=== PATIENT | male | born 1930 | race Caucasian/White ===

== ENCOUNTER 2016-06-20 12:59 | Inpatient (IN) | payer MEDICARE, OTHER ==
[2016-06-20] MEDS ORDERED: NALOXONE 0.4 MG/ML 1 ML VIAL IV PRN (15:52)
[2016-06-20] MEDS ORDERED: ACETAMINOPHEN TAB 325 MG TAB PO PRN (15:52)
[2016-06-20] MEDS ORDERED: ALPRAZolam 0.25 MG TAB PO PRN (15:54)
--- NOTE | 2016-06-20 16:26 | XR ---
EXAMINATION TYPE: XR chest 1V portable DATE OF EXAM: 06/20/2016 4:22 PM COMPARISON: NONE HISTORY: Pleural effusion TECHNIQUE: Single frontal view of the chest is obtained. FINDINGS: Abnormal increased attenuation present at the left lung base, the left hemidiaphragm is ob scured. Patient is rotated. No evident pneumothorax. Heart is obscured. IMPRESSION: Left lower lobe atelectasis versus pneumonia or underlying tumor with associated effusio n. Rotated exam. Follow-up as indicated.
[2016-06-20] MEDS: SODIUM CHLORIDE 0.9% 1,000 ML IV SCH (16:46)
[2016-06-20] MEDS ORDERED: NON-FORMULARY DRUG (Omeprazole 20 MG) PO SCH (17:00)
[2016-06-20 17:16] LABS: Anisocytosis Slight; Basophils % (A) 1 %; CHCM 32.3; Eosinophils # (A) 0.2 k/uL (0-0.7); Eosinophils % (A) 3 %; HCT 32.6 % (39.0-53.0); HDW 3.25; HGB 10.6 gm/dL (13.0-17.5); Hypochromasia Slight; Luc # (Auto) 0.23; Luc % (Auto) 4; Lymphocytes # (A) 1.1 k/uL (1.0-4.8); Lymphocytes % (A) 17 %; MCH 30.2 pg (25.0-35.0); MCHC 32.5 g/dL (31.0-37.0); MCV 93.1 fL (80.0-100.0); Mean Platelet Volume 8.7; Monocytes # (A) 0.5 k/uL (0-1.0); Monocytes % (A) 8 %; Neutrophils # (A) 4.2 k/uL (1.3-7.7); Neutrophils % (A) 67 %; RDW 16.4 % (11.5-15.5); WBC 6.2 k/uL (3.8-10.6); WBC (Perox) 6.76
[2016-06-20 17:24] LABS: ALT 70 U/L (21-72); AST 117 U/L (17-59); Alkaline Phosphatase 82 U/L (38-126); Anion Gap 11 mmol/L; Blood Urea Nitrogen 35 mg/dL (9-20); Calcium 9.7 mg/dL (8.4-10.2); Carbon Dioxide 26 mmol/L (22-30); Chloride 105 mmol/L (98-107); Glucose 109 mg/dL (74-99); Magnesium 1.9 mg/dL (1.6-2.3); Non-African American GFR(MDRD) 53 (>60 ml/min/1.73 sqM); Phosphorous 4.9 mg/dL (2.5-4.5); Potassium 4.4 mmol/L (3.5-5.1); Sodium 142 mmol/L (137-145); Total Bilirubin 0.6 mg/dL (0.2-1.3); Total Protein 6.5 g/dL (6.3-8.2)
[2016-06-20] MEDS: ATENOLOL 50 MG TAB PO SCH (17:25)
[2016-06-20] MEDS: LEVOFLOXACIN 500MG-D5W PMX 500 MG in DEXTROSE/WATER 1 100ML.BAG IVPB SCH (17:26)
[2016-06-20] MEDS: FUROSEMIDE 10 MG/ML 2 ML VIAL IV SCH (17:26)
[2016-06-20] MEDS: ISOSORBIDE MONONITRATE ER 30 MG TAB.ER.24H PO SCH (17:26)
[2016-06-20] MEDS: LISINOPRIL 20 MG TAB PO SCH (17:29)
[2016-06-20] MEDS: POTASSIUM CHLORIDE ER 20 MEQ TAB.ER PO SCH (17:30)
[2016-06-20 17:33] LABS: Manual Review Performed; Toxic Granulation Present
[2016-06-20 17:41] LABS: Creatine Kinase MB 1.6 ng/mL (0.0-2.4)
--- NOTE | 2016-06-20 18:43 | HP ---
DATE OF ADMISSION: CHIEF COMPLAINT: Shortness of breath and pleural effusion. HISTORY OF PRESENT ILLNESS: This 85-year-old gentleman with a past history of CAD, history of hypertension, hyperlipidemia, history of DJD, history of hypotension, history of colon cancer, history of appendectomy, history of tonsillectomy, adenoidectomy, being followed by Dr. Yury Talavera in the outpatient setting, presented to [facility] last week with complaints of abdominal pain and shortness of breath. Evaluation showed pleural effusion on the left side and further evaluation with CT scan also showed suspicious nodules. The patient was directly transferred to [facility] for further evaluation and treatment. The abdominal pain has improved at this time. The patient still has some shortness of breath and cough and sputum. There is no history of any fever, rigor, or chills. No history of any headache, loss of consciousness. PAST MEDICAL HISTORY: 1. History of CAD. 2. History of CAD. 3. History of hyperlipidemia. 4. History of hypertension. 5. History of DJD. 6. Adenoidectomy. 7. Appendectomy. Medications prior to admission include: 1. Prilosec 20 mg p.o. daily. 2. Methotrexate 7.5 mg q.7 days. 3. Imdur 30 mg daily. 4. Lasix 20 mg daily. 5. Folic acid 1 mg daily. 6. Klor-Con 20 mEq p.o. daily. 7. Zestril 20 mg p.o. daily. 8. Tenormin 50 mg daily. ALLERGIES: PENICILLIN and CRESTOR. FAMILY HISTORY: No history of heart disease or strokes in the family. SOCIAL HISTORY: Previous history of smoking. No current smoking or alcohol intake. REVIEW OF SYSTEMS: ENT: Diminished hearing. Diminished vision. CARDIOVASCULAR SYSTEM: As mentioned earlier. RESPIRATORY SYSTEM: As mentioned earlier. GI: As mentioned earlier. : No dysuria, retention. NERVOUS SYSTEM: No numbness or weakness. ALLERGY/IMMUNOLOGY: No asthma or hayfever. MUSCULOSKELETAL: As mentioned earlier. HEMATOLOGY/ONCOLOGY: As mentioned earlier. ENDOCRINE: No history of diabetes, hypothyroidism. CONSTITUTIONAL: As mentioned earlier. DERMATOLOGY: Negative. RHEUMATOLOGY: Negative. PSYCHIATRY: As mentioned earlier. PHYSICAL EXAMINATION: Patient alert and oriented x3. Pulse 73, blood pressure 136/63, respiration 18, temperature 97.7, pulse ox 94% on 2 L. HEENT: Conjunctivae normal. NECK: No jugular venous distention. CARDIOVASCULAR SYSTEM: S1, S2 muffled. No S3. No S4. RESPIRATORY SYSTEM: Breath sounds diminished at the bases. A few scattered rhonchi and crackles. Breath sounds are markedly diminished in the left side. ABDOMEN: Soft, nontender. No mass palpable. No hepatosplenomegaly. LEGS: No edema. No swelling. Pulses felt normally. NERVOUS SYSTEM: Higher functions as mentioned earlier. Moves all 4 limbs. No focal motor or sensory deficit. LYMPHATICS: No lymph node palpable in neck, axillae or groin. SKIN: No ulcer, rash, bleeding. Chest x-ray shows left pleural effusion. Other labs are pending at this time. ASSESSMENT: 1. Left-sided pleural effusion with possible pulmonary nodules; rule out metastatic pleural effusion. 2. History of colon cancer. 3. Possible chronic obstructive pulmonary disease. 4. Acute purulent tracheobronchitis. 5. Coronary artery disease. 6. History of hypertension. 7. Hyperlipidemia. 8. Degenerative joint disease. 9. History of anemia. 10. History of skin cancer. 11. History of appendectomy. 12. History of tonsillectomy. 13. History of cataracts. 14. Remote history of nicotine dependence. 15. FULL CODE. RECOMMENDATION: In this 85-year-old gentleman who presented with multiple complex medical issues, we will monitor the patient closely. I recommend empiric antibiotics and also pulmonary consultation for possible thoracocentesis and further evaluation. Otherwise, resume the home medications. DVT prophylaxis. Guarded prognosis. Further recommendations to follow. A copy of this dictation is being forwarded to Dr. Yury Talavera, who is the primary physician.
[2016-06-20] MEDS: LEVALBUTEROL NEB (CONC) 1.25 MG/0.5 ML AMP INHALATION SCH (19:03)
[2016-06-20] MEDS: IPRATROPIUM 0.5 MG/2.5 ML NEBU INHALATION SCH (19:03)
[2016-06-20] MEDS ORDERED: TEMAZEPAM 15 MG CAP PO PRN (21:00)
[2016-06-20] MEDS ORDERED: MELATONIN 3 MG TABLET PO PRN (21:00)
[2016-06-20 23:33] LABS: Creatine Kinase MB 1.2 ng/mL (0.0-2.4); Troponin I 0.023 ng/mL (0.000-0.034)
[2016-06-20] MEDS: HEPARIN SODIUM,PORCINE 5,000 UNIT/ML 1 ML VIAL SQ SCH (23:38)
[2016-06-21] MEDS: PANTOPRAZOLE 40 MG TABLET PO SCH (06:25)
[2016-06-21 06:59] LABS: Anisocytosis Slight; Basophils # (A) 0.1 k/uL (0-0.2); Basophils % (A) 1 %; CHCM 32.6; Eosinophils # (A) 0.2 k/uL (0-0.7); Eosinophils % (A) 3 %; HCT 32.5 % (39.0-53.0); HGB 10.5 gm/dL (13.0-17.5); Luc # (Auto) 0.21; Luc % (Auto) 3; Lymphocytes % (A) 14 %; MCHC 32.4 g/dL (31.0-37.0); MCV 92.4 fL (80.0-100.0); Monocytes # (A) 0.7 k/uL (0-1.0); Monocytes % (A) 9 %; Neutrophils % (A) 70 %; RBC 3.51 m/uL (4.30-5.90); RDW 16.3 % (11.5-15.5); WBC 7.1 k/uL (3.8-10.6); WBC (Perox) 7.43
[2016-06-21 07:09] LABS: Anion Gap 10 mmol/L; Blood Urea Nitrogen 30 mg/dL (9-20); Calcium 9.8 mg/dL (8.4-10.2); Carbon Dioxide 26 mmol/L (22-30); Chloride 107 mmol/L (98-107); Glucose 95 mg/dL (74-99); Non-African American GFR(MDRD) 58 (>60 ml/min/1.73 sqM); Potassium 4.4 mmol/L (3.5-5.1); Sodium 143 mmol/L (137-145)
[2016-06-21 07:16] LABS: Troponin I 0.024 ng/mL (0.000-0.034)
[2016-06-21 07:18] LABS: Manual Review Performed
[2016-06-21 07:20] LABS: Creatine Kinase MB 2.5 ng/mL (0.0-2.4)
[2016-06-21] MEDS: HEPARIN SODIUM,PORCINE 5,000 UNIT/ML 1 ML VIAL SQ SCH ×2 (07:46→21:06)
[2016-06-21] MEDS: FUROSEMIDE 10 MG/ML 2 ML VIAL IV SCH (07:46)
[2016-06-21] MEDS: ISOSORBIDE MONONITRATE ER 30 MG TAB.ER.24H PO SCH (07:47)
[2016-06-21] MEDS: POTASSIUM CHLORIDE ER 20 MEQ TAB.ER PO SCH (07:47)
[2016-06-21] MEDS: FOLIC ACID 1 MG TAB PO SCH (07:47)
[2016-06-21] MEDS: LISINOPRIL 20 MG TAB PO SCH (07:47)
[2016-06-21] MEDS: METHOTREXATE SODIUM 2.5 MG TAB PO SCH (07:47)
[2016-06-21] MEDS: ATENOLOL 50 MG TAB PO SCH (07:47)
[2016-06-21] MEDS: IPRATROPIUM 0.5 MG/2.5 ML NEBU INHALATION SCH ×3 (08:05→20:35)
[2016-06-21] MEDS: LEVALBUTEROL NEB (CONC) 1.25 MG/0.5 ML AMP INHALATION SCH ×3 (08:05→20:36)
[2016-06-21] MEDS ORDERED: PREGABALIN 50 MG CAP PO SCH ×2 (09:00→22:08)
[2016-06-21] MEDS ORDERED: RX INFO: IV CONTRAST WAS GIVEN 1 EACH MISC MISCELLANE PRN (10:40)
--- NOTE | 2016-06-21 10:40 | P.CONS ---
History of Present Illness - Reason for Consult Consult date: 06/21/16 - History of Present Illness The patient is an 85-year-old gentleman, with multiple medical problems. He states that he started feeling unwell about 2-3 weeks ago, with the weakness, decreased endurance, as well as shortness of breath on exertion. In addition he also complained of some left-sided lower abdominal pain. Due to progression of these symptoms represented to [facility]. He had a computed tomography scan done which showed the significant pleural effusion on the left side along with lung nodules. The patient was therefore transferred here for further workup. The patient has a history of colon cancer 2. He states that he had surgery about 5 years ago, as well as about 20 years ago. From his history it appears that these were early stage cancers as he did not require any adjuvant treatment. Review of Systems Constitutional: Reports poor appetite, Reports weakness, Reports weight loss ( 15 pounds) Eyes: denies blurred vision, denies pain Ears: bilateral: decreased hearing, deny: ear discharge, earache, tinnitus Ears, nose, mouth and throat: Denies headache, Denies sore throat Cardiovascular: Reports shortness of breath Respiratory: Reports congestion, Reports cough, Reports dyspnea Gastrointestinal: Reports abdominal pain Genitourinary: Reports incontinence, Reports urinary frequency Musculoskeletal: Reports muscle weakness Integumentary: Denies pruritus, Denies rash Neurological: Reports weakness Psychiatric: Denies anxiety, Denies depression Endocrine: Reports fatigue, Reports weight change Hematologic/Lymphatic: Reports as per HPI Past Medical History Past Medical History: Coronary Artery Disease (CAD), Cancer, Eye Disorder, Hyperlipidemia, Hypertension, Osteoarthritis (OA) Additional Past Medical History / Comment(s): hypotension, partial (bottom) dentures, anemia, colon ca, skin ca History of Any Multi-Drug Resistant Organisms: None Reported Past Surgical History: Adenoidectomy, Appendectomy, Tonsillectomy Additional Past Surgical History / Comment(s): Bilat cataract removal Past Anesthesia/Blood Transfusion Reactions: No Reported Reaction Past Psychological History: No Psychological Hx Reported Smoking Status: Former smoker Past Alcohol Use History: None Reported Past Drug Use History: None Reported - Past Family History Mother History Unknown: Yes Family Medical History: No Reported History Medications and Allergies Home Medications Medication Instructions Recorded Confirmed Type Atenolol [Tenormin] 50 mg PO DAILY 06/20/16 06/20/16 History Folic Acid 1 mg PO DAILY 06/20/16 06/20/16 History Furosemide [Lasix] 20 mg PO DAILY 06/20/16 06/20/16 History Isosorbide Mononitrate ER [Imdur] 30 mg PO DAILY 06/20/16 06/20/16 History Lisinopril [Zestril] 20 mg PO DAILY 06/20/16 06/20/16 History Methotrexate Sodium [Methotrexate] 7.5 mg PO Q7D 06/20/16 06/20/16 History Omeprazole [PriLOSEC] 20 mg PO DAILY 06/20/16 06/20/16 History Potassium Chloride [Klor-Con 20] 20 meq PO DAILY 06/20/16 06/20/16 History Pregabalin [Lyrica] 50 mg PO DAILY 06/20/16 06/20/16 History Allergies Allergy/AdvReac Type Severity Reaction Status Date / Time Penicillins Allergy Unknown Verified 06/20/16 16:07 rosuvastatin [From Crestor] Allergy Unknown Verified 06/20/16 16:07 Physical Exam Vitals: Vital Signs Temp Pulse Pulse Resp BP Pulse Ox 06/21/16 08:00 97.0 F L 73 20 162/69 94 L 06/21/16 04:00 96.5 F L 67 16 147/64 94 L 06/21/16 00:00 96.7 F L 72 17 131/60 93 L 06/20/16 20:00 96.8 F L 74 18 125/56 91 L 06/20/16 19:10 72 06/20/16 19:03 69 06/20/16 15:52 94 L 06/20/16 15:49 97.7 F 73 18 136/63 94 L Intake and Output 06/20/16 06/21/16 06/21/16 22:59 06:59 14:59 Intake Total 145 Output Total 400 Balance -255 Intake: IV 20 Sodium Chloride 0.9% 1, 20 000 ml @ 20 mls/hr IV . Q24H [facility] Rx#:[id number] Oral 125 Output: Urine 400 Other: Voiding Method Diaper Diaper Diaper # Voids 1 1 # Bowel Movements 1 Weight 61.23 kg 64.5 kg 64.5 kg Patient Weight 06/22/16 06:59 Weight 64.5 kg - Constitutional General appearance: morbidly obese - EENT Eyes: EOMI, PERRLA ENT: hard of hearing, normal oropharynx - Neck Neck: no lymphadenopathy Thyroid: bilateral: normal size - Respiratory Respiratory: left: diminished (Lower lobe), dullness (Lower lobe) - Cardiovascular Rhythm: regular Heart sounds: normal: S1, S2 - Gastrointestinal General gastrointestinal: normal bowel sounds, soft - Integumentary Integumentary: normal - Neurologic Neurologic: focal deficits (Hard of hearing) - Musculoskeletal Musculoskeletal: generalized weakness - Psychiatric Psychiatric: A&O x's 3, appropriate affect Results CBC & Chem 7: 06/21/16 05:32 06/21/16 05:32 Labs: Abnormal Lab Results - Last 24 Hours (Table) 06/20/16 06/20/16 06/21/16 Range/Units 16:46 16:46 05:32 RBC 3.50 L 3.51 L (4.30-5.90) m/uL Hgb 10.6 L 10.5 L (13.0-17.5) gm/dL Hct 32.6 L 32.5 L (39.0-53.0) % RDW 16.4 H 16.3 H (11.5-15.5) % Plt Count 100 L 86 L (150-450) k/uL BUN 35 H (9-20) mg/dL Creatinine 1.29 H (0.66-1.25) mg/dL Glucose 109 H (74-99) mg/dL Phosphorus 4.9 H (2.5-4.5) mg/dL AST 117 H (17-59) U/L Total Creatine Kinase (55-170) U/L CK-MB (CK-2) (0.0-2.4) ng/mL Albumin 3.3 L (3.5-5.0) g/dL 06/21/16 06/21/16 Range/Units 05:32 05:32 RBC (4.30-5.90) m/uL Hgb (13.0-17.5) gm/dL Hct (39.0-53.0) % RDW (11.5-15.5) % Plt Count (150-450) k/uL BUN 30 H (9-20) mg/dL Creatinine (0.66-1.25) mg/dL Glucose (74-99) mg/dL Phosphorus (2.5-4.5) mg/dL AST (17-59) U/L Total Creatine Kinase 254 H (55-170) U/L CK-MB (CK-2) 2.5 H* (0.0-2.4) ng/mL Albumin (3.5-5.0) g/dL Microbiology - Last 24 Hours (Table) 06/20/16 17:56 Urine Culture - Preliminary Urine,Voided Chest x-ray: report reviewed CT scan - chest: report reviewed Assessment and Plan (1) Pleural effusion Narrative/Plan: The patient is presenting with a unilateral pleural effusion, that is symptomatic. It is also associated with systemic symptoms such as weakness, loss of appetite and weight. The clinical picture is suspicious for malignancy , though other drug is are not ruled out at this time. He will need a tissue diagnosis, with the thoracentesis being the most suitable procedure, both from the therapeutic and diagnostic standpoint. Pulmonary medicine has been consulted. Since malignancy is concerned, I will also order computed tomography scan of the abdomen and pelvis. The patient was having abdominal pain previously, though this symptom appears to have subsided. Status: Acute (2) History of colon cancer Narrative/Plan: Per the patient, he actually has a history of 2 colon cancers, both treated with surgery. These appear to have been early stage with no adjuvant therapy needed, per the patient. Since recurrence with early-stage colon cancer after surgery is quite rare, and even more so after 5 years, and this time it is unlikely that this history is associated with his current presentation Status: Acute (3) Bicytopenia Narrative/Plan: The patient has a mild bicytopenia with hemoglobin in the 10-11 range, and platelets greater than 50. In this age group, and early myelodysplasia is likely diagnosis. Again, other etiologies are not ruled out. Labs for further workup will be ordered Status: Acute
--- NOTE | 2016-06-21 13:20 | P.CNPUL ---
History of Present Illness Consult date: 06/21/16 Reason for consult: dyspnea, cough, pneumonia Chief complaint: Shortness of breath and left-sided pleural effusion, possible pneumonia History of present illness: This is a 85-year-old man with a history of CAD hypertension hyperlipidemia DJD colon cancer. He sees Dr. Yury Talavera up in [place] as his primary doctor. He apparently presented to [facility] with complaints of abdominal pain and shortness of breath. He was found to have a pleural effusion on the left side. He apparently also had a computed tomography scan of the chest which showed suspicious nodules. The patient was transferred down to [facility]. We have limited information on this patient. He is a very poor historian. It appears his only complaints right now include weakness. Also complaining of some cough. No phlegm production. His past medical history is positive for CAD hyperlipidemia hypertension DJD colon cancer. Review of Systems ROS unobtainable: due to mental status (Review of systems is an appropriate or not reliable because of the patient's poor mental status and inability to give a history.) Past Medical History Past Medical History: Coronary Artery Disease (CAD), Cancer, Eye Disorder, Hyperlipidemia, Hypertension, Osteoarthritis (OA) Additional Past Medical History / Comment(s): hypotension, partial (bottom) dentures, anemia, colon ca, skin ca History of Any Multi-Drug Resistant Organisms: None Reported Past Surgical History: Adenoidectomy, Appendectomy, Tonsillectomy Additional Past Surgical History / Comment(s): Bilat cataract removal Past Anesthesia/Blood Transfusion Reactions: No Reported Reaction Past Psychological History: No Psychological Hx Reported Smoking Status: Former smoker Past Alcohol Use History: None Reported Past Drug Use History: None Reported - Past Family History Mother History Unknown: Yes Family Medical History: No Reported History Medications and Allergies Home Medications Medication Instructions Recorded Confirmed Type Atenolol [Tenormin] 50 mg PO DAILY 06/20/16 06/20/16 History Folic Acid 1 mg PO DAILY 06/20/16 06/20/16 History Furosemide [Lasix] 20 mg PO DAILY 06/20/16 06/20/16 History Isosorbide Mononitrate ER [Imdur] 30 mg PO DAILY 06/20/16 06/20/16 History Lisinopril [Zestril] 20 mg PO DAILY 06/20/16 06/20/16 History Methotrexate Sodium [Methotrexate] 7.5 mg PO Q7D 06/20/16 06/20/16 History Omeprazole [PriLOSEC] 20 mg PO DAILY 06/20/16 06/20/16 History Potassium Chloride [Klor-Con 20] 20 meq PO DAILY 06/20/16 06/20/16 History Pregabalin [Lyrica] 50 mg PO DAILY 06/20/16 06/20/16 History Allergies Allergy/AdvReac Type Severity Reaction Status Date / Time Penicillins Allergy Unknown Verified 06/20/16 16:07 rosuvastatin [From Crestor] Allergy Unknown Verified 06/20/16 16:07 Physical Exam Osteopathic Statement: *. No significant issues noted on an osteopathic structural exam other than those noted in the History and Physical/Consult. Vitals: Vital Signs Temp Pulse Pulse Resp BP Pulse Ox 06/21/16 11:58 66 18 06/21/16 11:57 97.1 F L 66 18 125/61 94 L 06/21/16 08:00 97.0 F L 73 20 162/69 94 L 06/21/16 04:00 96.5 F L 67 16 147/64 94 L 06/21/16 00:00 96.7 F L 72 17 131/60 93 L 06/20/16 20:00 96.8 F L 74 18 125/56 91 L 06/20/16 19:10 72 06/20/16 19:03 69 06/20/16 15:52 94 L 06/20/16 15:49 97.7 F 73 18 136/63 94 L Intake and Output 06/20/16 06/21/16 06/21/16 22:59 06:59 14:59 Intake Total 145 500 Output Total 400 200 Balance -255 300 Intake: IV 20 Sodium Chloride 0.9% 1, 20 000 ml @ 20 mls/hr IV . Q24H [facility] Rx#:[id number] Intake, IV Titration 500 Amount Sodium Chloride 0.9% 1, 500 000 ml @ 20 mls/hr IV . Q24H [facility] Rx#:[id number] Oral 125 Output: Urine 400 200 Other: Voiding Method Diaper Diaper Diaper # Voids 1 1 1 # Bowel Movements 1 Weight 61.23 kg 64.5 kg 64.5 kg Patient Weight 06/22/16 06:59 Weight 64.5 kg No acute distress, oriented 3. HEENT examination is grossly unremarkable. Neck supple. Full range of motion. Cardiovascular examination reveals regular rhythm rate. S1-S2 normal. Lungs reveal diminished breath sounds at the left base. A few scattered crackles are noted at the left base. No wheezes. Abdomen soft bowel sounds are heard. Extremities are intact. Results - Laboratory Findings CBC and BMP: 06/21/16 05:32 06/21/16 05:32 Abnormal lab findings: Abnormal Labs 06/20/16 06/20/16 06/21/16 16:46 16:46 05:32 RBC 3.50 L 3.51 L Hgb 10.6 L 10.5 L Hct 32.6 L 32.5 L RDW 16.4 H 16.3 H Plt Count 100 L 86 L BUN 35 H Creatinine 1.29 H Glucose 109 H Phosphorus 4.9 H AST 117 H Total Creatine Kinase CK-MB (CK-2) Albumin 3.3 L 06/21/16 06/21/16 05:32 05:32 RBC Hgb Hct RDW Plt Count BUN 30 H Creatinine Glucose Phosphorus AST Total Creatine Kinase 254 H CK-MB (CK-2) 2.5 H* Albumin - Diagnostic Findings Chest x-ray: image reviewed (Chest x-ray labs and medications are reviewed.) Assessment and Plan (1) Pneumonia Status: Acute (2) Lung mass Status: Acute (3) Bicytopenia Status: Acute (4) History of colon cancer Status: Acute (5) Pleural effusion Status: Acute Plan: Plan dated 06/21/2016 The CODE STATUS should be addressed with this patient. The patient's computed tomography scan from the other hospital and will be reviewed or effect not retrievable, we'll repeat the computed tomography scan here. We'll review the medications and the lab data. We'll make sure that he is on appropriate breathing medications. Additional recommendations suggestions are forthcoming. This either represents pneumonia with parapneumonic effusion or possible malignancy. Time with Patient: Greater than 30
[2016-06-21] MEDS: SODIUM CHLORIDE 0.9% 1,000 ML IV SCH (16:18)
[2016-06-21] MEDS: methylPREDNISolone SOD SUCCI 40 MG/ML 1 ML VIAL IV SCH ×2 (16:19→23:16)
[2016-06-21] MEDS: LEVOFLOXACIN 500MG-D5W PMX 500 MG in DEXTROSE/WATER 1 100ML.BAG IVPB SCH (16:19)
--- NOTE | 2016-06-21 17:02 | US ---
EXAMINATION TYPE: US chest DATE OF EXAM: 06/21/2016 2:50 PM COMPARISON: Chest x-ray June CLINICAL HISTORY: Left pleural effusion. EXAM MEASUREMENTS: Left Pleural Effusion fluid pocket: 5.0 cm Left skin to fluid thickness: 3.0 cm ultrasound performed of the posterior left chest. Pulmonologists are able to review the images in the patient?s EMR. IMPRESSIONS: Left pleural effusion.
--- NOTE | 2016-06-21 22:02 | PN ---
DATE OF SERVICE: 06/21/2016 This 85-year-old gentleman who was admitted with left-sided pleural effusion with possible pulmonary nodules is being evaluated at this time. The patient is still short of breath. Dr. Estrada is following the patient closely. A CAT scan has been repeated at this time. PAST MEDICAL HISTORY: Reviewed. REVIEW OF SYSTEMS: CARDIOVASCULAR: No angina, palpitations. RESPIRATORY: As mentioned earlier. GI: No nausea. : No dysuria. NERVOUS: No numbness or weakness. Current medications are reviewed, include: 1. Tylenol 650 every 6 hours p.r.n. 2. [place] 5 mg every 6 hours. 3. Xanax 0.25 t.i.d. 4. Tenormin 50 mg daily. 5. Folic acid 1 mg. 6. Lasix 20 mg IV daily. 7. Heparin 5 subcu b.i.d. 8. Dilaudid 0.5 mg every 6 hours p.r.n. 10. Atrovent t.i.d. 11. Imdur 30 mg daily. 12. Xopenex 1.25 t.i.d. 13. Levaquin 500 mg daily. 15. Melatonin 3 mg q.h.s. p.r.n. 16. Methotrexate 7.5 q.7 days. 17. Solu-Medrol 40 q.8. 18. Narcan 0.2 q.2 p.r.n. 19. Zofran. 20. Protonix 40 mg daily. 21. K-Dur 20 mEq p.o. daily. 22. Lyrica 50 mg daily. 23. Restoril 50 mg q.h.s. 24. Ultram 50 mg every 6 hours p.r.n. On physical exam, the patient is alert and oriented x3. Pulse 66, blood pressure 120/61, respirations 18, temperature 97.1, pulse ox 94% on 2L. HEENT: Conjunctivae normal. NECK: No jugular venous distension. CARDIOVASCULAR: S1 and S2 muffled. RESPIRATORY: Breath sounds diminished in the bases. Bilateral scattered rhonchi and crackles. Abdomen is soft, obese, nontender. LEGS: No edema. No swelling. NERVOUS SYSTEM: No focal deficits. LABS: WBC 7.5, hemoglobin is 10.1. Creatinine is 1.19. Creatinine again is 2.5. ASSESSMENT: 1. Left-sided pleural effusion with a possible pulmonary embolism. Rule out metastatic pleural effusion or lung cancer. 2. History of colon cancer. 3. Possible chronic obstructive pulmonary disease. 4. Acute purulent tracheobronchitis. 5. Coronary artery disease. 6. History of hypertension. 7. Hyperlipidemia. 8. History of degenerative joint disease. 9. History of anemia. 10. History of skin cancer. 11. History of appendectomy. 12. History of tonsillectomy. 13. History of cataracts. 14. Remote history nicotine dependence. 15. FULL CODE. RECOMMENDATIONS AND DISCUSSION: In this 85-year-old gentleman who presented with multiple complex medical issues, we will monitor the patient closely. Continue the current medications. Continue symptomatic treatment. Otherwise, I would recommend review the CAT scan report, continue the bronchodilators, continue with empiric antibiotics. Closely follow with pulmonary. Guarded prognosis because of multiple complex medical issues. Taper the steroids per Pulmonary. Further recommendations to follow. MTDD
[2016-06-21] MEDS: PREGABALIN 50 MG CAP PO SCH (22:59)
[2016-06-22 06:12] LABS: Glucose,Whole Blood 136 mg/dL (75-99)
[2016-06-22 06:14] LABS: Anisocytosis Slight; CH 30.5; CHCM 32.8; HCT 35.2 % (39.0-53.0); HDW 3.16; HGB 11.2 gm/dL (13.0-17.5); Immature Gran Flag Slight; MCH 29.7 pg (25.0-35.0); MCHC 31.8 g/dL (31.0-37.0); MCV 93.4 fL (80.0-100.0); Mean Platelet Volume 9.9; RBC 3.77 m/uL (4.30-5.90); RDW 16.4 % (11.5-15.5); Reticulocyte % 1.6 % (0.5-2.0); WBC 10.5 k/uL (3.8-10.6); WBC (Perox) 11.15
[2016-06-22 06:20] LABS: Anion Gap 8 mmol/L; Blood Urea Nitrogen 31 mg/dL (9-20); Carbon Dioxide 30 mmol/L (22-30); Chloride 106 mmol/L (98-107); Glucose 142 mg/dL (74-99); Iron 87 ug/dL (49-181); Non-African American GFR(MDRD) >60 (>60 ml/min/1.73 sqM); Sodium 144 mmol/L (137-145)
[2016-06-22] MEDS: PANTOPRAZOLE 40 MG TABLET PO SCH (06:21)
[2016-06-22] MEDS: INSULIN LISPRO (humaLOG) 300 UNIT/3 ML VIAL SQ SCH ×4 (06:22→21:35)
[2016-06-22 06:29] LABS: % Iron Saturation 44.4 % (20-50); Rheumatoid Factor, Qnt <9 IU/mL (<12); Total Iron Binding Capacity 196 ug/dL (261-462)
[2016-06-22 06:51] LABS: Add Differential Manual Differential
[2016-06-22 06:52] LABS: LDH 4846 U/L (313-618)
[2016-06-22 06:54] LABS: Large Platelets Present; Manual Review Performed; Myelocytes % 1.5 %; Nucleated Red Blood Cells 0 /100 WBC (0-0); Polychromasia Present; Total Cells Counted 200
[2016-06-22 07:10] LABS: Vitamin B12 >1000 pg/mL
[2016-06-22 07:26] LABS: Erythrocyte Sedimentation Rate 96 mm/hr (0-15)
[2016-06-22] MEDS: FUROSEMIDE 10 MG/ML 2 ML VIAL IV SCH (08:01)
[2016-06-22] MEDS: methylPREDNISolone SOD SUCCI 40 MG/ML 1 ML VIAL IV SCH ×2 (08:01→16:05)
[2016-06-22] MEDS: HEPARIN SODIUM,PORCINE 5,000 UNIT/ML 1 ML VIAL SQ SCH ×2 (08:01→21:31)
[2016-06-22] MEDS: FOLIC ACID 1 MG TAB PO SCH (08:02)
[2016-06-22] MEDS: LISINOPRIL 20 MG TAB PO SCH (08:02)
[2016-06-22] MEDS: PREGABALIN 50 MG CAP PO SCH ×2 (08:02→21:30)
[2016-06-22] MEDS: ISOSORBIDE MONONITRATE ER 30 MG TAB.ER.24H PO SCH (08:02)
[2016-06-22] MEDS: ATENOLOL 50 MG TAB PO SCH (08:02)
[2016-06-22] MEDS: POTASSIUM CHLORIDE ER 20 MEQ TAB.ER PO SCH (08:02)
[2016-06-22] MEDS: IPRATROPIUM-ALBUTEROL 3 ML NEB INHALATION SCH ×4 (08:16→20:06)
[2016-06-22] MEDS: IOHEXOL 350 MG/ML 25 ML BOTTLE (ORAL USE) PO PRN ×2 (09:58→10:57)
[2016-06-22 11:12] LABS: Glucose,Whole Blood 244 mg/dL (75-99)
--- NOTE | 2016-06-22 12:15 | P.PN ---
Subjective Progress note dated 06/22/2016 This is an 85-year-old male with a history of CAD hypertension hyperlipidemia arthritis and colon cancer. He sees Dr. English nereyda sutton. He presented to [facility] with complaints of abdominal pain and shortness of breath. He was found to have a left-sided pleural effusion. He also had a computed tomography scan of the chest which showed "" suspicious nodules. [facility]. Very poor historian. Does not appear to be having abdominal pain or any difficulty breathing. He is weak. A ultrasound of the left chest showed a small to moderate size left- sided pleural effusion. Objective - Vital Signs Vital signs: Vital Signs Temp 96.1 F L 06/22/16 07:45 Pulse 76 06/22/16 08:26 Resp 18 06/22/16 08:00 BP 200/81 06/22/16 07:45 Pulse Ox 93 L 06/22/16 07:45 Intake & Output 06/21/16 06/22/16 06/22/16 18:59 06:59 18:59 Intake Total 875 160 125 Output Total 200 300 300 Balance 675 -140 -175 Weight 64.5 kg 65.5 kg 65.5 kg Intake: IV 160 Sodium Chloride 0.9% 1, 160 000 ml @ 20 mls/hr IV . Q24H [facility] Rx#:[id number] Intake, IV Titration 500 Amount Sodium Chloride 0.9% 1, 500 000 ml @ 20 mls/hr IV . Q24H LIANE Rx#:[id number] Oral 375 125 Output: Urine 200 300 300 Other: Voiding Method Diaper Diaper Diaper # Voids 1 1 1 - Exam No acute distress, oriented 3. HEENT examinations unremarkable. Neck supple. Full range of motion. Cardiovascular examination reveals regular rhythm rate. No distinct murmur. S1 and S2 normal. No S3 or S4. Lungs reveal diminished breath sounds at the left base. A few scattered rhonchi and wheezes are noted. They're mostly left-sided. Abdomen soft bowel sounds are heard. Extremities are intact. - Labs CBC & Chem 7: 06/22/16 05:58 06/22/16 05:58 Labs: Abnormal Lab Results - Last 24 Hours (Table) 06/22/16 06/22/16 06/22/16 Range/Units 05:58 05:58 06:10 RBC 3.77 L (4.30-5.90) m/uL Hgb 11.2 L (13.0-17.5) gm/dL Hct 35.2 L (39.0-53.0) % RDW 16.4 H (11.5-15.5) % Plt Count 70 L (150-450) k/uL Neutrophils # (Manual) 8.2 H (1.3-7.7) k/uL ESR 96 H (0-15) mm/hr BUN 31 H (9-20) mg/dL Glucose 142 H (74-99) mg/dL POC Glucose (mg/dL) 136 H (75-99) mg/dL TIBC 196 L (261-462) ug/dL Ferritin 3220 H (18-464) ng/mL Lactate Dehydrogenase 4846 H (313-618) U/L 06/22/16 Range/Units 11:10 RBC (4.30-5.90) m/uL Hgb (13.0-17.5) gm/dL Hct (39.0-53.0) % RDW (11.5-15.5) % Plt Count (150-450) k/uL Neutrophils # (Manual) (1.3-7.7) k/uL ESR (0-15) mm/hr BUN (9-20) mg/dL Glucose (74-99) mg/dL POC Glucose (mg/dL) 244 H (75-99) mg/dL TIBC (261-462) ug/dL Ferritin (18-464) ng/mL Lactate Dehydrogenase (313-618) U/L Microbiology - Last 24 Hours (Table) 06/20/16 17:56 Urine Culture - Final Urine,Voided Assessment and Plan (1) Pneumonia Status: Acute (2) Lung mass Status: Acute (3) Bicytopenia Status: Acute (4) History of colon cancer Status: Acute (5) Pleural effusion Status: Acute Plan: Plan dated 06/21/2016 The CODE STATUS should be addressed with this patient. The patient's computed tomography scan from the other hospital and will be reviewed or effect not retrievable, we'll repeat the computed tomography scan here. We'll review the medications and the lab data. We'll make sure that he is on appropriate breathing medications. Additional recommendations suggestions are forthcoming. This either represents pneumonia with parapneumonic effusion or possible malignancy. Plan dated 06/22/2016 The patient may benefit from a left-sided thoracentesis. He does not appear to be having much distress or any distress right now from the respiratory standpoint. He would be primarily done for diagnosis. The patient's very weak. Additional recommendations suggestions are forthcoming. Medications labs and x-rays are reviewed. Time with Patient: Less than 30
--- NOTE | 2016-06-22 12:37 | CT ---
EXAMINATION TYPE: CT abdomen pelvis w con DATE OF EXAM: 06/22/2016 12:06 PM COMPARISON: NONE HISTORY: Left pleural effusion and abdominal pain CT DLP: 649.00 mGycm Automated exposure control for dose reduction was used. TECHNIQUE: Helical acquisition of images was performed from the lung bases through the pelvis. CONTRAST: Performed with Oral Contrast and with IV Contrast, patient injected with 100 ml mL of Omnipaque 300. FINDINGS: LUNG BASES: There is a left pleural effusion greater than right with associated atelectasis. Suspect some hilar adenopathy. Emphysematous changes are present within the lungs. LIVER/GB: The liver shows low attenuation likely due to fatty infiltration. Hypodensity is present on axial image 26 within the right lobe measuring 18 mm which is indeterminate. Additional hypodensity towards the dome on axial image 18 measures 2 cm. The gallbladder is contracted. PANCREAS: No significant abnormality is seen. SPLEEN: No significant abnormality is seen. ADRENALS: No significant abnormality is seen. KIDNEYS: Nonobstructive calculus present in the left kidney posterior cortex mid pole measures 8 mm. No hydronephrosis bilaterally. RETROPERITONEAL ADENOPATHY: There is retroperitoneal adenopathy seen at the level of the celiac axis and root of the mesentery to the left of midline. REPRODUCTIVE ORGANS: Prostate is enlarged and shows associated calcifications URINARY BLADDER: Bladder wall thickening may be due to chronic outlet obstruction. PELVIC ADENOPATHY: None visualized. OSSEOUS STRUCTURES: No significant abnormality is seen. BOWEL: Postop change noted at the descending colon, surgical clips suture also present within the mi d transverse colon level. Present within the mesenteric fat. OTHER: Aorta shows normal caliber but atheromatous change, there are coronary artery calcifications. IMPRESSION: FINDINGS SUGGEST METASTATIC DISEASE, CONSIDER LYMPHOMA, LEUKEMIA.
[2016-06-22 13:31] LABS: INR 1.2 (<1.1)
[2016-06-22] MEDS: SODIUM CHLORIDE 0.9% 1,000 ML IV SCH (15:35)
--- NOTE | 2016-06-22 15:45 | P.PN ---
Subjective Principal diagnosis: Left pleural effusion The patient continues to complain of a cough with expectoration. He denies any abdominal pain currently. Respiratory status is stable. He states that he feels fairly comfortable at rest Objective - Vital Signs Vital signs: Vital Signs Temp 96.2 F L 06/22/16 12:00 Pulse 93 06/22/16 12:00 Resp 18 06/22/16 12:00 BP 136/62 06/22/16 12:00 Pulse Ox 93 L 06/22/16 12:00 Intake & Output 06/21/16 06/22/16 06/22/16 18:59 06:59 18:59 Intake Total 875 160 250 Output Total 200 300 603 Balance 675 140 -353 Weight 64.5 kg 65.5 kg 65.5 kg Intake: IV 160 Sodium Chloride 0.9% 1, 160 000 ml @ 20 mls/hr IV . Q24H [facility] Rx#:[id number] Intake, IV Titration 500 Amount Sodium Chloride 0.9% 1, 500 000 ml @ 20 mls/hr IV . Q24H LIANE Rx#:[id number] Oral 375 250 Output: Urine 200 300 600 Stool 3 Other: Voiding Method Diaper Diaper Diaper # Voids 1 1 1 - Constitutional General appearance: Present: no acute distress - EENT ENT: Present: hearing grossly normal, normal oropharynx - Respiratory Respiratory: left: diminished - Cardiovascular Rhythm: regular Heart sounds: normal: S1, S2 - Gastrointestinal General gastrointestinal: Present: normal bowel sounds, soft - Integumentary Integumentary: Present: normal - Neurologic Neurologic: Present: CNII-XII intact - Musculoskeletal Musculoskeletal: Present: generalized weakness, strength equal bilaterally - Psychiatric Psychiatric: Present: A&O x's 3 - Labs CBC & Chem 7: 06/22/16 05:58 06/22/16 05:58 Labs: Abnormal Lab Results - Last 24 Hours (Table) 06/22/16 06/22/16 06/22/16 Range/Units 05:58 05:58 06:10 RBC 3.77 L (4.30-5.90) m/uL Hgb 11.2 L (13.0-17.5) gm/dL Hct 35.2 L (39.0-53.0) % RDW 16.4 H (11.5-15.5) % Plt Count 70 L (150-450) k/uL Neutrophils # (Manual) 8.2 H (1.3-7.7) k/uL ESR 96 H (0-15) mm/hr BUN 31 H (9-20) mg/dL Glucose 142 H (74-99) mg/dL POC Glucose (mg/dL) 136 H (75-99) mg/dL TIBC 196 L (261-462) ug/dL Ferritin 3220 H (18-464) ng/mL Lactate Dehydrogenase 4846 H (313-618) U/L 06/22/16 Range/Units 11:10 RBC (4.30-5.90) m/uL Hgb (13.0-17.5) gm/dL Hct (39.0-53.0) % RDW (11.5-15.5) % Plt Count (150-450) k/uL Neutrophils # (Manual) (1.3-7.7) k/uL ESR (0-15) mm/hr BUN (9-20) mg/dL Glucose (74-99) mg/dL POC Glucose (mg/dL) 244 H (75-99) mg/dL TIBC (261-462) ug/dL Ferritin (18-464) ng/mL Lactate Dehydrogenase (313-618) U/L Microbiology - Last 24 Hours (Table) 06/20/16 17:56 Urine Culture - Final Urine,Voided Assessment and Plan (1) Pleural effusion Narrative/Plan: The patient was seen by the pulmonary service, and chest ultrasound was done. Overall the size of the fluid pocket appear to be fairly small. Thus thoracentesis is less likely to provide therapeutic benefit. At this time however, it does appear to be the best target for tissue diagnosis for suspected malignancy. Therefore, would recommend proceeding with the same for diagnostic purposes CT of the abdomen and pelvis showed a heterogenous appearing liver without any obvious mass. There was evidence of enlarged upper abdominal adenopathy, also suspicious for malignancy. However these nodes are not easily accessible for tissue diagnosis Status: Acute (2) History of colon cancer Status: Acute (3) Bicytopenia Narrative/Plan: Counts are stable and a safe range. Lab workup so far indicates no evidence of any deficiency. Both ferritin and LDH are markedly increased, indicating an inflammatory process, that could be compatible with malignancy or infection. Await the rest of the lab results Status: Acute
[2016-06-22] MEDS: LEVOFLOXACIN 500MG-D5W PMX 500 MG in DEXTROSE/WATER 1 100ML.BAG IVPB SCH (16:04)
[2016-06-22 16:51] LABS: Glucose,Whole Blood 167 mg/dL (75-99)
--- NOTE | 2016-06-22 20:26 | CT ---
EXAMINATION TYPE: CT brain wo con DATE OF EXAM: 06/22/2016 8:12 PM COMPARISON: NONE HISTORY: Lung mass, possible mets. Change in mental status. CT DLP: 1040.70 mGycm. Automated Exposure Control for Dose Reduction was Utilized. FINDINGS: There is no acute intracranial hemorrhage or midline shift identified. There is diffuse v entricular and sulcal prominence consistent with diffuse age-related cerebral atrophy. There is low- attenuation in the periventricular white matter consistent with chronic small vessel ischemic change. Scleral calcification both globes is present. Visualized paranasal sinuses are clear. There is moder ate calcified plaque in the distal internal carotid arteries bilaterally. IMPRESSION: No acute intracranial hemorrhage or midline shift. There is moderate diffuse age-relate d cerebral atrophy and chronic small vessel ischemic change noted. No suspicious areas of edema to s uggest large metastatic foci identified. Contrast-enhanced MRI is noted more sensitive.
--- NOTE | 2016-06-22 20:34 | CT ---
EXAMINATION TYPE: CT chest wo con DATE OF EXAM: 06/22/2016 8:12 PM COMPARISON: Chest x-ray from 2 days ago. Left chest ultrasound from one day ago. CT abdomen and pelvi s from earlier today. HISTORY: Lung mass. CT DLP: 458.20 mGycm. Automated Exposure Control for Dose Reduction was Utilized. TECHNIQUE: CT scan of the thorax is performed without IV contrast. FINDINGS: LUNGS: There is persistent small to moderate-sized left pleural effusion or fluid collection. Hounsfi eld units are greater than simple fluid averaging between 55 and 35 suggesting a blood product compon ent. There is more prominent masslike atelectasis and/or consolidation in the left lower lobe. There is background of moderate emphysematous change. Central bronchi are patent. Right lung is clear. No p neumothorax is seen bilaterally. MEDIASTINUM: Lack of IV contrast is noted to limit evaluation for mediastinal and especially hilar a denopathy. There are suspected enlarged thoracic lymph nodes most pronounced subcarinal level, for re ference left subcarinal/peribronchial lymph node measures 2.8 x 1.6 cm on coronal image 50. There is enlarged left infrahilar lymph node measuring 2.1 x 1.8 cm on axial image 39 seen better on recent CT abdomen study with contrast. No cardiomegaly or pericardial effusion is seen. Coronary artery calcif ication is present. OTHER: There are several vague hypodense lesions scattered throughout the liver seen better on this s tudy versus prior exam. At least 10 lesions are felt present. Metastatic disease needs to BE strongly considered given presence of multiple lesions. Moderate to severe multilevel spurring in the thoraci c spine is present. There are surgical sutures and clips in the left upper to mid abdomen anteriorly. No suspicious adrenal masses are noted. IMPRESSION: 1. Persistent small to moderate-sized left pleural effusion or fluid collection, Hounsfield units are higher than expected for simple fluid, blood product is suspected. In addition there is more promine nt masslike consolidation in the expected for typical atelectasis, underlying neoplasm needs to BE co nsidered. Consider bronchoscopy and/or PET CT correlation as there is abnormal thoracic adenopathy al so noted. Multiple vague hypodense lesions scattered throughout the liver are more numerous than appr eciated on recent abdominal CT worrisome for metastatic disease.
[2016-06-22 20:37] LABS: Glucose,Whole Blood 160 mg/dL (75-99)
[2016-06-23] MEDS: HYDROcodone/APAP 5-325MG 1 EACH TAB PO PRN (00:38)
[2016-06-23] MEDS: methylPREDNISolone SOD SUCCI 40 MG/ML 1 ML VIAL IV SCH ×4 (00:44→23:41)
[2016-06-23 05:34] LABS: Glucose,Whole Blood 121 mg/dL (75-99)
[2016-06-23] MEDS: INSULIN LISPRO (humaLOG) 300 UNIT/3 ML VIAL SQ SCH ×4 (06:14→20:29)
[2016-06-23] MEDS: PANTOPRAZOLE 40 MG TABLET PO SCH (06:49)
[2016-06-23 07:02] LABS: Anion Gap 9 mmol/L; Blood Urea Nitrogen 42 mg/dL (9-20); Calcium 9.7 mg/dL (8.4-10.2); Carbon Dioxide 27 mmol/L (22-30); Chloride 106 mmol/L (98-107); Glucose 119 mg/dL (74-99); Non-African American GFR(MDRD) 57 (>60 ml/min/1.73 sqM); Potassium 4.9 mmol/L (3.5-5.1); Sodium 142 mmol/L (137-145)
[2016-06-23 07:13] LABS: Anisocytosis Slight; Basophils # (A) 0.1 k/uL (0-0.2); Basophils % (A) 1 %; CH 29.9; CHCM 32.3; Eosinophils % (A) 0 %; HCT 32.5 % (39.0-53.0); HDW 3.18; HGB 10.6 gm/dL (13.0-17.5); Hypochromasia Slight; Luc # (Auto) 0.16; Luc % (Auto) 1; Lymphocytes % (A) 7 %; MCH 30.4 pg (25.0-35.0); MCHC 32.7 g/dL (31.0-37.0); Mean Platelet Volume 9.8; Monocytes # (A) 0.5 k/uL (0-1.0); Monocytes % (A) 4 %; Neutrophils # (A) 12.1 k/uL (1.3-7.7); Neutrophils % (A) 87 %; RDW 16.7 % (11.5-15.5); WBC 13.9 k/uL (3.8-10.6); WBC (Perox) 14.16
[2016-06-23] MEDS: IPRATROPIUM-ALBUTEROL 3 ML NEB INHALATION SCH ×4 (07:18→19:50)
[2016-06-23] MEDS: FOLIC ACID 1 MG TAB PO SCH (09:05)
[2016-06-23] MEDS: FUROSEMIDE 10 MG/ML 2 ML VIAL IV SCH (09:05)
[2016-06-23] MEDS: ATENOLOL 50 MG TAB PO SCH (09:05)
[2016-06-23] MEDS: LISINOPRIL 20 MG TAB PO SCH (09:06)
[2016-06-23] MEDS: HEPARIN SODIUM,PORCINE 5,000 UNIT/ML 1 ML VIAL SQ SCH ×2 (09:06→20:20)
[2016-06-23] MEDS: POTASSIUM CHLORIDE ER 20 MEQ TAB.ER PO SCH (09:06)
[2016-06-23] MEDS: ISOSORBIDE MONONITRATE ER 30 MG TAB.ER.24H PO SCH (09:06)
[2016-06-23] MEDS: PREGABALIN 50 MG CAP PO SCH ×2 (09:06→20:20)
--- NOTE | 2016-06-23 10:22 | PN ---
DATE OF SERVICE: 06/22/2016 This is an 85-year-old gentleman who was admitted with left pleural effusion, also suspicion of underlying left lung mass. The patient also had abdominal pelvis CAT scan yesterday, which showed diffuse retroperitoneal lymphadenopathy and as well as at the level of celiac axis and root of the mesentery to the left of the midline. The patient also has some prostate enlargement along with some liver lesions. Lung base also had pleural effusion and also hilar adenopathy. Also suspect lymphoma is considered possibility. Dr. Comer is following the patient also. Dr. Estrada is also following the patient closely. PAST MEDICAL HISTORY: Reviewed. REVIEW OF SYSTEMS: CARDIOVASCULAR: As mentioned earlier. RESPIRATORY: As mentioned earlier. GI: No nausea. : No dysuria. NERVOUS SYSTEM: No numbness or weakness. Current medications are reviewed and include: 1. Tylenol 650 q.6 p.r.n. 2. Maxwell 5 mg q.6 p.r.n. 3. DuoNeb q.i.d. and p.r.n. 4. Xanax 0.25 t.i.d. 5. Tenormin 50 mg daily. 6. Folic acid 1 mg daily. 7. Lasix 20 mg daily. 8. Heparin 5000 subQ b.i.d. 9. Dilaudid 0.5 q.6 p.r.n. 10. Imdur 30 mg p.o. daily. 11. Levaquin 500 mg daily. 12. Zestril 20 mg p.o. daily. 13. Melatonin. 14. Methotrexate 7.5 q. 7 days. 15. Solu-Medrol 40 IV q.8. 16. Narcan. 17. Zofran. 18. Protonix. 19. K-Dur 20 mEq p.o. daily. 20. Lyrica 50 mg p.o. b.i.d. 21. Restoril 50 mg q.h.s. p.r.n. 22. Ultram 50 mg q.6 p.r.n. PHYSICAL EXAM: Patient is alert and oriented x2. Pulse 80, blood pressure 125/58, respiration 18, temperature is 96.7, pulse ox 93% on 2 L. HEENT: Conjunctivae normal, oral mucosa moist. NECK: No jugular venous enlargement, no carotid bruit, no lymph node enlargement. CARDIOVASCULAR: S1, S2, muffled, no S3, no S4. RESPIRATORY: Breath sounds diminished at the bases, a few scattered rhonchi, no crackles. Breath sounds are markedly diminished on the left side. Abdomen is soft, nontender. No mass palpable. EXTREMITIES: Legs no edema. No swelling. NERVOUS SYSTEM: No focal deficits, mild diffuse weakness. Labs are WBC is 10.5, hemoglobin 11.2, sodium 144, potassium 5, otherwise, ferritin and LDH are noted, rheumatoid factor less than 9. ASSESSMENT: 1. Left-sided pleural effusion with possible pulmonary mass lesion, rule out metastatic pleural effusion or lung cancer. 2. Retroperitoneal lymphadenopathy and hilar lymphadenopathy, rule out lymphoma. 3. History of colon cancer. 4. History of possible chronic obstructive pulmonary disease. 5. Acute purulent tracheobronchitis. 6. Coronary artery disease history. 7. Hypertension. 8. Hyperlipidemia. 9. History of degenerative joint disease. 10. History of anemia. 11. History of skin cancer. 12. History of appendectomy. 13. History of tonsillectomy. 14. History of cataracts. 15. Remote history of nicotine dependence. 16. FULL CODE. RECOMMENDATION: In this 85-year-old gentleman who presented with multiple complex medical issues, will monitor the patient closely. Continue with the current medications, continue with the symptomatic treatment. Recommend CAT scan of the chest, also. Other than that, would also recommend Interventional Radiology for pleural aspiration and further studies. Closely follow with Pulmonary. Guarded prognosis because of multiple complex medical issues. Further recommendations to follow. Dr. Comer's input appreciated. See orders for further details. I had a detailed discussion with family also regarding further course of action, who understood and agreed.
--- NOTE | 2016-06-23 10:40 | XR ---
EXAMINATION TYPE: XR chest 2V DATE OF EXAM: 06/23/2016 10:34 AM COMPARISON: 06/20/2016 HISTORY: 85-year-old male follow-up pneumonia TECHNIQUE: Frontal and lateral views FINDINGS: The inferior left heart margin remains obscured by adjacent pleural parenchymal disease. Continued mo derate-sized left pleural effusion with adjacent opacity without significant interval change. IMPRESSION: Continued moderate left pleural effusion with adjacent atelectasis and/or consolidation. Underlying m ass not excluded. No significant change.
[2016-06-23 11:33] LABS: Glucose,Whole Blood 148 mg/dL (75-99)
[2016-06-23 11:45] LABS: Free Kappa Lt Chain Qnt, Serum 2.48 mg/dL (0.33 - 1.94); Kappa/Lambda Light Chain Ratio 1.46 (0.26 - 1.65)
--- NOTE | 2016-06-23 14:05 | XR ---
EXAMINATION TYPE: XR chest 1V portable DATE OF EXAM: 06/23/2016 1:37 PM Comparison: Earlier today Clinical History: 85-year-old male status post left thoracentesis Findings: The cardiomediastinal silhouette, aorta, and pulmonary vasculature are within normal limits. Mild d iffuse interstitial prominence and mild hyperinflation could reflect underlying COPD. There is residu al focal left basilar density with residual small effusion, improved from prior. No appreciable pneum othorax. Impression: 1. COPD with interval decrease in size of the left pleural effusion. There remains a small effusion w ithout appreciable pneumothorax. 2. There is additional residual focal left basilar density. The possibility of a mass is not entirely excluded at this time.
[2016-06-23] MEDS: SODIUM CHLORIDE 0.9% 1,000 ML IV SCH (15:25)
[2016-06-23 16:12] LABS: ANA w/Reflex to Titer POSITIVE (NEGATIVE)
[2016-06-23 16:35] LABS: Glucose,Whole Blood 204 mg/dL (75-99)
[2016-06-23] MEDS: LEVOFLOXACIN 250 MG TAB PO SCH (16:58)
[2016-06-23 17:17] LABS: RBC, Body Fluid 223600 /uL
--- NOTE | 2016-06-23 17:23 | P.PN ---
Subjective 85-year-old male patient with known history of coronary artery disease, hypertension, hyperlipidemia, remote history of colon cancer who came into the hospital because of worsening shortness of breath and he was found to have a large left-sided pleural effusion. CAT scan of the chest was done and the patient was transferred to [facility] for further evaluation and treatment. A repeat CAT scan of the chest was done here in our hospital and the patient had limited evaluation of the mediastinum and the hilar area. There was suspected enlarged thoracic lymph nodes there were more pronounced at the level of the subcarina and for reference left subcarinal/peribronchial lymph node was measuring 2.8 x 1.6 cm in size and there was a large left infrahilar lymph node measuring 2.1 x 1.8 cm in size. No cardiomegaly or pericardial effusion. There was some vague hypodense lesions scattered throughout the liver and this raises the suspicion for metastatic disease. I've always broken this patient earlier this morning. I proceeded with a thoracentesis of the left lung and a total of 850 of hemorrhagic pleural effusion was aspirated from the left lung without any major complications. The patient tolerated the procedure well and his pulse ox remained above 90% without any desaturation or hypotension. Postprocedure chest x-ray showed a decrease in the left-sided pleural effusion and there was no evidence of any pneumothorax or complications noted. Objective - Vital Signs Vital signs: Vital Signs Temp 97 F L 06/23/16 15:25 Pulse 81 06/23/16 15:25 Resp 18 06/23/16 15:25 BP 131/63 06/23/16 15:25 Pulse Ox 94 L 06/23/16 15:25 Intake & Output 06/22/16 06/23/16 06/23/16 18:59 06:59 18:59 Intake Total 625 360 380 Output Total 909 8 Balance -284 352 380 Weight 65.5 kg 65.5 kg Intake: IV 120 80 Sodium Chloride 0.9% 1, 120 80 000 ml @ 20 mls/hr IV . Q24H [facility]ANE Rx#:[id number] Oral 625 240 300 Output: Urine 900 Stool 9 8 Other: Voiding Method Diaper Diaper Diaper # Voids 1 1 1 # Bowel Movements 1 - Exam Head exam was generally normal. There was no scleral icterus or corneal arcus. Mucous membranes were moist.Neck was supple and without jugular venous distension, thyromegaly, or carotid bruits. Carotids were easily palpable bilaterally. There was no adenopathy. Lung sounds are diminished in left lung base otherwise the rest of the lungs are essentially clear.Cardiac exam revealed the PMI to be normally situated and sized. The rhythm was regular and no extrasystoles were noted during several minutes of auscultation. The first and second heart sounds were normal and physiologic splitting of the second heart sound was noted. There were no murmurs, rubs, clicks, or gallops.Abdominal exam revealed normal bowel sounds. The abdomen was soft, non- tender, and without masses, organomegaly, or appreciable enlargement of the abdominal aorta.Examination of the extremities revealed easily palpable radial, femoral and pedal pulses. There was no cyanosis, clubbing or edema. - Labs CBC & Chem 7: 06/23/16 06:09 06/23/16 06:09 Labs: Abnormal Lab Results - Last 24 Hours (Table) 06/22/16 06/22/16 06/22/16 Range/Units 05:58 05:58 20:36 WBC (3.8-10.6) k/uL RBC (4.30-5.90) m/uL Hgb (13.0-17.5) gm/dL Hct (39.0-53.0) % RDW (11.5-15.5) % Plt Count (150-450) k/uL Neutrophils # (1.3-7.7) k/uL BUN (9-20) mg/dL Glucose (74-99) mg/dL POC Glucose (mg/dL) 160 H (75-99) mg/dL [facility] Screen POSITIVE H (NEGATIVE) Free [place] LC, Quant 2.48 H (0.33 - 1.94) mg/dL 06/23/16 06/23/16 06/23/16 Range/Units 05:33 06:09 06:09 WBC 13.9 H (3.8-10.6) k/uL RBC 3.50 L (4.30-5.90) m/uL Hgb 10.6 L (13.0-17.5) gm/dL Hct 32.5 L (39.0-53.0) % RDW 16.7 H (11.5-15.5) % Plt Count 84 L (150-450) k/uL Neutrophils # 12.1 H (1.3-7.7) k/uL BUN 42 H (9-20) mg/dL Glucose 119 H (74-99) mg/dL POC Glucose (mg/dL) 121 H (75-99) mg/dL [facility] Screen (NEGATIVE) Free [place] LC, Quant (0.33 - 1.94) mg/dL 06/23/16 06/23/16 Range/Units 11:17 16:25 WBC (3.8-10.6) k/uL RBC (4.30-5.90) m/uL Hgb (13.0-17.5) gm/dL Hct (39.0-53.0) % RDW (11.5-15.5) % Plt Count (150-450) k/uL Neutrophils # (1.3-7.7) k/uL BUN (9-20) mg/dL Glucose (74-99) mg/dL POC Glucose (mg/dL) 148 H 204 H (75-99) mg/dL [facility] Screen (NEGATIVE) Free [place] LC, Quant (0.33 - 1.94) mg/dL Assessment and Plan Plan: Assessment 1 bloody left-sided pleural effusion, status post diagnostic and therapeutic thoracentesis with evacuation of 850 mL of fluid without any complications 2 shortness of breath secondary to above, improving 3 remote history of colon cancer 4 mediastinal and hilar lymphadenopathy, rule out malignancy 5 vague liver lesions which raises suspicion for hepatic metastases 6 hyperlipidemia 7 hypertension 8 coronary artery disease Plan Continue the supportive care. The pleural fluid was sent for analysis. We'll be awaiting for the results of the pleural fluid cytology and chemistry. We'll make further recommendations based on the results. Oncology is on the case suspecting a underlying metastatic carcinoma specially with the above-mentioned liver findings.
--- NOTE | 2016-06-23 17:26 | P.PCN ---
Date of Procedure: 06/23/16 Preoperative Diagnosis: Left-sided pleural effusion Postoperative Diagnosis: Left-sided pleural effusion Anesthesia: local Surgeon: Jannie Solis Estimated Blood Loss (ml): 0 Pathology: other Condition: stable Disposition: no change Indications for Procedure: Left-sided pleural effusion Operative Findings: The procedure including the potential complication with extended to the patient at length. The patient was placed in the usual fashion with the arms extended to the bedside table. Left chest was exposed. The ultrasound markings was noted. Chlorhexidine was applied to the left chest for adequate stabilization and cleaning. Following that, using a 25-gauge needle, the skin was infiltrated with lidocaine and adequate local anesthetics was applied. Following that, a thoracentesis catheter was inserted to the left hemithorax and a total of 850 mL of bloody pleural effusion was aspirated from the left lung without any complications. The patient tolerated the procedure well without any complications. The catheter was removed and the pleural fluid was sent for pathology. Meanwhile, a chest x-ray was done that showed no evidence of any pneumothorax.
[2016-06-23 20:33] LABS: Glucose,Whole Blood 176 mg/dL (75-99)
[2016-06-24 05:51] LABS: Glucose,Whole Blood 138 mg/dL (75-99)
[2016-06-24] MEDS: PANTOPRAZOLE 40 MG TABLET PO SCH (06:10)
[2016-06-24] MEDS: INSULIN LISPRO (humaLOG) 300 UNIT/3 ML VIAL SQ SCH ×4 (06:11→21:18)
[2016-06-24 06:37] LABS: Anisocytosis Slight; CH 30.6; CHCM 33.7; HDW 3.18; HGB 11.4 gm/dL (13.0-17.5); Large Platelets Flag Moderate; MCH 29.7 pg (25.0-35.0); MCHC 32.6 g/dL (31.0-37.0); MCV 91.1 fL (80.0-100.0); Mean Platelet Volume 12.2; RBC 3.84 m/uL (4.30-5.90); RDW 16.9 % (11.5-15.5); WBC (Perox) 13.91
[2016-06-24 07:04] LABS: Add Differential Manual Differential
[2016-06-24 07:06] LABS: Manual Review Performed; Nucleated Red Blood Cells 1 /100 WBC (0-0); Total Cells Counted 100; WBC 14.6 k/uL (3.8-10.6)
[2016-06-24 07:07] LABS: Ovalocytes Present
[2016-06-24 07:34] LABS: Anion Gap 11 mmol/L; Carbon Dioxide 24 mmol/L (22-30); Chloride 105 mmol/L (98-107); Glucose 107 mg/dL (74-99); Potassium 5.6 mmol/L (3.5-5.1); Sodium 140 mmol/L (137-145)
[2016-06-24 07:35] LABS: Blood Urea Nitrogen 47 mg/dL (9-20); Non-African American GFR(MDRD) >60 (>60 ml/min/1.73 sqM)
[2016-06-24] MEDS: ATENOLOL 50 MG TAB PO SCH (08:39)
[2016-06-24] MEDS: methylPREDNISolone SOD SUCCI 40 MG/ML 1 ML VIAL IV SCH ×2 (08:39→15:29)
[2016-06-24] MEDS: IPRATROPIUM-ALBUTEROL 3 ML NEB INHALATION SCH ×5 (08:40→20:04)
[2016-06-24] MEDS: ISOSORBIDE MONONITRATE ER 30 MG TAB.ER.24H PO SCH (08:40)
[2016-06-24] MEDS: FUROSEMIDE 10 MG/ML 2 ML VIAL IV SCH (08:40)
[2016-06-24] MEDS: FOLIC ACID 1 MG TAB PO SCH (08:40)
[2016-06-24] MEDS: PREGABALIN 50 MG CAP PO SCH ×2 (08:40→21:18)
[2016-06-24] MEDS: LISINOPRIL 20 MG TAB PO SCH (08:40)
[2016-06-24 08:50] LABS: Calcium 10.4 mg/dL (8.4-10.2)
--- NOTE | 2016-06-24 10:39 | PN ---
DATE OF SERVICE: 06/23/2016 This 85-year-old gentleman who was admitted with left-sided pleural effusion with possible pulmonary mass, also had multiple retroperitoneal lymphadenopathy also. Dr. Solis performed a left thoracocentesis, about 850 mL of bloody pleural effusion was aspirated. Patient tolerated the procedure. Patient is being closely monitored at this time. No chest pain, no palpitation. No fever. On exam, alert and oriented x2. Pulse 81, blood pressure 131/65, respirations 18, temperature 97 degrees, pulse ox 94% on 2-L. HEENT: Conjunctivae normal. NECK: No jugular venous distention. CARDIOVASCULAR: S1 and S2, muffled. RESPIRATORY: Breath sounds diminished at the bases. A few scattered rhonchi and crackles. ABDOMEN: Soft, nontender. No mass palpable. LEGS: No edema, no swelling. NERVOUS SYSTEM: No focal deficits. LABS: WBC 13.4, hemoglobin 10.6, the pleural fluid is hemorrhagic. ASSESSMENT: 1. Left-sided hemorrhagic pleural effusion with possible pulmonary mass lesion, rule out metastatic pleural effusion and/or lung cancer, status post left thoracocentesis of 850 mL. 2. Retroperitoneal lymphadenopathy and hilar lymphadenopathy rule out lymphoma or metastatic malignancy. 3. History of colon cancer. 4. History of possible chronic obstructive pulmonary disease. 5. Acute purulent tracheobronchitis. 6. Coronary artery disease history. 7. Hypertension. 8. Gait dysfunction. 9. Hyperlipidemia. 10. History of degenerative joint disease. 11. History of anemia. 12. History of skin cancer. 13. History of appendectomy. 14. History of tonsillectomy. 15. History of cataract. 16. Remote history of nicotine dependence. 17. FULL CODE. RECOMMENDATIONS AND DISCUSSION: I recommend to continue the current medications, continue monitoring and symptomatic treatment. Otherwise, continue with empiric antibiotics. Continue with the rest of the medications. Await cytology reports. Also recommend PT, OT evaluation and evaluate for ECF rehab. [facility] and [facility] have also been considered. I had a detailed discussion with the family, multiple daughters at the bedside. The prognosis is guarded. Patient is FULL CODE. Will closely follow with Dr. Solis. Further recommendations to follow.
[2016-06-24 11:37] LABS: Glucose,Whole Blood 152 mg/dL (75-99)
[2016-06-24 16:38] LABS: Glucose,Whole Blood 123 mg/dL (75-99)
--- NOTE | 2016-06-24 16:57 | P.PN ---
Subjective 85-year-old male patient with known history of coronary artery disease, hypertension, hyperlipidemia, remote history of colon cancer who came into the hospital because of worsening shortness of breath and he was found to have a large left-sided pleural effusion. CAT scan of the chest was done and the patient was transferred to [facility] for further evaluation and treatment. A repeat CAT scan of the chest was done here in our hospital and the patient had limited evaluation of the mediastinum and the hilar area. There was suspected enlarged thoracic lymph nodes there were more pronounced at the level of the subcarina and for reference left subcarinal/peribronchial lymph node was measuring 2.8 x 1.6 cm in size and there was a large left infrahilar lymph node measuring 2.1 x 1.8 cm in size. No cardiomegaly or pericardial effusion. There was some vague hypodense lesions scattered throughout the liver and this raises the suspicion for metastatic disease. Patient is seen again today 06/24/2016 in follow-up. He is status post left lung thoracentesis of approximately 850 ML's of hemorrhagic pleural fluid drained by Dr. Solis. Pathology is pending. Presently the patient is sitting up in a chair at the bedside. He is awake and alert in no acute distress. He is maintaining O2 saturations in the 90s on 2 L/m per nasal cannula. Currently afebrile. Hemodynamically stable. He remains on IV diuretics along with IV Solu-Medrol and antibiotics in form of Levaquin. Objective - Vital Signs Vital signs: Vital Signs Temp 96.9 F L 06/24/16 15:32 Pulse 88 06/24/16 16:13 Resp 20 06/24/16 15:32 BP 142/63 06/24/16 15:32 Pulse Ox 94 L 06/24/16 15:32 Intake & Output 06/23/16 06/24/16 06/24/16 18:59 06:59 18:59 Intake Total 500 200 696 Output Total 600 12 Balance -100 188 696 Weight 64 kg 64 kg Intake: IV 80 200 100 Sodium Chloride 0.9% 1, 80 200 100 000 ml @ 20 mls/hr IV . Q24H [facility] Rx#:[id number] Oral 420 596 Output: Urine 600 Stool 12 Other: Voiding Method Diaper Diaper Diaper # Voids 1 1 # Bowel Movements 1 - Exam Head exam was generally normal. There was no scleral icterus or corneal arcus. Mucous membranes were moist.Neck was supple and without jugular venous distension, thyromegaly, or carotid bruits. Carotids were easily palpable bilaterally. There was no adenopathy. Lung sounds are diminished in left lung base otherwise the rest of the lungs are essentially clear.Cardiac exam revealed the PMI to be normally situated and sized. The rhythm was regular and no extrasystoles were noted during several minutes of auscultation. The first and second heart sounds were normal and physiologic splitting of the second heart sound was noted. There were no murmurs, rubs, clicks, or gallops.Abdominal exam revealed normal bowel sounds. The abdomen was soft, non- tender, and without masses, organomegaly, or appreciable enlargement of the abdominal aorta.Examination of the extremities revealed easily palpable radial, femoral and pedal pulses. There was no cyanosis, clubbing or edema. - Labs CBC & Chem 7: 06/24/16 06:05 06/24/16 06:05 Labs: Abnormal Lab Results - Last 24 Hours (Table) 06/22/16 06/22/16 06/23/16 Range/Units 05:58 05:58 20:24 WBC (3.8-10.6) k/uL RBC (4.30-5.90) m/uL Hgb (13.0-17.5) gm/dL Hct (39.0-53.0) % RDW (11.5-15.5) % Plt Count (150-450) k/uL Neutrophils # (Manual) (1.3-7.7) k/uL Nucleated RBCs (0-0) /100 WBC Potassium (3.5-5.1) mmol/L BUN (9-20) mg/dL Glucose (74-99) mg/dL POC Glucose (mg/dL) 176 H (75-99) mg/dL Calcium (8.4-10.2) mg/dL Albumin (PEP) 3.24 L (3.80-4.90) g/dL SASCHA Screen POSITIVE H (NEGATIVE) Free [place] LC, Quant 2.48 H (0.33 - 1.94) mg/dL 06/24/16 06/24/16 06/24/16 Range/Units 05:46 06:05 06:05 WBC 14.6 H (3.8-10.6) k/uL RBC 3.84 L (4.30-5.90) m/uL Hgb 11.4 L (13.0-17.5) gm/dL Hct 35.0 L (39.0-53.0) % RDW 16.9 H (11.5-15.5) % Plt Count 61 L (150-450) k/uL Neutrophils # (Manual) 12.8 H (1.3-7.7) k/uL Nucleated RBCs 1 H (0-0) /100 WBC Potassium 5.6 H (3.5-5.1) mmol/L BUN 47 H (9-20) mg/dL Glucose 107 H (74-99) mg/dL POC Glucose (mg/dL) 138 H (75-99) mg/dL Calcium 10.4 H (8.4-10.2) mg/dL Albumin (PEP) (3.80-4.90) g/dL SASCHA Screen (NEGATIVE) Free [place] LC, Quant (0.33 - 1.94) mg/dL 06/24/16 06/24/16 Range/Units 11:33 16:37 WBC (3.8-10.6) k/uL RBC (4.30-5.90) m/uL Hgb (13.0-17.5) gm/dL Hct (39.0-53.0) % RDW (11.5-15.5) % Plt Count (150-450) k/uL Neutrophils # (Manual) (1.3-7.7) k/uL Nucleated RBCs (0-0) /100 WBC Potassium (3.5-5.1) mmol/L BUN (9-20) mg/dL Glucose (74-99) mg/dL POC Glucose (mg/dL) 152 H 123 H (75-99) mg/dL Calcium (8.4-10.2) mg/dL Albumin (PEP) (3.80-4.90) g/dL SASCHA Screen (NEGATIVE) Free [place] LC, Quant (0.33 - 1.94) mg/dL Assessment and Plan Plan: Impression: 1 bloody left-sided pleural effusion, status post diagnostic and therapeutic thoracentesis with evacuation of 850 mL of fluid without any complications 2 shortness of breath secondary to above, improving 3 remote history of colon cancer 4 mediastinal and hilar lymphadenopathy, rule out malignancy 5 vague liver lesions which raises suspicion for hepatic metastases 6 hyperlipidemia 7 hypertension 8 coronary artery disease Plan: The patient was seen and evaluated by Dr. Solis. The patient continues to improve from the pulmonary standpoint. We're waiting fluid analysis and pathology. There is some suspicion for underlying metastatic carcinoma especially with the liver findings. We will continue to follow make further recommendations based on his clinical status.
[2016-06-24] MEDS: LEVOFLOXACIN 250 MG TAB PO SCH (17:18)
--- NOTE | 2016-06-24 20:07 | PN ---
DATE OF SERVICE: 06/24/2016 This 85-year-old gentleman who was admitted with left-sided hemorrhage and pleural effusion is being closely monitored. The cytology is awaited at this time. No chest pain. No palpitation. No fever. On exam, alert and oriented x2. Pulse 81, blood pressure 148/66, respiration 20, temperature 97.4, pulse ox 94% on 2 L. HEENT: Conjunctivae normal. NECK: No jugular venous distention. CARDIOVASCULAR SYSTEM: S1, S2 muffled. RESPIRATORY SYSTEM: Breath sounds diminished at the bases. Bilateral scattered rhonchi and crackles. ABDOMEN: Soft, nontender. LEGS: No edema. No swelling. NERVOUS SYSTEM: No focal deficit. LABS: WBC 14.3, hemoglobin 11.4. Potassium 5.6. ASSESSMENT: 1. Left-side hemorrhage and pleural effusion with possible pulmonary mass lesion; rule out metastatic pleural effusion and lung cancer; status post thoracocentesis with 850 mL. 2. Retroperitoneal lymphadenopathy and hilar lymphadenopathy; rule out lymphoma or metastatic malignancy. 3. History of colon cancer. 4. History of possible chronic obstructive pulmonary disease. 5. Acute purulent tracheobronchitis. 6. Coronary artery disease history. 7. Hypertension. 8. Gait dysfunction. 9. Hyperlipidemia. 10. History of degenerative joint disease. 11. History of anemia. 12. History of skin cancer. 13. History of appendectomy. 14. History of tonsillectomy. 15. History of cataract. 16. Remote history of nicotine dependence. 17. FULL CODE. RECOMMENDATIONS AND DISCUSSION: I recommend to continue with the current medications, continue with the monitoring, symptomatic treatment. Otherwise, will await the pleural fluid cytology. Dr. Solis's and Dr. Comer's input appreciated. Will continue to monitor. Further recommendations to follow.
[2016-06-24 20:24] LABS: Glucose,Whole Blood 141 mg/dL (75-99)
[2016-06-25] MEDS: methylPREDNISolone SOD SUCCI 40 MG/ML 1 ML VIAL IV SCH ×4 (00:12→23:00)
[2016-06-25] MEDS: PANTOPRAZOLE 40 MG TABLET PO SCH (06:16)
[2016-06-25] MEDS: INSULIN LISPRO (humaLOG) 300 UNIT/3 ML VIAL SQ SCH ×4 (06:20→21:28)
[2016-06-25 06:28] LABS: Glucose,Whole Blood 239 mg/dL (75-99)
[2016-06-25 06:30] LABS: Anisocytosis Slight; Basophils # (A) 0.1 k/uL (0-0.2); Basophils % (A) 0 %; CH 29.2; CHCM 30.7; Eosinophils % (A) 0 %; HCT 33.4 % (39.0-53.0); HDW 3.01; HGB 10.3 gm/dL (13.0-17.5); Hypochromasia Moderate; Luc # (Auto) 0.08; Luc % (Auto) 1; Lymphocytes % (A) 8 %; MCH 29.3 pg (25.0-35.0); MCHC 30.7 g/dL (31.0-37.0); MCV 95.4 fL (80.0-100.0); Mean Platelet Volume 9.9; Monocytes # (A) 0.6 k/uL (0-1.0); Monocytes % (A) 5 %; Neutrophils # (A) 11.2 k/uL (1.3-7.7); Neutrophils % (A) 87 %; RDW 16.4 % (11.5-15.5); WBC (Perox) 14.15
[2016-06-25 06:45] LABS: Anion Gap 12 mmol/L; Blood Urea Nitrogen 50 mg/dL (9-20); Calcium 9.2 mg/dL (8.4-10.2); Carbon Dioxide 22 mmol/L (22-30); Chloride 104 mmol/L (98-107); Glucose 199 mg/dL (74-99); Magnesium 2.3 mg/dL (1.6-2.3); Non-African American GFR(MDRD) >60 (>60 ml/min/1.73 sqM); Potassium 4.5 mmol/L (3.5-5.1); Sodium 138 mmol/L (137-145)
[2016-06-25] MEDS: FUROSEMIDE 10 MG/ML 2 ML VIAL IV SCH (08:58)
[2016-06-25] MEDS: IPRATROPIUM-ALBUTEROL 3 ML NEB INHALATION SCH ×4 (09:25→19:52)
[2016-06-25] MEDS: FOLIC ACID 1 MG TAB PO SCH (09:57)
[2016-06-25] MEDS: ISOSORBIDE MONONITRATE ER 30 MG TAB.ER.24H PO SCH (09:57)
[2016-06-25] MEDS: ATENOLOL 50 MG TAB PO SCH (09:57)
[2016-06-25] MEDS: LISINOPRIL 20 MG TAB PO SCH (09:57)
[2016-06-25] MEDS: PREGABALIN 50 MG CAP PO SCH ×2 (09:57→21:09)
[2016-06-25 11:22] LABS: Glucose,Whole Blood 125 mg/dL (75-99)
[2016-06-25] MEDS: HYDROcodone/APAP 5-325MG 1 EACH TAB PO PRN ×2 (15:07→21:06)
--- NOTE | 2016-06-25 16:14 | P.PN ---
Subjective 85-year-old male patient with known history of coronary artery disease, hypertension, hyperlipidemia, remote history of colon cancer who came into the hospital because of worsening shortness of breath and he was found to have a large left-sided pleural effusion. CAT scan of the chest was done and the patient was transferred to [facility] for further evaluation and treatment. A repeat CAT scan of the chest was done here in our hospital and the patient had limited evaluation of the mediastinum and the hilar area. There was suspected enlarged thoracic lymph nodes there were more pronounced at the level of the subcarina and for reference left subcarinal/peribronchial lymph node was measuring 2.8 x 1.6 cm in size and there was a large left infrahilar lymph node measuring 2.1 x 1.8 cm in size. No cardiomegaly or pericardial effusion. There was some vague hypodense lesions scattered throughout the liver and this raises the suspicion for metastatic disease. I've always broken this patient earlier this morning. I proceeded with a thoracentesis of the left lung and a total of 850 of hemorrhagic pleural effusion was aspirated from the left lung without any major complications. The patient tolerated the procedure well and his pulse ox remained above 90% without any desaturation or hypotension. Postprocedure chest x-ray showed a decrease in the left-sided pleural effusion and there was no evidence of any pneumothorax or complications noted. On 06/25/2016 the patient is being seen in follow-up. He remains quite stable and were still awaiting the results of the pleural effusion that was drained few days back. The patient has no specific complaints. Is resting comfortably in bed. No cough or sputum production chest tightness or wheezing. There is a concern of an underlying malignancy especially the patient has demonstrated some mediastinal lymphadenopathy on the CAT scan of the chest. Objective - Vital Signs Vital signs: Vital Signs Temp 96.9 F L 06/25/16 15:04 Pulse 80 06/25/16 15:04 Resp 20 06/25/16 15:04 BP 132/61 06/25/16 15:04 Pulse Ox 96 06/25/16 15:04 Intake & Output 06/24/16 06/25/16 06/25/16 18:59 06:59 18:59 Intake Total 994 0 478 Balance 994 0 478 Weight 64 kg Intake: IV 100 0 Sodium Chloride 0.9% 1, 100 0 000 ml @ 20 mls/hr IV . Q24H [facility] Rx#:[id number] Oral 760 228 Other: Voiding Method Diaper Diaper Diaper # Voids 2 1 # Bowel Movements 1 - Exam Head exam was generally normal. There was no scleral icterus or corneal arcus. Mucous membranes were moist.Neck was supple and without jugular venous distension, thyromegaly, or carotid bruits. Carotids were easily palpable bilaterally. There was no adenopathy. Lung sounds are diminished in left lung base otherwise the rest of the lungs are essentially clear.Cardiac exam revealed the PMI to be normally situated and sized. The rhythm was regular and no extrasystoles were noted during several minutes of auscultation. The first and second heart sounds were normal and physiologic splitting of the second heart sound was noted. There were no murmurs, rubs, clicks, or gallops.Abdominal exam revealed normal bowel sounds. The abdomen was soft, non- tender, and without masses, organomegaly, or appreciable enlargement of the abdominal aorta.Examination of the extremities revealed easily palpable radial, femoral and pedal pulses. There was no cyanosis, clubbing or edema. - Labs CBC & Chem 7: 06/25/16 05:39 06/25/16 05:39 Labs: Abnormal Lab Results - Last 24 Hours (Table) 06/24/16 06/24/16 06/25/16 Range/Units 16:37 20:22 05:39 WBC 13.0 H (3.8-10.6) k/uL RBC 3.50 L (4.30-5.90) m/uL Hgb 10.3 L (13.0-17.5) gm/dL Hct 33.4 L (39.0-53.0) % MCHC 30.7 L (31.0-37.0) g/dL RDW 16.4 H (11.5-15.5) % Plt Count 87 L (150-450) k/uL Neutrophils # 11.2 H (1.3-7.7) k/uL BUN (9-20) mg/dL Glucose (74-99) mg/dL POC Glucose (mg/dL) 123 H 141 H (75-99) mg/dL 06/25/16 06/25/16 06/25/16 Range/Units 05:39 06:19 11:18 WBC (3.8-10.6) k/uL RBC (4.30-5.90) m/uL Hgb (13.0-17.5) gm/dL Hct (39.0-53.0) % MCHC (31.0-37.0) g/dL RDW (11.5-15.5) % Plt Count (150-450) k/uL Neutrophils # (1.3-7.7) k/uL BUN 50 H (9-20) mg/dL Glucose 199 H (74-99) mg/dL POC Glucose (mg/dL) 239 H 125 H (75-99) mg/dL Assessment and Plan Plan: Assessment 1 bloody left-sided pleural effusion, status post diagnostic and therapeutic thoracentesis with evacuation of 850 mL of fluid without any complications. Still awaiting the pleural fluid cytology. Meanwhile the patient's this process is stable and the patient has no significant complaints. There is concern for malignancy especially with the presence of mediastinal lymphadenopathy. 2 shortness of breath secondary to above, improving 3 remote history of colon cancer 4 mediastinal and hilar lymphadenopathy, rule out malignancy 5 vague liver lesions which raises suspicion for hepatic metastases 6 hyperlipidemia 7 hypertension 8 coronary artery disease Plan Continue the supportive care. awaiting fluid analysis. Ablate the patient the hallway. we'll continue to follow.
[2016-06-25 16:41] LABS: Glucose,Whole Blood 153 mg/dL (75-99)
[2016-06-25] MEDS: LEVOFLOXACIN 250 MG TAB PO SCH (17:45)
[2016-06-25 21:19] LABS: Glucose,Whole Blood 188 mg/dL (75-99)
--- NOTE | 2016-06-25 22:23 | PN ---
DATE OF SERVICE: 06/25/2016 This 85-year-old gentleman who was admitted with significant left-sided hemorrhage and pleural effusions also had thoracocentesis. The cytology report is awaited at this time. The patient also had multiple lymphadenopathy also. No chest pain. No palpitation. No fever. On exam, alert and oriented x3. Pulse 80, blood pressure 130/61, respiration 20, temperature 96.9, pulse ox 96% on 2 L. HEENT: Conjunctivae normal. NECK: No jugular venous distention. CARDIOVASCULAR SYSTEM: S1, S2 muffled. RESPIRATORY SYSTEM: Breath sounds diminished at the bases. A few scattered rhonchi and crackles, present on admission, more on the left side. ABDOMEN: Soft, non-tender. NERVOUS SYSTEM: No focal deficit. LABS: WBC is 13, hemoglobin 10.3. Accu-Cheks are noted. ASSESSMENT: 1. Left-sided hemorrhage and pleural effusion with possible underlying pulmonary mass lesion. Rule out metastatic pleural effusion and lung cancer, status post thoracocentesis of 850 mL. 2. Retroperitoneal lymphadenopathy and hilar lymphadenopathy. Rule out lymphoma and metastatic malignancy. 3. History of colon cancer. 4. History of chronic obstructive pulmonary disease, possibly. 5. Acute purulent tracheobronchitis. 6. History of coronary artery disease. 7. Hypertension, essential. 8. Gait dysfunction. 9. Hyperlipidemia. 10. History of degenerative joint disease. 11. History of anemia. 12. History of skin cancer. 13. History of appendectomy. 14. History of tonsillectomy. 15. History of cataracts. 16. Remote history of nicotine dependence. 17. FULL CODE. RECOMMENDATIONS AND DISCUSSION: I recommend to continue with the current medications, continue with the monitoring, symptomatic treatment. Await the biopsy report. PT and OT evaluation. Guarded prognosis because of multiple complex medical issues. Further recommendations to follow.
[2016-06-25] MEDS: traMADol 50 MG TAB PO PRN (22:57)
[2016-06-26] MEDS: HYDROcodone/APAP 5-325MG 1 EACH TAB PO PRN ×2 (04:58→21:36)
[2016-06-26 07:08] LABS: Glucose,Whole Blood 128 mg/dL (75-99)
[2016-06-26] MEDS: INSULIN LISPRO (humaLOG) 300 UNIT/3 ML VIAL SQ SCH ×4 (08:43→20:14)
[2016-06-26] MEDS: methylPREDNISolone SOD SUCCI 40 MG/ML 1 ML VIAL IV SCH ×2 (08:44→16:52)
[2016-06-26] MEDS: PANTOPRAZOLE 40 MG TABLET PO SCH (08:44)
[2016-06-26] MEDS: ATENOLOL 50 MG TAB PO SCH (08:45)
[2016-06-26] MEDS: FUROSEMIDE 10 MG/ML 2 ML VIAL IV SCH (08:45)
[2016-06-26] MEDS: ISOSORBIDE MONONITRATE ER 30 MG TAB.ER.24H PO SCH (08:45)
[2016-06-26] MEDS: FOLIC ACID 1 MG TAB PO SCH (08:45)
[2016-06-26] MEDS: LISINOPRIL 20 MG TAB PO SCH (08:46)
[2016-06-26] MEDS: PREGABALIN 50 MG CAP PO SCH ×2 (08:46→21:36)
[2016-06-26] MEDS: HYDROmorphone 1 MG/ML 1 ML SYRINGE IVP PRN ×2 (08:57→15:27)
[2016-06-26] MEDS: IPRATROPIUM-ALBUTEROL 3 ML NEB INHALATION SCH ×4 (09:37→20:11)
[2016-06-26 10:35] LABS: Anion Gap 12 mmol/L; Blood Urea Nitrogen 57 mg/dL (9-20); Calcium 9.2 mg/dL (8.4-10.2); Carbon Dioxide 23 mmol/L (22-30); Chloride 104 mmol/L (98-107); Glucose 136 mg/dL (74-99); Non-African American GFR(MDRD) >60 (>60 ml/min/1.73 sqM); Potassium 4.8 mmol/L (3.5-5.1); Sodium 139 mmol/L (137-145)
--- NOTE | 2016-06-26 11:17 | DS ---
PROGRESS NOTE/DISCHARGE SUMMARY: DATE OF ADMISSION: 06/20/2016 DATE OF DISCHARGE: Patient is an 85-year-old came in with hypoxic respiratory failure secondary to left-sided pleural effusion. Patient underwent thoracocentesis and obtained 50 mL of fluid. Pathology is still pending and patient is hemodynamically stable and clinically doing well and will be discharged to subacute rehabilitation today. I will discontinue Lasix because I believe patient is in acute renal failure, prerenal azotemia because of that with highly elevated BUN of 57, creatinine of 1.07. For his body mass, normal creatinine would be around 0.5 and I do not believe patient will need antibiotics at this point of time. Patient has no evidence of pneumonia. If left-sided pleural effusion comes back as negative for any malignancy, then probably he will need a biopsy of retroperitoneal lymph nodes and there are some suspicious lesions in the liver as well. Metastatic malignancy versus lymphoma need to be ruled out and patient will need to follow with Dr. Saurav Comer in a about a week for further evaluation, management and to discuss regarding the results of pleural fluid biopsy. REVIEW OF SYSTEMS: CARDIOVASCULAR: No chest pain, no orthopnea, no PND, no palpitations. PULMONARY: Denied any shortness of breath. No cough or hemoptysis. GASTROINTESTINAL: No diarrhea, nausea or vomiting. No abdominal pain. Normoactive bowel sounds. NEUROLOGIC: No headaches, no weakness, no numbness. Medications were reviewed. PHYSICAL EXAMINATION: VITAL SIGNS: Temperature 97.5, pulse of 84, respiratory rate of 20, blood pressure is 144/58, saturating at 94% on 2 L of O2 by nasal cannula. GENERAL: Patient is an elderly gentleman, appears to have generalized weakness and tiredness. HEENT: Pupils are round and equally reacting to light. EOMI. No scleral icterus. No conjunctival pallor. Normocephalic, atraumatic. No pharyngeal erythema. No thyromegaly. CARDIOVASCULAR: S1 and S2 present. No murmurs, rubs, or gallops. PULMONARY: Chest is clear to auscultation, no wheezing or crackles. ABDOMEN: Soft, nontender, nondistended, normoactive bowel sounds. No palpable organomegaly. MUSCULOSKELETAL: No joint swelling or deformity. EXTREMITIES: No cyanosis, clubbing, or pedal edema. NEUROLOGICAL: Gross neurological examination did not reveal any focal deficits. SKIN: No rashes. LABORATORY DATA: BUN is elevated to 57. ASSESSMENT AND PLAN: 1. Left-sided pleural effusion, malignancy need to be ruled out with retroperitoneal lymphadenopathy. 2. History of colon cancer. 3. Coronary artery disease. 4. Hypertension. 5. Hyperlipidemia. Patient will be discharged today. Please refer to my depart summary for further details of medication reconciliation. Activity as per the facility. Follow with Dr. Bedolla or Dr. William in subacute rehab. Follow with Dr. Comer in about a week. Spent greater than 35 minutes in total discharge process. DISCHARGE DIET: Cardiac.
--- NOTE | 2016-06-26 11:35 | XR ---
EXAMINATION TYPE: XR chest 1V DATE OF EXAM: 06/26/2016 11:29 AM CLINICAL HISTORY: Status post left-sided thoracentesis TECHNIQUE: Single AP portable upright view of the chest is obtained. COMPARISON: Chest x-ray from [address] 4 days ago. FINDINGS: There is no evidence of sizable pneumothorax after left-sided thoracentesis. There is pers istent small left pleural effusion with left basilar masslike consolidation and/or atelectasis. Right lung is clear. Underlying emphysematous change is present cardiac silhouette size is stable and with in normal limits with atherosclerotic and slightly ectatic thoracic aorta identified. Osseous structu res are demineralized. IMPRESSION: No evidence of sizable pneumothorax after left-sided thoracentesis. Persistent small left pleural effusion and suspicious masslike left basilar consolidation with thoracic adenopathy noted o n recent CT. Neoplasm is suspected. Correlation with findings from thoracentesis advised.
[2016-06-26] MEDS: LEVOFLOXACIN 250 MG TAB PO SCH (16:52)
--- NOTE | 2016-06-26 16:59 | P.PN ---
Subjective 85-year-old male patient with known history of coronary artery disease, hypertension, hyperlipidemia, remote history of colon cancer who came into the hospital because of worsening shortness of breath and he was found to have a large left-sided pleural effusion. CAT scan of the chest was done and the patient was transferred to [facility] for further evaluation and treatment. A repeat CAT scan of the chest was done here in our hospital and the patient had limited evaluation of the mediastinum and the hilar area. There was suspected enlarged thoracic lymph nodes there were more pronounced at the level of the subcarina and for reference left subcarinal/peribronchial lymph node was measuring 2.8 x 1.6 cm in size and there was a large left infrahilar lymph node measuring 2.1 x 1.8 cm in size. No cardiomegaly or pericardial effusion. There was some vague hypodense lesions scattered throughout the liver and this raises the suspicion for metastatic disease. I've always broken this patient earlier this morning. I proceeded with a thoracentesis of the left lung and a total of 850 of hemorrhagic pleural effusion was aspirated from the left lung without any major complications. The patient tolerated the procedure well and his pulse ox remained above 90% without any desaturation or hypotension. Postprocedure chest x-ray showed a decrease in the left-sided pleural effusion and there was no evidence of any pneumothorax or complications noted. On 06/25/2016 the patient is being seen in follow-up. He remains quite stable and were still awaiting the results of the pleural effusion that was drained few days back. The patient has no specific complaints. Is resting comfortably in bed. No cough or sputum production chest tightness or wheezing. There is a concern of an underlying malignancy especially the patient has demonstrated some mediastinal lymphadenopathy on the CAT scan of the chest. On 06/26/2016, I'm seeing this patient in follow-up. The patient is resting comfortably in bed. Chest x-ray today shows a small left sided pleural effusion present. The fluid cytology is out and the patient has been found to have some rather atypical cells yet the cellularity was minimal and malignancy could not be diagnosed. The patient is has no specific complaints. Objective - Vital Signs Vital signs: Vital Signs Temp 97.5 F L 06/26/16 15:35 Pulse 76 06/26/16 16:32 Resp 18 06/26/16 16:00 BP 132/67 06/26/16 15:35 Pulse Ox 92 L 06/26/16 15:35 Intake & Output 06/25/16 06/26/16 06/26/16 18:59 06:59 18:59 Intake Total 478 200 350 Output Total 8 316 Balance 478 192 34 Weight 60.781 kg 60.781 kg Intake: Oral 478 200 350 Output: Urine 300 Stool 8 16 Other: Voiding Method Diaper Diaper Diaper # Voids 1 2 2 # Bowel Movements 1 - Exam Head exam was generally normal. There was no scleral icterus or corneal arcus. Mucous membranes were moist.Neck was supple and without jugular venous distension, thyromegaly, or carotid bruits. Carotids were easily palpable bilaterally. There was no adenopathy. Lung sounds are diminished in left lung base otherwise the rest of the lungs are essentially clear.Cardiac exam revealed the PMI to be normally situated and sized. The rhythm was regular and no extrasystoles were noted during several minutes of auscultation. The first and second heart sounds were normal and physiologic splitting of the second heart sound was noted. There were no murmurs, rubs, clicks, or gallops.Abdominal exam revealed normal bowel sounds. The abdomen was soft, non- tender, and without masses, organomegaly, or appreciable enlargement of the abdominal aorta.Examination of the extremities revealed easily palpable radial, femoral and pedal pulses. There was no cyanosis, clubbing or edema. - Labs CBC & Chem 7: 06/25/16 05:39 06/26/16 10:02 Labs: Abnormal Lab Results - Last 24 Hours (Table) 06/25/16 06/26/16 06/26/16 Range/Units 21:16 07:07 10:02 BUN 57 H (9-20) mg/dL Glucose 136 H (74-99) mg/dL POC Glucose (mg/dL) 188 H 128 H (75-99) mg/dL Assessment and Plan Plan: Assessment 1 bloody left-sided pleural effusion, status post diagnostic and therapeutic thoracentesis with evacuation of 850 mL of fluid without any complications. Still awaiting the pleural fluid cytology. Meanwhile the patient's this process is stable and the patient has no significant complaints. There is concern for malignancy especially with the presence of mediastinal lymphadenopathy. On 06/26/2016, the pleural fluid was labeled as negative for malignancy. Nevertheless my suspicion for malignancy is very high in this patient. I think we need to monitor the pleural effusion and watch for any recurrence. Recurrent accumulation of fluid within the left chest was supported diagnosis of malignancy and at that point we I may either be analyzed the pleural fluid and/or consider thoracoscopic intervention/biopsy for tissue diagnosis. 2 shortness of breath secondary to above, improving 3 remote history of colon cancer 4 mediastinal and hilar lymphadenopathy, rule out malignancy 5 vague liver lesions which raises suspicion for hepatic metastases 6 hyperlipidemia 7 hypertension 8 coronary artery disease Plan See above. The pleural fluid is nondiagnostic for malignancy. The suspicion for cancer is still present. We'll continue to follow.
[2016-06-26 17:16] LABS: Glucose,Whole Blood 138 mg/dL (75-99)
[2016-06-26] MEDS: ONDANSETRON 4 MG/2 ML VIAL IVP PRN (20:14)
[2016-06-26 20:16] LABS: Glucose,Whole Blood 146 mg/dL (75-99)
[2016-06-27] MEDS: methylPREDNISolone SOD SUCCI 40 MG/ML 1 ML VIAL IV SCH ×4 (00:02→23:49)
[2016-06-27] MEDS: HYDROmorphone 1 MG/ML 1 ML SYRINGE IVP PRN (04:22)
[2016-06-27] MEDS: IPRATROPIUM-ALBUTEROL 3 ML NEB INHALATION SCH ×4 (07:16→20:59)
[2016-06-27 07:31] LABS: Glucose,Whole Blood 128 mg/dL (75-99)
[2016-06-27] MEDS: INSULIN LISPRO (humaLOG) 300 UNIT/3 ML VIAL SQ SCH ×4 (08:20→21:29)
[2016-06-27] MEDS: PANTOPRAZOLE 40 MG TABLET PO SCH (08:22)
[2016-06-27] MEDS: FUROSEMIDE 10 MG/ML 2 ML VIAL IV SCH (08:22)
[2016-06-27] MEDS: FOLIC ACID 1 MG TAB PO SCH (08:24)
[2016-06-27] MEDS: ATENOLOL 50 MG TAB PO SCH (08:24)
[2016-06-27] MEDS: ISOSORBIDE MONONITRATE ER 30 MG TAB.ER.24H PO SCH (08:24)
[2016-06-27] MEDS: LISINOPRIL 20 MG TAB PO SCH (08:25)
[2016-06-27] MEDS: PREGABALIN 50 MG CAP PO SCH ×2 (08:25→21:29)
[2016-06-27] MEDS: ONDANSETRON 4 MG/2 ML VIAL IVP PRN (08:27)
[2016-06-27 11:22] LABS: Glucose,Whole Blood 141 mg/dL (75-99)
--- NOTE | 2016-06-27 13:50 | PN ---
The patient is an 85-year-old admitted with respiratory failure, left-sided pleural effusion. Patient underwent thoracentesis and removal of around 850 mL. Fluid analysis did show some atypical cells, but no clear-cut malignancy was evident. Please refer to the pathology report. Metastatic disease cannot be completely ruled out. Further evaluation as per Dr. Comer, which can be done as an outpatient, although patient's oxygen requirements have gone up and patient was nauseated and throwing up. I am not sure why patient's oxygen requirements have went up. We may need to repeat chest x-ray. Will discuss with Dr. Solis. Patient may not be able to be discharged today because of that reason. I will go ahead and discontinue Lasix because of worsening BUN and creatinine and intravascular volume depletion and I believe there is not much benefit in his situation because the patient's effusion is most probably malignant effusion ( ) pathology report. REVIEW OF SYSTEMS: CARDIOVASCULAR: No chest pain, no orthopnea, no PND, no palpitations. PULMONARY: Denied any shortness of breath. No cough or hemoptysis. GASTROINTESTINAL: As described in HPI. NEUROLOGIC: No headaches, no weakness, no numbness. Medications were reviewed. PHYSICAL EXAMINATION: VITAL SIGNS: Temperature 97.1, pulse of 76, respiratory rate of 20, blood pressure is 116/67, saturating at 90% on 4 L of O2 by nasal cannula. GENERAL: The patient is alert and oriented x3, not in any acute distress. Well developed, well nourished. HEENT: Pupils are round and equally reacting to light. EOMI. No scleral icterus. No conjunctival pallor. Normocephalic, atraumatic. No pharyngeal erythema. No thyromegaly. CARDIOVASCULAR: S1 and S2 present. No murmurs, rubs, or gallops. LUNG EXAMINATION: Patient does have some bibasilar crackles. No wheezing was appreciated. Fairly good air entry into bilateral lung hooker. Patient may have a little bit of atelectasis. ABDOMEN: Soft, nontender, nondistended, normoactive bowel sounds. No palpable organomegaly. MUSCULOSKELETAL: No joint swelling or deformity. EXTREMITIES: No cyanosis, clubbing, or pedal edema. NEUROLOGICAL: Gross neurological examination did not reveal any focal deficits. SKIN: No rashes. LABORATORY DATA: As mentioned above. ASSESSMENT AND PLAN: 1. Left-sided pleural effusion, malignancy still cannot be ruled out and patient has retroperitoneal lymphadenopathy with some suspicious lesions on the liver. Further evaluation as per Dr. Comer. 2. History of colon cancer. 3. Coronary artery disease. 4. Acute hypoxic respiratory failure secondary to left-sided pleural effusion, coronary artery disease. 5. Hypertension. 6. Hyperlipidemia. PLAN: Continue with present medications. Try to taper down oxygen. We still have to find him rehab that will accept him because of his insurance issues.
[2016-06-27] MEDS: LEVOFLOXACIN 250 MG TAB PO SCH (17:13)
[2016-06-27 17:25] LABS: Glucose,Whole Blood 157 mg/dL (75-99)
--- NOTE | 2016-06-27 17:28 | P.PN ---
Subjective Principal diagnosis: Pleural effusion, lymphadenopathy The patient had some increased difficulty in breathing yesterday, which has improved. He is still quite weak and has been having some abdominal distention. No fever, chills, nausea vomiting, or chest pain Objective - Vital Signs Vital signs: Vital Signs Temp 96.2 F L 06/27/16 15:37 Pulse 88 06/27/16 16:44 Resp 20 06/27/16 15:37 BP 135/63 06/27/16 15:37 Pulse Ox 90 L 06/27/16 15:37 Intake & Output 06/26/16 06/27/16 06/27/16 18:59 06:59 18:59 Intake Total 350 594 Output Total 316 262 Balance 34 594 -262 Weight 60.781 kg 62.09 kg 62.09 kg Intake: Oral 350 594 Output: Urine 300 250 Stool 16 12 Other: Voiding Method Diaper Diaper Diaper # Voids 2 1 1 - Constitutional General appearance: Present: no acute distress - EENT Eyes: Present: EOMI, PERRLA ENT: Present: hearing grossly normal, normal oropharynx - Respiratory Respiratory: left: diminished - Cardiovascular Rhythm: regular Heart sounds: normal: S1, S2 - Gastrointestinal General gastrointestinal: Present: distended, normal bowel sounds, soft - Integumentary Integumentary: Present: normal - Neurologic Neurologic: Present: CNII-XII intact - Musculoskeletal Musculoskeletal: Present: generalized weakness - Labs CBC & Chem 7: 06/25/16 05:39 06/26/16 10:02 Labs: Abnormal Lab Results - Last 24 Hours (Table) 06/26/16 06/26/16 06/27/16 Range/Units 17:11 20:13 07:27 POC Glucose (mg/dL) 138 H 146 H 128 H (75-99) mg/dL 06/27/16 Range/Units 11:20 POC Glucose (mg/dL) 141 H (75-99) mg/dL Assessment and Plan (1) Pleural effusion Narrative/Plan: The patient's cytology on the pleural fluid came back positive for atypical cells. However this was not diagnostic for malignancy. So far he doesn't appear to have had significant recommendation. Status: Acute (2) History of colon cancer Status: Acute (3) Bicytopenia Narrative/Plan: Hemoglobin and platelets are stable in a safe range. Pancytopenia workup was negative. Ferritin level was markedly elevated, indicating of a hypoproliferative/ inflammatory state. Given his current clinical picture, this could indicate mild MDS , likely with superimposed anemia of inflammation Status: Acute (4) Lymphadenopathy Narrative/Plan: the patient does have lymphadenopathy in the mediastinum, as well as in the upper abdomen. The case was again discussed with the pulmonary service. Despite the pleural fluid being negative, that is high degree of suspicion for malignancy. I therefore met with the patient and his family and had a long discussion with them. 4 diagnoses the patient will need an additional procedure. The options include repeating thoracentesis as and when pleural fluid accumulates. Other possibility would be to do a bronchoscopy, order for him to a tertiary center for an EUS to target the abdominal nodes. Per my discussion primary medicine, there is a significant risk of the bronchoscopy also being nondiagnostic, given the size and location of the lymph nodes. In my opinion, a weight and watch approach with repeat thoracentesis is not unreasonable, as the patient currently is very weak and would not be a candidate for any aggressive active treatment for metastatic malignancy anyway. It was discussed the family, that assuming that malignancy was confirmed, most likely the patient would have stage IV disease. All the questions were answered to the best of my ability. At this time, they have decided not to pursue another diagnostic procedure immediately. They' re in agreement that the patient should go for subacute rehab first. If his performance status improves, then they will subsequently pursue additional procedures. If the pleural fluid does reaccumulates had to that happening, then he will obviously need a repeat thoracentesis, which can be diagnostic. Status: Acute Plan: On the patient does have some abdominal distention but not definite ascites by exam. We will monitor, and order an ultrasound there is progression
[2016-06-27 20:29] LABS: Glucose,Whole Blood 146 mg/dL (75-99)
[2016-06-28] MEDS: HYDROmorphone 1 MG/ML 1 ML SYRINGE IVP PRN (02:16)
[2016-06-28 07:04] LABS: Glucose,Whole Blood 124 mg/dL (75-99)
[2016-06-28] MEDS: PANTOPRAZOLE 40 MG TABLET PO SCH (08:05)
[2016-06-28] MEDS: INSULIN LISPRO (humaLOG) 300 UNIT/3 ML VIAL SQ SCH ×4 (08:05→21:10)
[2016-06-28] MEDS: PREGABALIN 50 MG CAP PO SCH ×2 (08:06→21:10)
[2016-06-28] MEDS: FOLIC ACID 1 MG TAB PO SCH (08:07)
[2016-06-28] MEDS: ATENOLOL 50 MG TAB PO SCH (08:07)
[2016-06-28] MEDS: METHOTREXATE SODIUM 2.5 MG TAB PO SCH (08:07)
[2016-06-28] MEDS: LISINOPRIL 20 MG TAB PO SCH (08:07)
[2016-06-28] MEDS: ISOSORBIDE MONONITRATE ER 30 MG TAB.ER.24H PO SCH (08:07)
[2016-06-28] MEDS: methylPREDNISolone SOD SUCCI 40 MG/ML 1 ML VIAL IV SCH ×3 (08:07→23:12)
[2016-06-28] MEDS: HYDROcodone/APAP 5-325MG 1 EACH TAB PO PRN (08:53)
[2016-06-28] MEDS ORDERED: POLYETHYLENE GLYCOL 3350 17 GM POWD.PACK PO PRN (09:57)
[2016-06-28] MEDS: DOCUSATE 100 MG CAP PO SCH ×2 (10:33→21:10)
--- NOTE | 2016-06-28 10:42 | PN ---
The patient is an 85-year-old admitted with respiratory failure secondary to obstructive pleural effusion. Patient underwent thoracocentesis, which showed some atypical cells without any clear-cut malignancy, although which cannot be ruled out and patient most probably has some unknown malignancy, if indicated needs to be evaluated as an outpatient. Patient is awaiting disposition to subacute rehabilitation. REVIEW OF SYSTEMS: CARDIOVASCULAR: No chest pain, no orthopnea, no PND, no palpitations. PULMONARY: Denied any shortness of breath. No cough or hemoptysis. GASTROINTESTINAL: Patient's last bowel movement was about 3 days ago. NEUROLOGIC: No headaches, no weakness, no numbness. Medications were reviewed. PHYSICAL EXAMINATION: VITAL SIGNS: Temperature 97.6, pulse of 93, respiratory rate of 16, blood pressure is 149/63, saturating at 91% on 3 L of O2 by nasal cannula. GENERAL: Patient is an elderly gentleman, appears to have generalized weakness and tiredness. HEENT: Pupils are round and equally reacting to light. EOMI. No scleral icterus. No conjunctival pallor. Normocephalic, atraumatic. No pharyngeal erythema. No thyromegaly. CARDIOVASCULAR: S1 and S2 present. No murmurs, rubs, or gallops. PULMONARY: Chest is clear to auscultation, no wheezing or crackles. ABDOMEN: Soft, nontender, nondistended, normoactive bowel sounds. No palpable organomegaly. MUSCULOSKELETAL: No joint swelling or deformity. EXTREMITIES: No cyanosis, clubbing, or pedal edema. NEUROLOGICAL: Gross neurological examination did not reveal any focal deficits. SKIN: No rashes. LABORATORY DATA: None available from today. ASSESSMENT AND PLAN: 1. Left-sided pleural effusion, malignancy still cannot be ruled out and patient has retroperitoneal lymphadenopathy with some suspicious lesions on the liver. Further evaluation as per Dr. Comer. 2. History of colon cancer. 3. Coronary artery disease. 4. Acute hypoxic respiratory failure secondary to left-sided pleural effusion, coronary artery disease. 5. Hypertension. 6. Hyperlipidemia. PLAN: Continue with steroid inhalational treatments. Continue with oxygen support, taper down as much as possible and disposition to rehabilitation on Thursday. Patient will be given medications for constipation. MTDD
[2016-06-28] MEDS: IPRATROPIUM-ALBUTEROL 3 ML NEB INHALATION SCH ×4 (11:04→20:58)
[2016-06-28 11:55] LABS: Glucose,Whole Blood 129 mg/dL (75-99)
[2016-06-28] MEDS: traMADol 50 MG TAB PO PRN (12:40)
[2016-06-28 17:05] LABS: Glucose,Whole Blood 129 mg/dL (75-99)
[2016-06-28] MEDS: LEVOFLOXACIN 250 MG TAB PO SCH (17:45)
[2016-06-28 20:34] LABS: Glucose,Whole Blood 165 mg/dL (75-99)
[2016-06-29] MEDS: ATENOLOL 50 MG TAB PO SCH (07:36)
[2016-06-29] MEDS: DOCUSATE 100 MG CAP PO SCH ×2 (07:36→21:21)
[2016-06-29] MEDS: PANTOPRAZOLE 40 MG TABLET PO SCH (07:36)
[2016-06-29] MEDS: methylPREDNISolone SOD SUCCI 40 MG/ML 1 ML VIAL IV SCH (07:36)
[2016-06-29] MEDS: LISINOPRIL 20 MG TAB PO SCH (07:37)
[2016-06-29] MEDS: PREGABALIN 50 MG CAP PO SCH ×2 (07:37→21:21)
[2016-06-29] MEDS: FOLIC ACID 1 MG TAB PO SCH (07:37)
[2016-06-29] MEDS: ISOSORBIDE MONONITRATE ER 30 MG TAB.ER.24H PO SCH (07:37)
[2016-06-29 07:43] LABS: Glucose,Whole Blood 136 mg/dL (75-99)
[2016-06-29 07:57] LABS: Potassium 5.2 mmol/L (3.5-5.1)
[2016-06-29 07:59] LABS: Anisocytosis Slight; CH 29.6; CHCM 32.2; HCT 30.5 % (39.0-53.0); HDW 3.08; HGB 9.8 gm/dL (13.0-17.5); MCH 29.5 pg (25.0-35.0); MCV 92.4 fL (80.0-100.0); Mean Platelet Volume 7.4; RBC 3.31 m/uL (4.30-5.90); RDW 17.8 % (11.5-15.5); WBC 12.2 k/uL (3.8-10.6)
[2016-06-29] MEDS: INSULIN LISPRO (humaLOG) 300 UNIT/3 ML VIAL SQ SCH (07:59)
[2016-06-29] MEDS: IPRATROPIUM-ALBUTEROL 3 ML NEB INHALATION SCH ×4 (09:14→19:02)
[2016-06-29] MEDS: SODIUM CHLORIDE 0.9% 1,000 ML IV SCH ×2 (10:29→21:22)
--- NOTE | 2016-06-29 11:09 | PN ---
85-year-old admitted with respiratory failure secondary to right-sided pleural effusion and patient underwent thoracentesis. Patient etiology of right-sided pleural effusion is not clear and patient was treated for pneumonia as well as there was high suspicion for malignancy, although the pleural fluid cells are not diagnostic for any cancer at this time, although suspicion still remains high and further work-up as an outpatient and as per Dr. Comer. Patient is feeling tired today and patient has worsening renal function with elevated potassium of 5.2, because of which Lisinopril will be discontinued and patient has been prerenal azotemia due to intravascular volume depletion. Patient will be started on IV normal saline at 100 mL per hour. Methotrexate will be discontinued as methotrexate is toxic with this renal function and antibiotics will be discontinued as well as patient did receive enough antibiotics and there is no clear-cut evidence of pneumonia either. REVIEW OF SYSTEMS: GENERAL: As described in HPI. CARDIOVASCULAR: No chest pain, no orthopnea, no PND, no palpitations. PULMONARY: Denied any shortness of breath. No cough or hemoptysis. GASTROINTESTINAL: No diarrhea, nausea or vomiting. No abdominal pain. Normoactive bowel sounds. NEUROLOGIC: No headaches, no weakness, no numbness. Medications were reviewed and medication changes as mentioned in the interval history. PHYSICAL EXAMINATION: VITAL SIGNS: Temperature 98.0, pulse of 81, respiratory rate of 20, blood pressure is 112/58, saturating at 94%. GENERAL: Patient is alert and oriented x3 but patient is excessively tired, malaise. HEENT: Pupils are round and equally reacting to light. EOMI. No scleral icterus. No conjunctival pallor. Normocephalic, atraumatic. No pharyngeal erythema. No thyromegaly. CARDIOVASCULAR: S1 and S2 present. No murmurs, rubs, or gallops. PULMONARY: Chest is clear to auscultation, no wheezing or crackles. ABDOMEN: Soft, nontender, nondistended, normoactive bowel sounds. No palpable organomegaly. MUSCULOSKELETAL: No joint swelling or deformity. EXTREMITIES: No cyanosis, clubbing, or pedal edema. NEUROLOGICAL: Gross neurological examination did not reveal any focal deficits. SKIN: No rashes. LABORATORY DATA: CBC, CMP are abnormal for elevated WBC count of 12,200, hemoglobin of 9.8 and potassium of 5.20, sodium of 137, BUN of 112, creatinine of 1.65, leukocytosis is due to systemic steroids. ASSESSMENT AND PLAN: 1. Left sided pleural effusion. Patient is status post thoracocentesis and patient does have retroperitoneal lymphadenopathy as well and regarding etiology of left-sided pleural effusion, please refer to my interval history. 2. History of colon cancer. 3. Acute renal failure with prerenal azotemia, secondary to severe intravascular volume depletion. Patient will be started on IV fluids and patient is receiving Lasix until a few days ago. 4. Hyperkalemia secondary to Lisinopril and renal failure. Lisinopril will be discontinued and patient will be started on IV fluids as mentioned above. 5. Acute hypoxic respiratory failure, which improved secondary to left sided pleural effusion. 6. Generalized deconditioning. 7. Hypertension. 8. Hyperlipidemia.
[2016-06-29 11:38] LABS: Glucose,Whole Blood 111 mg/dL (75-99)
--- NOTE | 2016-06-29 21:07 | P.PN ---
Subjective The pt pt denies any change in his breathing. He also denies any subjective abdominal discomfort. Objective - Vital Signs Vital signs: Vital Signs Temp 98.3 F 06/29/16 15:00 Pulse 80 06/29/16 19:13 Resp 20 06/29/16 15:00 BP 107/54 06/29/16 15:00 Pulse Ox 91 L 06/29/16 15:00 Intake & Output 06/29/16 06/29/16 06/30/16 06:59 18:59 06:59 Intake Total 360 Output Total 350 400 Balance 10 -400 Weight 61.5 kg Intake: Oral 360 Output: Urine 350 400 Other: Voiding Method Urinal Urinal Diaper Diaper - Constitutional General appearance: Present: no acute distress - EENT Eyes: Present: EOMI, PERRLA ENT: Present: hearing grossly normal, normal oropharynx - Respiratory Respiratory: bilateral: CTA - Cardiovascular Rhythm: regular Heart sounds: normal: S1, S2 - Gastrointestinal General gastrointestinal: Present: distended (firmer compared to prior exam), soft - Labs CBC & Chem 7: 06/29/16 07:17 06/29/16 07:17 Labs: Abnormal Lab Results - Last 24 Hours (Table) 06/29/16 06/29/16 06/29/16 Range/Units 07:17 07:17 07:36 WBC 12.2 H (3.8-10.6) k/uL RBC 3.31 L (4.30-5.90) m/uL Hgb 9.8 L (13.0-17.5) gm/dL Hct 30.5 L (39.0-53.0) % RDW 17.8 H (11.5-15.5) % Plt Count 58 L (150-450) k/uL Potassium 5.2 H (3.5-5.1) mmol/L BUN 112 H* (9-20) mg/dL Creatinine 1.65 H (0.66-1.25) mg/dL Glucose 117 H (74-99) mg/dL POC Glucose (mg/dL) 136 H (75-99) mg/dL 06/29/16 Range/Units 11:36 WBC (3.8-10.6) k/uL RBC (4.30-5.90) m/uL Hgb (13.0-17.5) gm/dL Hct (39.0-53.0) % RDW (11.5-15.5) % Plt Count (150-450) k/uL Potassium (3.5-5.1) mmol/L BUN (9-20) mg/dL Creatinine (0.66-1.25) mg/dL Glucose (74-99) mg/dL POC Glucose (mg/dL) 111 H (75-99) mg/dL Assessment and Plan (1) Pleural effusion Narrative/Plan: Clinically there is no reaccumuatio. CXR will be repeated prior to discharge Status: Acute (2) History of colon cancer Status: Acute (3) Bicytopenia Status: Acute (4) Lymphadenopathy Status: Acute Plan: O/E there may be developing ascites. I will check an US and order paracentesis if indicated. In that case cytology can also be performed
[2016-06-30] MEDS: SODIUM CHLORIDE 0.9% 1,000 ML IV SCH ×2 (05:34→16:38)
[2016-06-30] MEDS: IPRATROPIUM-ALBUTEROL 3 ML NEB INHALATION SCH ×4 (07:05→20:09)
--- NOTE | 2016-06-30 07:08 | XR ---
EXAMINATION TYPE: XR chest 2V DATE OF EXAM: 06/29/2016 10:17 PM COMPARISON: 06/26/2016 TECHNIQUE: PA and lateral views submitted. HISTORY: Follow-up pleural effusion FINDINGS: Stable left-sided consolidation and pleural effusion. No sizable pneumothorax. Right lung clear. Nodu le overlying the right lung most typical nipple shadow. Heart size stable. IMPRESSION: 1. Stable left-sided consolidation and pleural effusion follow-up to resolution to exclude underlying neoplasm.
--- NOTE | 2016-06-30 07:30 | XR ---
EXAMINATION TYPE: XR chest 1V DATE OF EXAM: 06/30/2016 7:24 AM COMPARISON: 06/29/2016 HISTORY: Follow-up pleural effusion TECHNIQUE: Single frontal view of the chest is obtained. FINDINGS: Underlying COPD noted with left lower lobe infiltrate and small effusion stable. No pneumo thorax. IMPRESSION: 1. Stable left lower lobe infiltrate and small effusion.
[2016-06-30 07:50] LABS: Calcium 8.2 mg/dL (8.4-10.2); Potassium 5.2 mmol/L (3.5-5.1); Total Bilirubin 0.7 mg/dL (0.2-1.3); Total Protein 5.1 g/dL (6.3-8.2)
[2016-06-30] MEDS: FOLIC ACID 1 MG TAB PO SCH (08:18)
[2016-06-30] MEDS: PANTOPRAZOLE 40 MG TABLET PO SCH (08:18)
[2016-06-30] MEDS: predniSONE 20 MG TAB PO SCH (08:18)
[2016-06-30] MEDS: ATENOLOL 50 MG TAB PO SCH (08:18)
[2016-06-30] MEDS: ISOSORBIDE MONONITRATE ER 30 MG TAB.ER.24H PO SCH (08:18)
[2016-06-30] MEDS: PREGABALIN 50 MG CAP PO SCH ×2 (08:18→20:10)
[2016-06-30] MEDS: DOCUSATE 100 MG CAP PO SCH ×3 (08:19→21:22)
[2016-06-30 11:50] LABS: Glucose,Whole Blood 126 mg/dL (75-99)
[2016-06-30] MEDS: FAMOTIDINE 20 MG TAB PO SCH (12:26)
[2016-06-30 12:47] LABS: INR 1.1 (<1.1); Prothrombin Time 11.2 sec (9.0-12.0)
[2016-06-30 12:50] LABS: Mean Platelet Volume 8.1
[2016-06-30 14:17] VITALS: BMI 22.5
--- NOTE | 2016-06-30 15:07 | US ---
EXAMINATION TYPE: US abdomen limited DATE OF EXAM: 06/30/2016 2:07 PM COMPARISON: CT dated 06/22/2016 CLINICAL HISTORY: For possible paracentesis. IMPRESSION: No ascites seen.
--- NOTE | 2016-06-30 15:32 | P.PN ---
Subjective Principal diagnosis: Left-sided pleural effusion 85-year-old male patient with known history of coronary artery disease, hypertension, hyperlipidemia, remote history of colon cancer who came into the hospital because of worsening shortness of breath and he was found to have a large left-sided pleural effusion. CAT scan of the chest was done and the patient was transferred to [facility] for further evaluation and treatment. A repeat CAT scan of the chest was done here in our hospital and the patient had limited evaluation of the mediastinum and the hilar area. There was suspected enlarged thoracic lymph nodes there were more pronounced at the level of the subcarina and for reference left subcarinal/peribronchial lymph node was measuring 2.8 x 1.6 cm in size and there was a large left infrahilar lymph node measuring 2.1 x 1.8 cm in size. No cardiomegaly or pericardial effusion. There was some vague hypodense lesions scattered throughout the liver and this raises the suspicion for metastatic disease. I've always broken this patient earlier this morning. I proceeded with a thoracentesis of the left lung and a total of 850 of hemorrhagic pleural effusion was aspirated from the left lung without any major complications. The patient tolerated the procedure well and his pulse ox remained above 90% without any desaturation or hypotension. Postprocedure chest x-ray showed a decrease in the left-sided pleural effusion and there was no evidence of any pneumothorax or complications noted. On 06/25/2016 the patient is being seen in follow-up. He remains quite stable and were still awaiting the results of the pleural effusion that was drained few days back. The patient has no specific complaints. Is resting comfortably in bed. No cough or sputum production chest tightness or wheezing. There is a concern of an underlying malignancy especially the patient has demonstrated some mediastinal lymphadenopathy on the CAT scan of the chest. On 06/26/2016, I'm seeing this patient in follow-up. The patient is resting comfortably in bed. Chest x-ray today shows a small left sided pleural effusion present. The fluid cytology is out and the patient has been found to have some rather atypical cells yet the cellularity was minimal and malignancy could not be diagnosed. The patient is has no specific complaints. On 06/30/2016, patient is doing well, no evidence of recurrent left pleural effusion, fluid was negative for malignancy. However that doesn't mean that malignancy is entirely ruled out. If the fluid comes back again, repeat thoracentesis would be considered, or even consider a VATS lung biopsy. Labs were reviewed, renal profile is noted BUN is 123 creatinine is 1.72. Objective - Vital Signs Vital signs: Vital Signs Temp 97.8 F 06/30/16 07:00 Pulse 82 06/30/16 07:18 Resp 22 06/30/16 07:00 BP 111/61 06/30/16 07:00 Pulse Ox 94 L 06/30/16 07:05 Intake & Output 06/29/16 06/30/16 06/30/16 18:59 06:59 18:59 Intake Total 1600 970 Output Total 400 200 Balance -400 1400 970 Weight 61.5 kg 61.5 kg Intake: Intake, IV Titration 1200 800 Amount Sodium Chloride 0.9% 1, 1200 800 000 ml @ 100 mls/hr IV . Q10H [facility] Rx#:[id number] Oral 400 170 Output: Urine 400 200 Other: Voiding Method Urinal Urinal Urinal Diaper Diaper Diaper # Voids 2 # Bowel Movements 1 - Exam Head exam was generally normal. There was no scleral icterus or corneal arcus. Mucous membranes were moist.Neck was supple and without jugular venous distension, thyromegaly, or carotid bruits. Carotids were easily palpable bilaterally. There was no adenopathy. Lung sounds are diminished in left lung base otherwise the rest of the lungs are essentially clear.Cardiac exam revealed the PMI to be normally situated and sized. The rhythm was regular and no extrasystoles were noted during several minutes of auscultation. The first and second heart sounds were normal and physiologic splitting of the second heart sound was noted. There were no murmurs, rubs, clicks, or gallops.Abdominal exam revealed normal bowel sounds. The abdomen was soft, non- tender, and without masses, organomegaly, or appreciable enlargement of the abdominal aorta.Examination of the extremities revealed easily palpable radial, femoral and pedal pulses. There was no cyanosis, clubbing or edema. - Labs CBC & Chem 7: 06/30/16 12:28 06/30/16 07:04 Labs: Abnormal Lab Results - Last 24 Hours (Table) 06/30/16 06/30/16 06/30/16 Range/Units 07:04 11:32 12:28 Plt Count 53 L (150-450) k/uL Potassium 5.2 H (3.5-5.1) mmol/L Chloride 108 H (98-107) mmol/L Carbon Dioxide 20 L (22-30) mmol/L BUN 123 H* (9-20) mg/dL Creatinine 1.72 H (0.66-1.25) mg/dL POC Glucose (mg/dL) 126 H (75-99) mg/dL Calcium 8.2 L (8.4-10.2) mg/dL AST 178 H (17-59) U/L ALT 76 H (21-72) U/L Alkaline Phosphatase 174 H (38-126) U/L Total Protein 5.1 L (6.3-8.2) g/dL Albumin 2.4 L (3.5-5.0) g/dL Assessment and Plan Plan: 1 bloody left-sided pleural effusion, status post diagnostic and therapeutic thoracentesis with evacuation of 850 mL of fluid without any complications. Still awaiting the pleural fluid cytology. Meanwhile the patient's this process is stable and the patient has no significant complaints. There is concern for malignancy especially with the presence of mediastinal lymphadenopathy. On 06/26/2016, the pleural fluid was labeled as negative for malignancy. Nevertheless my suspicion for malignancy is very high in this patient. I think we need to monitor the pleural effusion and watch for any recurrence. Recurrent accumulation of fluid within the left chest was supported diagnosis of malignancy and at that point we I may either be analyzed the pleural fluid and/or consider thoracoscopic intervention/biopsy for tissue diagnosis. On 06/30/2016, patient is doing relatively well, no evidence of recurrent pleural effusion, malignancy is not entirely ruled out on the pleural effusion, however if the effusion comes back again, or recurs, another thoracentesis or VATS lung biopsy should be considered. 2 shortness of breath secondary to above, improving 3 remote history of colon cancer 4 mediastinal and hilar lymphadenopathy, rule out malignancy. Patient is not the most ideal candidate for bronchoscopy and biopsy, 5 vague liver lesions which raises suspicion for hepatic metastases. Consider ultrasound guided liver biopsy of the metal multiple lesions noted on the liver. 6 hyperlipidemia 7 hypertension 8 coronary artery disease Recommendation: Consider ultrasound of the liver, and if the lesions are accessible easily, then consider ultrasound guided liver biopsy. Time with Patient: Less than 30
--- NOTE | 2016-06-30 17:19 | P.PN ---
Subjective Date of service 06/30/2016 Progress note dictated for Dr. Aguirre Interval history: This 85-year-old gentleman admitted with acute respiratory failure secondary to large left-sided pleural effusion status post thoracentesis and multiple other medical issues. Pleural cytology report having rare atypical cells raises suspicion for metastatic carcinoma, given minimal cellularity and staining results, specimen not definitively diagnostic of malignancy. Chest x-ray reporting stable left lower lobe infiltrate small effusion.Worsening renal function. LFTs worsening, INR 1.1. T bili 0.7. Abdominal ultrasound reporting no ascites. Denies chest pain, palpitations or increasing shortness of breath. Denies abdominal pain. Objective - Vital Signs Vital signs: Vital Signs Temp 97.8 F 06/30/16 07:00 Pulse 82 06/30/16 15:39 Resp 22 06/30/16 07:00 BP 111/61 06/30/16 07:00 Pulse Ox 94 L 06/30/16 07:05 Intake & Output 06/29/16 06/30/16 06/30/16 18:59 06:59 18:59 Intake Total 1600 970 Output Total 400 200 Balance -400 1400 970 Weight 61.5 kg 61.5 kg Intake: Intake, IV Titration 1200 800 Amount Sodium Chloride 0.9% 1, 1200 800 000 ml @ 100 mls/hr IV . Q10H [facility] Rx#:[id number] Oral 400 170 Output: Urine 400 200 Other: Voiding Method Urinal Urinal Urinal Diaper Diaper Diaper # Voids 2 # Bowel Movements 1 - Exam PHYSICAL EXAM: VITAL SIGNS: As above GENERAL: [Sitting up in bed, no acute distress] HEENT: [Pupils equal conjunctiva normal.] NECK: [Supple, no JVD] RESPIRATORY EFFORT:[Normal] LUNGS: [Essentially clear, bilateral bases diminished, no crackles wheezes or rhonchi] CARDIOVASCULAR[regular S1 and S2, no murmurs rubs or gallops, no edema] GI: [Abdomen soft, nontender, positive bowel sounds.] PSYCH: [Alert and oriented -3, mood and affect normal.] NEURO: Gross neurological examination did not reveal any focal deficits, moves all 4 extremities, strength and sensation grossly intact Microbiology 06/20/16 17:56 Urine,Voided Urine Culture - Final - Labs CBC & Chem 7: 06/30/16 12:28 06/30/16 07:04 Labs: Abnormal Lab Results - Last 24 Hours (Table) 06/30/16 06/30/16 06/30/16 Range/Units 07:04 11:32 12:28 Plt Count 53 L (150-450) k/uL Potassium 5.2 H (3.5-5.1) mmol/L Chloride 108 H (98-107) mmol/L Carbon Dioxide 20 L (22-30) mmol/L BUN 123 H* (9-20) mg/dL Creatinine 1.72 H (0.66-1.25) mg/dL POC Glucose (mg/dL) 126 H (75-99) mg/dL Calcium 8.2 L (8.4-10.2) mg/dL AST 178 H (17-59) U/L ALT 76 H (21-72) U/L Alkaline Phosphatase 174 H (38-126) U/L Total Protein 5.1 L (6.3-8.2) g/dL Albumin 2.4 L (3.5-5.0) g/dL Assessment and Plan Plan: 1. [Left sided pleural effusion, status post thoracentesis, the patient with retroperitoneal lymphadenopathy]. 2. [History of colon CA]. 3. [Acute renal failure with prerenal azotemia secondary to severe intravascular depletion, worsening]. 4. [Hyperkalemia secondary to renal failure and BERNIE inhibitor]. 5. [Acute hypoxic respiratory failure secondary to left-sided pleural effusion, improved post thoracentesis]. 6. [Generalized deconditioning]. 7. [Hypertension]. 8. Hyperlipidemia. 9. Mediastinal and hilar lymphadenopathy, rule out malignancy. Not a candidate for diagnostic bronchoscopy per pulmonary 10. Multiple vague liver lesions, rule out hepatic metastasis Plan: Continue on current medication regime ,monitoring and symptomatic treatment. Maintain IV fluid hydration. Nephrology consult initiated given worsening renal function as well as diet modified to renal. Close monitoring of renal function with repeat labs ordered for am. Ultrasound of liver with biopsy being considered regarding suspicion for hepatic metastasis. Follow closely with multiple consults. Further recommendations to follow. The impression and plan of care has been dictated as directed. : I performed a H&P examination of this patient and discussed the same with the dictator. I agree with the dictator's note. Any additional findings/opinions/ etc. will be noted.
[2016-07-01] MEDS: SODIUM CHLORIDE 0.9% 1,000 ML IV SCH ×3 (05:57→22:11)
[2016-07-01] MEDS: ISOSORBIDE MONONITRATE ER 30 MG TAB.ER.24H PO SCH (09:16)
[2016-07-01] MEDS: FAMOTIDINE 20 MG TAB PO SCH (09:16)
[2016-07-01] MEDS: FOLIC ACID 1 MG TAB PO SCH (09:16)
[2016-07-01] MEDS: PREGABALIN 50 MG CAP PO SCH ×2 (09:16→21:06)
[2016-07-01] MEDS: predniSONE 20 MG TAB PO SCH (09:17)
[2016-07-01] MEDS: DOCUSATE 100 MG CAP PO SCH ×2 (09:17→21:05)
[2016-07-01] MEDS: ATENOLOL 50 MG TAB PO SCH (09:17)
[2016-07-01] MEDS: IPRATROPIUM-ALBUTEROL 3 ML NEB INHALATION SCH ×4 (09:40→20:28)
--- NOTE | 2016-07-01 11:07 | US ---
EXAMINATION TYPE: US liver DATE OF EXAM: 07/01/2016 10:26 AM COMPARISON: on PACS CLINICAL HISTORY: possible liver mets. Hx of cancer EXAM MEASUREMENTS: Liver Length: 12.8 cm Gallbladder Wall: 0.1 cm CHD: 0.2 cm Right Kidney: 9.3 x 4.5 x 4.8 cm TECHNOLOGIST IMPRESSION: Pancreas: echogenic, tail not well seen due to overlying bowel gas. Main pancreatic duct= 1.4 mm Liver: multiple hypoechoic lesions seen throughout liver. Largest on right= 2.2 x 1.9 x 1.8 cm. La rgest on left= 1.4 x 1.4 x 1.2 cm Gallbladder: wnl Evidence for sonographic Pagan's sign: neg CBD: wnl Right Kidney: wnl IMPRESSION: Findings suggest metastatic disease to the liver.
--- NOTE | 2016-07-01 11:23 | P.NPCON ---
History of Present Illness - Reason for Consult acute renal failure - History of Present Illness Reason for consultation: Acute kidney injury History of present illness: Patient is a 85-year-old male seen in renal consultation for acute kidney injury. His baseline creatinine is near 1 and was elevated at 1.65 on June 29 and up to 1.7-1 June 30. Labs from today are pending at this time. Patient presented with dyspnea. He was noted to have a left-sided pleural effusion for which he underwent thoracentesis and 850 mL were removed. There is question for malignancy. He is currently resting in bed. Denies any chest pain. Dyspnea is improving. He was receiving IV diuretics which were discontinued and is now maintained on IV fluids running at 100 mL an hour. He is also off all antibiotics as there was no clear evidence for pneumonia. Methotrexate has also been discontinued. He admits to good urine output. Denies any hematuria or dysuria. Denies regular use of NSAIDs. Vital signs are stable. General: The patient appeared well nourished and normally developed. HEENT: Head exam is unremarkable. Neck is without jugular venous distension. LUNGS: Lungs are clear to auscultation and percussion. Breath sounds decreased. HEART: Rate and Rhythm are regular. First and second heart sounds normal. No murmurs, rubs or gallops. ABDOMEN: Abdominal exam reveals normal bowel sounds. Non-tender and non- distended. No evidence of peritonitis. EXTREMITITES: No clubbing, cyanosis, or edema. Past Medical History Past Medical History: Coronary Artery Disease (CAD), Cancer, Eye Disorder, Hyperlipidemia, Hypertension, Osteoarthritis (OA) Additional Past Medical History / Comment(s): hypotension, partial (bottom) dentures, anemia, colon ca, skin ca History of Any Multi-Drug Resistant Organisms: None Reported Past Surgical History: Adenoidectomy, Appendectomy, Tonsillectomy Additional Past Surgical History / Comment(s): Bilat cataract removal Past Anesthesia/Blood Transfusion Reactions: No Reported Reaction Past Psychological History: No Psychological Hx Reported Smoking Status: Former smoker Past Alcohol Use History: None Reported Past Drug Use History: None Reported - Past Family History Mother History Unknown: Yes Family Medical History: No Reported History Medications and Allergies Home Medications Medication Instructions Recorded Confirmed Type Atenolol [Tenormin] 50 mg PO DAILY 06/20/16 06/20/16 History Folic Acid 1 mg PO DAILY 06/20/16 06/20/16 History Isosorbide Mononitrate ER [Imdur] 30 mg PO DAILY 06/20/16 06/20/16 History Lisinopril [Zestril] 20 mg PO DAILY 06/20/16 06/20/16 History Methotrexate Sodium [Methotrexate] 7.5 mg PO Q7D 06/20/16 06/20/16 History Omeprazole [PriLOSEC] 20 mg PO DAILY 06/20/16 06/20/16 History Pregabalin [Lyrica] 50 mg PO DAILY 06/20/16 06/20/16 History Allergies Allergy/AdvReac Type Severity Reaction Status Date / Time Penicillins Allergy Unknown Verified 06/20/16 16:07 rosuvastatin [From Crestor] Allergy Unknown Verified 06/20/16 16:07 Physical Exam Vitals: Vital Signs Temp Pulse Pulse Resp BP BP Pulse Ox 07/01/16 09:53 84 07/01/16 09:45 80 07/01/16 07:00 97.6 F 85 18 127/59 90 L 06/30/16 22:51 98.0 F 86 16 116/58 91 L 06/30/16 15:39 82 06/30/16 15:32 82 06/30/16 15:00 97.6 F 69 18 104/52 95 Intake and Output 06/30/16 07/01/16 07/01/16 22:59 06:59 14:59 Intake Total 590 590 35 Balance 590 590 35 Intake: Oral 590 590 35 Other: Voiding Method Urinal Urinal Urinal Diaper Diaper Diaper # Voids 2 # Bowel Movements 2 Weight 61.6 kg Results - Lab Results Most recent lab results Calcium 8.2 mg/dL (8.4-10.2) L 06/30/16 07:04 Phosphorus 4.9 mg/dL (2.5-4.5) H 06/20/16 16:46 Magnesium 2.3 mg/dL (1.6-2.3) 06/25/16 05:39 06/30/16 12:28 06/30/16 07:04 Assessment and Plan Plan: Assessment: #1. Nonoliguric acute kidney injury mostly prerenal in nature secondary to diuresis. Creatinine up to 1.72 yesterday. Labs from today are pending at this time. Baseline creatinine is near 1. Will rule out ALLERGIC interstitial nephritis as he was receiving methotrexate as well as antibiotics. Also rule out urinary retention. #2. Left-sided pleural effusion status post thoracentesis with 850 mL drained. There is concern for malignancy but no clear evidence at this time. #3. Metabolic acidosis secondary to acute kidney injury. #4. Elevated BUN secondary to acute kidney injury as well as diuretics and prednisone. No evidence of GI bleed. Plan: Maintain normal saline to be run at 100 mL an hour. Check a urinalysis. Check postvoid residual. Check urine eosinophils. Avoid nephrotoxic agents and hypotensive episodes. Repeat electrolytes in the morning. Thank you for the consultation. I will continue to follow the patient with you during his hospital stay.
--- NOTE | 2016-07-01 14:35 | P.PN ---
Subjective 85-year-old male patient with known history of coronary artery disease, hypertension, hyperlipidemia, remote history of colon cancer who came into the hospital because of worsening shortness of breath and he was found to have a large left-sided pleural effusion. CAT scan of the chest was done and the patient was transferred to [facility] for further evaluation and treatment. A repeat CAT scan of the chest was done here in our hospital and the patient had limited evaluation of the mediastinum and the hilar area. There was suspected enlarged thoracic lymph nodes there were more pronounced at the level of the subcarina and for reference left subcarinal/peribronchial lymph node was measuring 2.8 x 1.6 cm in size and there was a large left infrahilar lymph node measuring 2.1 x 1.8 cm in size. No cardiomegaly or pericardial effusion. There was some vague hypodense lesions scattered throughout the liver and this raises the suspicion for metastatic disease. Patient is seen again today 07/01/2016 in follow-up. He is status post left lung thoracentesis of approximately 850 ML's of hemorrhagic pleural fluid drained by Dr. Solis. Pathology is reveals atypical cells which was nondiagnostic. However, malignancy remains high in the differential. A liver ultrasound today was suggestive of metastatic liver disease. He denies any significant abdominal discomfort. He denies any worsening shortness of breath. He continues with a left lower lobe consolidation. No significant recurrence of pleural effusion. He is maintaining O2 saturations in the low 90s on 3 L/m per nasal cannula. He's been afebrile. Hemodynamically stable. His creatinine is up to 1.72. Nephrology has been consulted. C. difficile screen is negative. Objective - Vital Signs Vital signs: Vital Signs Temp 97.6 F 07/01/16 07:00 Pulse 80 07/01/16 13:28 Resp 18 07/01/16 07:00 BP 127/59 07/01/16 07:00 Pulse Ox 90 L 07/01/16 07:00 Intake & Output 06/30/16 07/01/16 07/01/16 18:59 06:59 18:59 Intake Total 970 1180 835 Balance 970 1180 835 Weight 61.5 kg 61.6 kg Intake: Intake, IV Titration 800 800 Amount Sodium Chloride 0.9% 1, 800 800 000 ml @ 100 mls/hr IV . Q10H [facility] Rx#:[id number] Oral 170 1180 35 Other: Voiding Method Urinal Urinal Urinal Diaper Diaper Diaper # Voids 2 # Bowel Movements 2 - Exam Head exam was generally normal. There was no scleral icterus or corneal arcus. Mucous membranes were moist.Neck was supple and without jugular venous distension, thyromegaly, or carotid bruits. Carotids were easily palpable bilaterally. There was no adenopathy. Lung sounds are diminished in left lung base otherwise the rest of the lungs are essentially clear.Cardiac exam revealed the PMI to be normally situated and sized. The rhythm was regular and no extrasystoles were noted during several minutes of auscultation. The first and second heart sounds were normal and physiologic splitting of the second heart sound was noted. There were no murmurs, rubs, clicks, or gallops.Abdominal exam revealed normal bowel sounds. The abdomen was soft, non- tender, and without masses, organomegaly, or appreciable enlargement of the abdominal aorta.Examination of the extremities revealed easily palpable radial, femoral and pedal pulses. There was no cyanosis, clubbing or edema. - Labs CBC & Chem 7: 06/30/16 12:28 06/30/16 07:04 Assessment and Plan Plan: Impression: 1 bloody left-sided pleural effusion, status post diagnostic and therapeutic thoracentesis with evacuation of 850 mL of fluid without any complications. Pathology reveals rare atypical cells nondiagnostic of malignancy 2 shortness of breath secondary to above, improving 3 remote history of colon cancer 4 mediastinal and hilar lymphadenopathy, rule out malignancy 5 vague liver lesions which raises suspicion for hepatic metastases. Ultrasound today suggests metastatic liver disease. 6 hyperlipidemia 7 hypertension 8 coronary artery disease Plan: The patient was seen and evaluated by Dr. Valadez. The patient continues to improve from the pulmonary standpoint. The patient's ultrasound of the liver did reveal suspected metastatic liver disease. He may benefit from liver biopsy as the pleural effusion was nondiagnostic. We will continue to follow make further recommendations based on his clinical status.
[2016-07-01 14:40] LABS: Appearance,Urine Clear (Clear); Bilirubin,Urine Negative (Negative); Glucose,Urine (UA) Negative (Negative); Ketones,Urine Negative (Negative); Leukocyte Esterase,Urine Negative (Negative); Nitrite,Urine Negative (Negative); Protein,Urine Negative (Negative); Specific Gravity,Urine 1.012 (1.001-1.035); UA Billing (MACRO vs. MICRO) CHEM; Urobilinogen,Urine <2.0 mg/dL (<2.0)
[2016-07-01 18:24] LABS: Anion Gap 13 mmol/L; Calcium 7.8 mg/dL (8.4-10.2); Carbon Dioxide 16 mmol/L (22-30); Chloride 118 mmol/L (98-107); Glucose 141 mg/dL (74-99); Non-African American GFR(MDRD) 57 (>60 ml/min/1.73 sqM); Potassium 4.4 mmol/L (3.5-5.1); Sodium 147 mmol/L (137-145)
[2016-07-01 18:26] LABS: Blood Urea Nitrogen 91 mg/dL (9-20)
[2016-07-01 18:28] LABS: Anisocytosis Slight; Basophils % (A) 0 %; CHCM 31.4; Eosinophils % (A) 0 %; HCT 29.1 % (39.0-53.0); HDW 3.05; HGB 9.3 gm/dL (13.0-17.5); Hypochromasia Slight; Luc # (Auto) 0.01; Luc % (Auto) 0; Lymphocytes # (A) 0.5 k/uL (1.0-4.8); Lymphocytes % (A) 14 %; MCH 29.6 pg (25.0-35.0); MCHC 31.9 g/dL (31.0-37.0); MCV 92.8 fL (80.0-100.0); Mean Platelet Volume 7.5; Monocytes # (A) 0.1 k/uL (0-1.0); Monocytes % (A) 3 %; Neutrophils # (A) 2.8 k/uL (1.3-7.7); Neutrophils % (A) 82 %; RBC 3.13 m/uL (4.30-5.90); WBC 3.5 k/uL (3.8-10.6); WBC (Perox) 3.66
--- NOTE | 2016-07-01 20:56 | P.PN ---
Subjective Date of service 07/01/2016 Progress note dictated for Dr. Aguirre Interval history: This 85-year-old gentleman admitted with acute respiratory failure secondary to large left-sided pleural effusion status post thoracentesis and multiple other medical issues. Worsening renal function. Evaluated by nephrology with recommendations noted. Hyperchloremic, hypernatremic. Liver ultrasound reporting liver metastasis. Denies chest pain, palpitations or increasing shortness of breath. Denies abdominal pain. Objective - Vital Signs Vital signs: Vital Signs Temp 98.3 F 07/01/16 16:51 Pulse 60 07/01/16 17:36 Resp 14 07/01/16 17:36 BP 166/72 07/01/16 17:36 Pulse Ox 92 L 07/01/16 17:36 Intake & Output 06/30/16 07/01/16 07/01/16 18:59 06:59 18:59 Intake Total 970 1180 1015 Balance 970 1180 1015 Weight 61.5 kg 61.6 kg Intake: Intake, IV Titration 800 800 Amount Sodium Chloride 0.9% 1, 800 800 000 ml @ 100 mls/hr IV . Q10H [facility] Rx#:[id number] Oral 170 1180 215 Other: Voiding Method Urinal Urinal Urinal Diaper Diaper Diaper # Voids 2 1 # Bowel Movements 2 1 - Exam PHYSICAL EXAM: VITAL SIGNS: As above GENERAL: [Sitting up in chair, eating lunch, no acute distress] HEENT: [Pupils equal conjunctiva normal.] NECK: [Supple, no JVD] RESPIRATORY EFFORT:[Normal] LUNGS: [Essentially clear, bilateral bases diminished, no crackles wheezes or rhonchi] CARDIOVASCULAR[regular S1 and S2, no murmurs rubs or gallops, no edema] GI: [Abdomen soft, nontender, positive bowel sounds.] PSYCH: [Alert and oriented -2, pleasantly confused, states he went to [place] last night] NEURO: Gross neurological examination did not reveal any focal deficits, moves all 4 extremities, strength and sensation grossly intact - Labs CBC & Chem 7: 07/01/16 17:54 07/01/16 17:54 Assessment and Plan Plan: 1. [Left sided pleural effusion, status post thoracentesis, the patient with retroperitoneal lymphadenopathy]. 2. [History of colon CA]. 3. [Acute renal failure with prerenal azotemia secondary to severe intravascular depletion, worsening]. 4. [Hyperkalemia secondary to renal failure and BERNIE inhibitor]. 5. [Acute hypoxic respiratory failure secondary to left-sided pleural effusion, improved post thoracentesis]. 6. [Generalized deconditioning]. 7. [Hypertension]. 8. Hyperlipidemia. 9. Mediastinal and hilar lymphadenopathy, rule out malignancy. Not a candidate for diagnostic bronchoscopy per pulmonary 10. Multiple vague liver lesions, Liver metastasis per liver ultrasound. 11. Hyperchloremic 12. Hypernatremia Plan: Continue on current medication regime ,monitoring and symptomatic treatment. IV fluids changed to LR. Family at bedside and updated on plan of care , verbalize understanding of and agreement with. Nephrology recommendations noted and appreciated. Close monitoring of renal function, electrolytes with repeat labs ordered for am. Liver ultrasound suggestive of metastasis, possible liver biopsy with further recommendations pending from oncology. Prognosis guarded given multiple complex medical issues. Further recommendations to follow. The impression and plan of care has been dictated as directed. : I performed a H&P examination of this patient and discussed the same with the dictator. I agree with the dictator's note. Any additional findings/opinions/ etc. will be noted.
[2016-07-01 21:13] LABS: Glucose,Whole Blood 134 mg/dL (75-99)
--- NOTE | 2016-07-01 22:44 | CT ---
EXAM: CT Head Without Intravenous Contrast. CLINICAL HISTORY: Reason: change in mental status TECHNIQUE: Axial computed tomography images of the head/brain without intravenous contrast. CTDI is 57.40 mGy and DLP is 926.50 mGy-cm COMPARISON: Recent 06/22/[address] FINDINGS: Brain: There is again global atrophy and diffuse presumed chronic small vessel ischemic changes, without significant change. No new acute intracranial hemorrhage, midline shift or mass effect has developed. No identifiable recent territorial infarct. Ventricles: Unchanged.. Bones: No acute fracture. Sinuses: Unremarkable as visualized. No acute sinusitis. Mastoid air cells: Unremarkable as visualized. No mastoid effusion. Vasculature: Intracranial atherosclerosis involves the vertebral and internal carotid arteries. Other findings: Of incidental note is absence of the lens bilaterally, presumably postsurgical. IMPRESSION: No definite interval change is seen since 06/22/[address] Note that acute infarct may initially be inapparent, and short-term follow-up could be considered as clinically indicated.
[2016-07-02 08:05] LABS: Anisocytosis Slight; Basophils % (A) 0 %; CHCM 31.4; Eosinophils % (A) 1 %; HCT 30.5 % (39.0-53.0); HDW 3.08; HGB 9.8 gm/dL (13.0-17.5); Hypochromasia Slight; Luc # (Auto) 0.02; Luc % (Auto) 1; Lymphocytes # (A) 0.6 k/uL (1.0-4.8); Lymphocytes % (A) 22 %; MCH 29.7 pg (25.0-35.0); MCV 92.8 fL (80.0-100.0); Mean Platelet Volume 7.2; Monocytes # (A) 0.1 k/uL (0-1.0); Monocytes % (A) 2 %; Neutrophils # (A) 1.9 k/uL (1.3-7.7); Neutrophils % (A) 73 %; RBC 3.29 m/uL (4.30-5.90); WBC 2.7 k/uL (3.8-10.6); WBC (Perox) 2.57
[2016-07-02] MEDS: ATENOLOL 50 MG TAB PO SCH (08:25)
[2016-07-02] MEDS: FAMOTIDINE 20 MG TAB PO SCH (08:25)
[2016-07-02] MEDS: DOCUSATE 100 MG CAP PO SCH ×2 (08:25→20:29)
[2016-07-02] MEDS: ISOSORBIDE MONONITRATE ER 30 MG TAB.ER.24H PO SCH (08:26)
[2016-07-02] MEDS: predniSONE 20 MG TAB PO SCH (08:26)
[2016-07-02] MEDS: FOLIC ACID 1 MG TAB PO SCH (08:26)
[2016-07-02] MEDS: PREGABALIN 50 MG CAP PO SCH ×2 (08:26→20:29)
[2016-07-02 08:29] LABS: ALT 62 U/L (21-72); AST 124 U/L (17-59); Alkaline Phosphatase 162 U/L (38-126); Blood Urea Nitrogen 72 mg/dL (9-20); Calcium 8.4 mg/dL (8.4-10.2); Carbon Dioxide 20 mmol/L (22-30); Glucose 108 mg/dL (74-99); Non-African American GFR(MDRD) >60 (>60 ml/min/1.73 sqM); Potassium 4.5 mmol/L (3.5-5.1); Sodium 154 mmol/L (137-145); Total Bilirubin 0.8 mg/dL (0.2-1.3); Total Protein 5.3 g/dL (6.3-8.2)
[2016-07-02 08:43] LABS: Anion Gap 11 mmol/L
[2016-07-02 08:44] LABS: Chloride 123 mmol/L (98-107)
[2016-07-02] MEDS: IPRATROPIUM-ALBUTEROL 3 ML NEB INHALATION SCH ×4 (09:32→20:27)
[2016-07-02] MEDS ORDERED: DEXTROSE 5% IN WATER 1,000 ML IV ONE (10:01)
--- NOTE | 2016-07-02 13:08 | XR ---
EXAMINATION TYPE: XR chest 1V portable DATE OF EXAM: 07/02/2016 12:59 PM Comparison: 06/30/2016 Clinical History: 85-year-old male pleural effusions Findings: Heart is upper limits of normal in size. Mild diffuse interstitial prominence. Small left pleural eff usion with adjacent left lower lung opacity, stable from prior. Impression: Stable small left pleural effusion with adjacent atelectasis and/or consolidation.
--- NOTE | 2016-07-02 13:28 | P.PN ---
Subjective 85-year-old male patient with known history of coronary artery disease, hypertension, hyperlipidemia, remote history of colon cancer who came into the hospital because of worsening shortness of breath and he was found to have a large left-sided pleural effusion. CAT scan of the chest was done and the patient was transferred to [facility] for further evaluation and treatment. A repeat CAT scan of the chest was done here in our hospital and the patient had limited evaluation of the mediastinum and the hilar area. There was suspected enlarged thoracic lymph nodes there were more pronounced at the level of the subcarina and for reference left subcarinal/peribronchial lymph node was measuring 2.8 x 1.6 cm in size and there was a large left infrahilar lymph node measuring 2.1 x 1.8 cm in size. No cardiomegaly or pericardial effusion. There was some vague hypodense lesions scattered throughout the liver and this raises the suspicion for metastatic disease. Patient is seen again today 07/01/2016 in follow-up. He is status post left lung thoracentesis of approximately 850 ML's of hemorrhagic pleural fluid drained by Dr. Solis. Pathology is reveals atypical cells which was nondiagnostic. However, malignancy remains high in the differential. A liver ultrasound today was suggestive of metastatic liver disease. He denies any significant abdominal discomfort. He denies any worsening shortness of breath. He continues with a left lower lobe consolidation. No significant recurrence of pleural effusion. He is maintaining O2 saturations in the low 90s on 3 L/m per nasal cannula. He's been afebrile. Hemodynamically stable. His creatinine is up to 1.72. Nephrology has been consulted. C. difficile screen is negative. The patient is seen again today 07/02/2016 in follow-up. He is less alert today as compared to yesterday. A computed tomography scan of the brain last night did not reveal any acute intracranial abnormalities. Today's chest x-ray reveals only small left pleural effusion with adjacent atelectasis. He is maintaining good O2 saturations in the upper 90s on 3 L/m per nasal cannula. Afebrile. The plan was for a liver biopsy to obtain a diagnosis of suspected metastasis however his platelet counts continue to drop and currently at 48,000 and the procedure was canceled for today. He remains with pancytopenia with white count of 2.7 hemoglobin 9.8. He is also getting more hypernatremic with a sodium of 154, hyperchloremic with the chloride of 123. His IV is switched to D5W at 75 L per hour. His family is at the bedside and are considering possible comfort care. Objective - Vital Signs Vital signs: Vital Signs Temp 97.7 F 07/02/16 08:01 Pulse 98 07/02/16 08:01 Resp 24 07/02/16 08:01 BP 164/70 07/02/16 08:01 Pulse Ox 98 07/02/16 08:01 Intake & Output 07/01/16 07/02/16 07/02/16 18:59 06:59 18:59 Intake Total 1015 1180 Balance 1015 1180 Weight 60 kg Intake: Intake, IV Titration 800 Amount Sodium Chloride 0.9% 1, 800 000 ml @ 100 mls/hr IV . Q10H LIANE Rx#:[id number] Oral 215 1180 Other: Voiding Method Urinal Diaper Diaper Diaper # Voids 1 1 1 # Bowel Movements 1 1 - Exam Head exam was generally normal. There was no scleral icterus or corneal arcus. Mucous membranes were moist.Neck was supple and without jugular venous distension, thyromegaly, or carotid bruits. Carotids were easily palpable bilaterally. There was no adenopathy. Lung sounds are diminished in left lung base otherwise the rest of the lungs are essentially clear.Cardiac exam revealed the PMI to be normally situated and sized. The rhythm was regular and no extrasystoles were noted during several minutes of auscultation. The first and second heart sounds were normal and physiologic splitting of the second heart sound was noted. There were no murmurs, rubs, clicks, or gallops. Tachycardic. Abdominal exam revealed normal bowel sounds. The abdomen was soft , non-tender, and without masses, organomegaly, or appreciable enlargement of the abdominal aorta.Examination of the extremities revealed easily palpable radial, femoral and pedal pulses. There was no cyanosis, clubbing or edema. - Labs CBC & Chem 7: 07/02/16 07:07 07/02/16 07:07 Labs: Abnormal Lab Results - Last 24 Hours (Table) 07/01/16 07/01/16 07/01/16 Range/Units 17:54 17:54 21:12 WBC 3.5 L (3.8-10.6) k/uL RBC 3.13 L (4.30-5.90) m/uL Hgb 9.3 L (13.0-17.5) gm/dL Hct 29.1 L (39.0-53.0) % RDW 18.0 H (11.5-15.5) % Plt Count 43 L* (150-450) k/uL Lymphocytes # 0.5 L (1.0-4.8) k/uL Sodium 147 H (137-145) mmol/L Chloride 118 H (98-107) mmol/L Carbon Dioxide 16 L (22-30) mmol/L BUN 91 H* (9-20) mg/dL Glucose 141 H (74-99) mg/dL POC Glucose (mg/dL) 134 H (75-99) mg/dL Calcium 7.8 L (8.4-10.2) mg/dL AST (17-59) U/L Alkaline Phosphatase (38-126) U/L Total Protein (6.3-8.2) g/dL Albumin (3.5-5.0) g/dL 07/02/16 07/02/16 Range/Units 07:07 07:07 WBC 2.7 L (3.8-10.6) k/uL RBC 3.29 L (4.30-5.90) m/uL Hgb 9.8 L (13.0-17.5) gm/dL Hct 30.5 L (39.0-53.0) % RDW 18.0 H (11.5-15.5) % Plt Count 48 L* (150-450) k/uL Lymphocytes # 0.6 L (1.0-4.8) k/uL Sodium 154 H (137-145) mmol/L Chloride 123 H* (98-107) mmol/L Carbon Dioxide 20 L (22-30) mmol/L BUN 72 H (9-20) mg/dL Glucose 108 H (74-99) mg/dL POC Glucose (mg/dL) (75-99) mg/dL Calcium (8.4-10.2) mg/dL AST 124 H (17-59) U/L Alkaline Phosphatase 162 H (38-126) U/L Total Protein 5.3 L (6.3-8.2) g/dL Albumin 2.5 L (3.5-5.0) g/dL Assessment and Plan Plan: Impression: #1 Bloody left-sided pleural effusion, status post diagnostic and therapeutic thoracentesis with evacuation of 850 mL of fluid without any complications. Pathology reveals rare atypical cells nondiagnostic of malignancy #2 Shortness of breath secondary to above, improving #3 Remote history of colon cancer #4 Mediastinal and hilar lymphadenopathy, rule out malignancy #5 Vague liver lesions which raises suspicion for hepatic metastases. Ultrasound today suggests metastatic liver disease. Unable to perform biopsy secondary to thrombocytopenia. #6 Hyperlipidemia #7 Hypertension #8 Coronary artery disease #9 Pancytopenia #10 Hypernatremic hyperchloremia Plan: The patient was seen and evaluated by Dr. Valadez. The patient's chest x-ray was reviewed. Is stable currently. Labs were reviewed. The patient's ultrasound of the liver did reveal suspected metastatic liver disease. He would benefit from liver biopsy as the pleural effusion was nondiagnostic however the patient's platelet counts are too low for interventional radiology to perform the procedure safely. The patient is less responsive today as compared to yesterday. His overall prognosis remains quite poor. The family is aware and are considering comfort care versus waiting to perform a biopsy. We'll await further recommendations from oncology. We will continue to follow make further recommendations based on his clinical status.
--- NOTE | 2016-07-02 16:53 | P.PN ---
Subjective Date of service 07/02/2016 Progress note dictated for Dr. Aguirre Interval history: This 85-year-old gentleman admitted with acute respiratory failure secondary to large left-sided pleural effusion status post thoracentesis and multiple other medical issues. Renal function mildly improved. More confused and lethargic today. Brain CT non-acute. Hyperchloremic, hypernatremic, worsening. IV fluids changed to D5W. Multiple family members at bedside, discussed radiology findings, suspected liver metastasis, unable to perform liver biopsy as platelets 48. CODE STATUS changed to no code per family's wishes. Comfort care currently being discussed. Objective - Vital Signs Vital signs: Vital Signs Temp 97.7 F 07/02/16 08:01 Pulse 98 07/02/16 08:01 Resp 24 07/02/16 08:01 BP 164/70 07/02/16 08:01 Pulse Ox 98 07/02/16 08:01 Intake & Output 07/01/16 07/02/16 07/02/16 18:59 06:59 18:59 Intake Total 1015 1180 Balance 1015 1180 Weight 60 kg Intake: Intake, IV Titration 800 Amount Sodium Chloride 0.9% 1, 800 000 ml @ 100 mls/hr IV . Q10H LIANE Rx#:[id number] Oral 215 1180 Other: Voiding Method Urinal Diaper Diaper Diaper # Voids 1 1 1 # Bowel Movements 1 1 - Exam PHYSICAL EXAM: VITAL SIGNS: As above GENERAL: [Sitting up in bed, increased confusion, tired appearing, slurred speech HEENT: [Pupils equal conjunctiva normal.] NECK: [Supple, no JVD] RESPIRATORY EFFORT:[Normal] LUNGS: [Essentially clear, bilateral bases diminished, no crackles wheezes or rhonchi] CARDIOVASCULAR[regular S1 and S2, no murmurs rubs or gallops, no edema] GI: [Abdomen soft, nontender, positive bowel sounds.] PSYCH: [Alert and oriented -1-2, pleasantly confused NEURO: Gross neurological examination did not reveal any focal deficits, moves all 4 extremities, strength and sensation grossly intact - Labs CBC & Chem 7: 07/02/16 07:07 07/02/16 07:07 Labs: Abnormal Lab Results - Last 24 Hours (Table) 07/01/16 07/01/16 07/01/16 Range/Units 17:54 17:54 21:12 WBC 3.5 L (3.8-10.6) k/uL RBC 3.13 L (4.30-5.90) m/uL Hgb 9.3 L (13.0-17.5) gm/dL Hct 29.1 L (39.0-53.0) % RDW 18.0 H (11.5-15.5) % Plt Count 43 L* (150-450) k/uL Lymphocytes # 0.5 L (1.0-4.8) k/uL Sodium 147 H (137-145) mmol/L Chloride 118 H (98-107) mmol/L Carbon Dioxide 16 L (22-30) mmol/L BUN 91 H* (9-20) mg/dL Glucose 141 H (74-99) mg/dL POC Glucose (mg/dL) 134 H (75-99) mg/dL Calcium 7.8 L (8.4-10.2) mg/dL AST (17-59) U/L Alkaline Phosphatase (38-126) U/L Total Protein (6.3-8.2) g/dL Albumin (3.5-5.0) g/dL 07/02/16 07/02/16 Range/Units 07:07 07:07 WBC 2.7 L (3.8-10.6) k/uL RBC 3.29 L (4.30-5.90) m/uL Hgb 9.8 L (13.0-17.5) gm/dL Hct 30.5 L (39.0-53.0) % RDW 18.0 H (11.5-15.5) % Plt Count 48 L* (150-450) k/uL Lymphocytes # 0.6 L (1.0-4.8) k/uL Sodium 154 H (137-145) mmol/L Chloride 123 H* (98-107) mmol/L Carbon Dioxide 20 L (22-30) mmol/L BUN 72 H (9-20) mg/dL Glucose 108 H (74-99) mg/dL POC Glucose (mg/dL) (75-99) mg/dL Calcium (8.4-10.2) mg/dL AST 124 H (17-59) U/L Alkaline Phosphatase 162 H (38-126) U/L Total Protein 5.3 L (6.3-8.2) g/dL Albumin 2.5 L (3.5-5.0) g/dL Assessment and Plan Plan: 1. [Left sided pleural effusion, status post thoracentesis, the patient with retroperitoneal lymphadenopathy]. 2. [History of colon CA]. 3. [Acute renal failure with prerenal azotemia secondary to severe intravascular depletion,. 4. [Hyperkalemia secondary to renal failure and BERNIE inhibitor]. 5. [Acute hypoxic respiratory failure secondary to left-sided pleural effusion, improved post thoracentesis]. 6. [Generalized deconditioning]. 7. [Hypertension]. 8. Hyperlipidemia. 9. Mediastinal and hilar lymphadenopathy, rule out malignancy. Not a candidate for diagnostic bronchoscopy per pulmonary 10. Multiple vague liver lesions, Liver metastasis per liver ultrasound. 11. Hyperchloremic 12. Hypernatremia 13. No Code, No CPR, No Intubation Plan: Continue on current medication regime ,monitoring and symptomatic treatment. Family at bedside, updated, CODE STATUS changed as mentioned above to no code and family is discussing comfort care. Further recommendations pending from oncology. MRI of brain pending. Prognosis poor given multiple complex medical issues. Further recommendations to follow. The impression and plan of care has been dictated as directed. : I performed a H&P examination of this patient and discussed the same with the dictator. I agree with the dictator's note. Any additional findings/opinions/ etc. will be noted.
--- NOTE | 2016-07-02 19:07 | P.CNNES ---
History of Present Illness Consult date: 07/02/16 Reason for Consult: Patient with altered mental status and confusion. History of Present Illness: This patient is a 85-year-old right-handed white male who was initially admitted to Hospital on 06/20/2016 for treatment of acute respiratory failure secondary to a large left-sided pleural effusion. Patient was admitted and was followed by several specialists including pulmonary medicine. The patient underwent a thoracentesis for the left-sided pleural effusion. The final biopsy report indicated possible atypical cells. The patient was sent for an ultrasound of the liver yesterday which revealed multiple hypoechoic lesions seen throughout the liver. This finding suggests possibility of metastatic lesions to the liver. Oncology is following this patient very closely. Apparently yesterday and today he showed change in mental status with increased lethargy. He was sent for a computed tomography scan of the brain which revealed non-specific findings. There was no evidence of acute stroke or hemorrhage. He is scheduled to undergo an MRI of the brain later this evening. The patient is resting comfortably and is easily arousable. He denies any headache. He denies any focal weakness. He does seem to be slightly confused at times. He has remained afebrile according to the nursing staff. He does have multiple metabolic abnormalities and is being treated for acute kidney injury as well. As noted his CAT scan of the brain failed to reveal any acute changes. There is consideration for further evaluation of the liver lesions however he has a low platelet count and will need to platelet transfusion if they are to proceed with biopsy studies. The patient otherwise is resting and does seem to be slightly obtunded but arousable. Due to his mild left [facility] [place] [facility] neurology is now been consulted today for further evaluation and recommendations. Review of Systems Constitutional: Denies chills, Denies fever Eyes: denies blurred vision, denies pain Ears, nose, mouth and throat: Denies headache, Denies sore throat Cardiovascular: Denies chest pain, Denies shortness of breath Respiratory: Denies cough Gastrointestinal: Denies abdominal pain, Denies diarrhea, Denies nausea, Denies vomiting Musculoskeletal: Denies myalgias Integumentary: Denies pruritus, Denies rash Neurological: Reports change in mentation, Reports confusion, Reports memory loss, Denies numbness, Denies weakness Psychiatric: Denies anxiety, Denies depression Endocrine: Denies fatigue, Denies weight change Past Medical History Past Medical History: Coronary Artery Disease (CAD), Cancer, Eye Disorder, Hyperlipidemia, Hypertension, Osteoarthritis (OA) Additional Past Medical History / Comment(s): hypotension, partial (bottom) dentures, anemia, colon ca, skin ca History of Any Multi-Drug Resistant Organisms: None Reported Past Surgical History: Adenoidectomy, Appendectomy, Tonsillectomy Additional Past Surgical History / Comment(s): Bilat cataract removal Past Anesthesia/Blood Transfusion Reactions: No Reported Reaction Past Psychological History: No Psychological Hx Reported Smoking Status: Former smoker Past Alcohol Use History: None Reported Past Drug Use History: None Reported - Past Family History Mother History Unknown: Yes Family Medical History: No Reported History Medications and Allergies Home Medications Medication Instructions Recorded Confirmed Type Atenolol [Tenormin] 50 mg PO DAILY 06/20/16 06/20/16 History Folic Acid 1 mg PO DAILY 06/20/16 06/20/16 History Isosorbide Mononitrate ER [Imdur] 30 mg PO DAILY 06/20/16 06/20/16 History Lisinopril [Zestril] 20 mg PO DAILY 06/20/16 06/20/16 History Methotrexate Sodium [Methotrexate] 7.5 mg PO Q7D 06/20/16 06/20/16 History Omeprazole [PriLOSEC] 20 mg PO DAILY 06/20/16 06/20/16 History Pregabalin [Lyrica] 50 mg PO DAILY 06/20/16 06/20/16 History Allergies Allergy/AdvReac Type Severity Reaction Status Date / Time Penicillins Allergy Unknown Verified 06/20/16 16:07 rosuvastatin [From Crestor] Allergy Unknown Verified 06/20/16 16:07 Physical Examination - Vital Signs Vital Signs: Vital Signs Temp Pulse Pulse Resp BP BP Pulse Ox 07/02/16 17:48 92 07/02/16 17:38 92 07/02/16 16:46 99 16 112/57 93 L 07/02/16 15:03 97.9 F 88 16 168/71 98 07/02/16 08:01 97.7 F 98 24 164/70 98 07/01/16 20:35 80 07/01/16 20:28 80 Intake and Output 07/02/16 07/02/16 07/02/16 06:59 14:59 22:59 Intake Total 590 Output Total 4 Balance 590 -4 Intake: Oral 590 Output: Stool 4 Other: Voiding Method Diaper Diaper Diaper # Voids 1 3 1 Weight 60 kg - Constitutional General appearance: average body habitus, cooperative - EENT EENT: PERRL, mucous membranes moist - Respiratory Respiratory: lungs clear, normal breath sounds - Cardiovascular Cardiovascular: regular rate, normal S1, normal S2 Extremities: no peripheral edema bilaterally - Gastrointestinal Gastrointestinal: normoactive bowel sounds - Integumentary Integumentary: normal - Neurologic Cranial nerve examination: PERRL, EOMI, VFF, V1/V2/V3 grossly intact, tongue midline, intact gag reflex, intact corneal reflex, normal palatal elevation Speech examination: intact Sensorimotor examination: intact Motor examination - right side: 4/5: biceps, triceps, wrist flexion, wrist extension, motor equipment sergeant, hip flexors, knee extensors, dorsiflexion, toe extension (EHL) , plantarflexion Motor examination - left side: 4/5: biceps, triceps, wrist flexion, wrist extension, motor equipment sergeant, hip flexors, knee extensors, dorsiflexion, toe extension (EHL) , plantarflexion Detailed sensory examination: intact Reflex and gait examination: intact Reflexes: 1+: ankle, bicep, knee, tricep - Musculoskeletal Musculoskeletal: no pain - Psychiatric Psychiatric: mood/affect appropriate, cooperative Results - Laboratory Findings CBC and BMP: 07/02/16 07:07 07/02/16 07:07 Abnormal Lab Findings: Abnormal Labs 06/20/16 06/20/16 06/21/16 16:46 16:46 05:32 WBC RBC 3.50 L 3.51 L Hgb 10.6 L 10.5 L Hct 32.6 L 32.5 L MCHC RDW 16.4 H 16.3 H Plt Count 100 L 86 L Neutrophils # Neutrophils # (Manual) Lymphocytes # Nucleated RBCs ESR Sodium Potassium Chloride Carbon Dioxide BUN 35 H Creatinine 1.29 H Glucose 109 H POC Glucose (mg/dL) Calcium Phosphorus 4.9 H TIBC Ferritin AST 117 H ALT Alkaline Phosphatase Lactate Dehydrogenase Total Creatine Kinase CK-MB (CK-2) Total Protein Albumin 3.3 L Albumin (PEP) [facility] Screen Free [place] LC, Quant 06/21/16 06/21/16 06/22/16 05:32 05:32 05:58 WBC RBC Hgb Hct MCHC RDW Plt Count Neutrophils # Neutrophils # (Manual) Lymphocytes # Nucleated RBCs ESR Sodium Potassium Chloride Carbon Dioxide BUN 30 H Creatinine Glucose POC Glucose (mg/dL) Calcium Phosphorus TIBC Ferritin AST ALT Alkaline Phosphatase Lactate Dehydrogenase Total Creatine Kinase 254 H CK-MB (CK-2) 2.5 H* Total Protein Albumin Albumin (PEP) [facility] Screen Free [place] LC, Quant 2.48 H 06/22/16 06/22/16 06/22/16 05:58 05:58 05:58 WBC RBC 3.77 L Hgb 11.2 L Hct 35.2 L MCHC RDW 16.4 H Plt Count 70 L Neutrophils # Neutrophils # (Manual) 8.2 H Lymphocytes # Nucleated RBCs ESR 96 H Sodium Potassium Chloride Carbon Dioxide BUN 31 H Creatinine Glucose 142 H POC Glucose (mg/dL) Calcium Phosphorus TIBC 196 L Ferritin 3220 H AST ALT Alkaline Phosphatase Lactate Dehydrogenase 4846 H Total Creatine Kinase CK-MB (CK-2) Total Protein Albumin Albumin (PEP) 3.24 L [facility] Screen POSITIVE H Free [place] LC, Quant 06/22/16 06/22/16 06/22/16 06:10 11:10 16:49 WBC RBC Hgb Hct MCHC RDW Plt Count Neutrophils # Neutrophils # (Manual) Lymphocytes # Nucleated RBCs ESR Sodium Potassium Chloride Carbon Dioxide BUN Creatinine Glucose POC Glucose (mg/dL) 136 H 244 H 167 H Calcium Phosphorus TIBC Ferritin AST ALT Alkaline Phosphatase Lactate Dehydrogenase Total Creatine Kinase CK-MB (CK-2) Total Protein Albumin Albumin (PEP) [facility] Screen Free [place] LC, Quant 06/22/16 06/23/16 06/23/16 20:36 05:33 06:09 WBC 13.9 H RBC 3.50 L Hgb 10.6 L Hct 32.5 L MCHC RDW 16.7 H Plt Count 84 L Neutrophils # 12.1 H Neutrophils # (Manual) Lymphocytes # Nucleated RBCs ESR Sodium Potassium Chloride Carbon Dioxide BUN Creatinine Glucose POC Glucose (mg/dL) 160 H 121 H Calcium Phosphorus TIBC Ferritin AST ALT Alkaline Phosphatase Lactate Dehydrogenase Total Creatine Kinase CK-MB (CK-2) Total Protein Albumin Albumin (PEP) [facility] Screen Free [place] LC, Quant 06/23/16 06/23/16 06/23/16 06:09 11:17 16:25 WBC RBC Hgb Hct MCHC RDW Plt Count Neutrophils # Neutrophils # (Manual) Lymphocytes # Nucleated RBCs ESR Sodium Potassium Chloride Carbon Dioxide BUN 42 H Creatinine Glucose 119 H POC Glucose (mg/dL) 148 H 204 H Calcium Phosphorus TIBC Ferritin AST ALT Alkaline Phosphatase Lactate Dehydrogenase Total Creatine Kinase CK-MB (CK-2) Total Protein Albumin Albumin (PEP) [facility] Screen Free [place] LC, Quant 06/23/16 06/24/16 06/24/16 20:24 05:46 06:05 WBC 14.6 H RBC 3.84 L Hgb 11.4 L Hct 35.0 L MCHC RDW 16.9 H Plt Count 61 L Neutrophils # Neutrophils # (Manual) 12.8 H Lymphocytes # Nucleated RBCs 1 H ESR Sodium Potassium Chloride Carbon Dioxide BUN Creatinine Glucose POC Glucose (mg/dL) 176 H 138 H Calcium Phosphorus TIBC Ferritin AST ALT Alkaline Phosphatase Lactate Dehydrogenase Total Creatine Kinase CK-MB (CK-2) Total Protein Albumin Albumin (PEP) [facility] Screen Free [place] LC, Quant 06/24/16 06/24/16 06/24/16 06:05 11:33 16:37 WBC RBC Hgb Hct MCHC RDW Plt Count Neutrophils # Neutrophils # (Manual) Lymphocytes # Nucleated RBCs ESR Sodium Potassium 5.6 H Chloride Carbon Dioxide BUN 47 H Creatinine Glucose 107 H POC Glucose (mg/dL) 152 H 123 H Calcium 10.4 H Phosphorus TIBC Ferritin AST ALT Alkaline Phosphatase Lactate Dehydrogenase Total Creatine Kinase CK-MB (CK-2) Total Protein Albumin Albumin (PEP) [facility] Screen Free [place] LC, Quant 06/24/16 06/25/16 06/25/16 20:22 05:39 05:39 WBC 13.0 H RBC 3.50 L Hgb 10.3 L Hct 33.4 L MCHC 30.7 L RDW 16.4 H Plt Count 87 L Neutrophils # 11.2 H Neutrophils # (Manual) Lymphocytes # Nucleated RBCs ESR Sodium Potassium Chloride Carbon Dioxide BUN 50 H Creatinine Glucose 199 H POC Glucose (mg/dL) 141 H Calcium Phosphorus TIBC Ferritin AST ALT Alkaline Phosphatase Lactate Dehydrogenase Total Creatine Kinase CK-MB (CK-2) Total Protein Albumin Albumin (PEP) [facility] Screen Free [place] LC, Quant 06/25/16 06/25/16 06/25/16 06:19 11:18 16:39 WBC RBC Hgb Hct MCHC RDW Plt Count Neutrophils # Neutrophils # (Manual) Lymphocytes # Nucleated RBCs ESR Sodium Potassium Chloride Carbon Dioxide BUN Creatinine Glucose POC Glucose (mg/dL) 239 H 125 H 153 H Calcium Phosphorus TIBC Ferritin AST ALT Alkaline Phosphatase Lactate Dehydrogenase Total Creatine Kinase CK-MB (CK-2) Total Protein Albumin Albumin (PEP) [facility] Screen Free [place] LC, Quant 06/25/16 06/26/16 06/26/16 21:16 07:07 10:02 WBC RBC Hgb Hct MCHC RDW Plt Count Neutrophils # Neutrophils # (Manual) Lymphocytes # Nucleated RBCs ESR Sodium Potassium Chloride Carbon Dioxide BUN 57 H Creatinine Glucose 136 H POC Glucose (mg/dL) 188 H 128 H Calcium Phosphorus TIBC Ferritin AST ALT Alkaline Phosphatase Lactate Dehydrogenase Total Creatine Kinase CK-MB (CK-2) Total Protein Albumin Albumin (PEP) [facility] Screen Free [place] LC, Quant 06/26/16 06/26/16 06/27/16 17:11 20:13 07:27 WBC RBC Hgb Hct MCHC RDW Plt Count Neutrophils # Neutrophils # (Manual) Lymphocytes # Nucleated RBCs ESR Sodium Potassium Chloride Carbon Dioxide BUN Creatinine Glucose POC Glucose (mg/dL) 138 H 146 H 128 H Calcium Phosphorus TIBC Ferritin AST ALT Alkaline Phosphatase Lactate Dehydrogenase Total Creatine Kinase CK-MB (CK-2) Total Protein Albumin Albumin (PEP) [facility] Screen Free [place] LC, Quant 06/27/16 06/27/16 06/27/16 11:20 16:59 20:27 WBC RBC Hgb Hct MCHC RDW Plt Count Neutrophils # Neutrophils # (Manual) Lymphocytes # Nucleated RBCs ESR Sodium Potassium Chloride Carbon Dioxide BUN Creatinine Glucose POC Glucose (mg/dL) 141 H 157 H 146 H Calcium Phosphorus TIBC Ferritin AST ALT Alkaline Phosphatase Lactate Dehydrogenase Total Creatine Kinase CK-MB (CK-2) Total Protein Albumin Albumin (PEP) [facility] Screen Free [place] LC, Quant 06/28/16 06/28/16 06/28/16 07:02 11:54 16:59 WBC RBC Hgb Hct MCHC RDW Plt Count Neutrophils # Neutrophils # (Manual) Lymphocytes # Nucleated RBCs ESR Sodium Potassium Chloride Carbon Dioxide BUN Creatinine Glucose POC Glucose (mg/dL) 124 H 129 H 129 H Calcium Phosphorus TIBC Ferritin AST ALT Alkaline Phosphatase Lactate Dehydrogenase Total Creatine Kinase CK-MB (CK-2) Total Protein Albumin Albumin (PEP) [facility] Screen Free [place] LC, Quant 06/28/16 06/29/16 06/29/16 20:33 07:17 07:17 WBC 12.2 H RBC 3.31 L Hgb 9.8 L Hct 30.5 L MCHC RDW 17.8 H Plt Count 58 L Neutrophils # Neutrophils # (Manual) Lymphocytes # Nucleated RBCs ESR Sodium Potassium 5.2 H Chloride Carbon Dioxide BUN 112 H* Creatinine 1.65 H Glucose 117 H POC Glucose (mg/dL) 165 H Calcium Phosphorus TIBC Ferritin AST ALT Alkaline Phosphatase Lactate Dehydrogenase Total Creatine Kinase CK-MB (CK-2) Total Protein Albumin Albumin (PEP) [facility] Screen Free [place] LC, Quant 06/29/16 06/29/16 06/30/16 07:36 11:36 07:04 WBC RBC Hgb Hct MCHC RDW Plt Count Neutrophils # Neutrophils # (Manual) Lymphocytes # Nucleated RBCs ESR Sodium Potassium 5.2 H Chloride 108 H Carbon Dioxide 20 L BUN 123 H* Creatinine 1.72 H Glucose POC Glucose (mg/dL) 136 H 111 H Calcium 8.2 L Phosphorus TIBC Ferritin AST 178 H ALT 76 H Alkaline Phosphatase 174 H Lactate Dehydrogenase Total Creatine Kinase CK-MB (CK-2) Total Protein 5.1 L Albumin 2.4 L Albumin (PEP) [facility] Screen Free [place] LC, Quant 06/30/16 06/30/16 07/01/16 11:32 12:28 17:54 WBC 3.5 L RBC 3.13 L Hgb 9.3 L Hct 29.1 L MCHC RDW 18.0 H Plt Count 53 L 43 L* Neutrophils # Neutrophils # (Manual) Lymphocytes # 0.5 L Nucleated RBCs ESR Sodium Potassium Chloride Carbon Dioxide BUN Creatinine Glucose POC Glucose (mg/dL) 126 H Calcium Phosphorus TIBC Ferritin AST ALT Alkaline Phosphatase Lactate Dehydrogenase Total Creatine Kinase CK-MB (CK-2) Total Protein Albumin Albumin (PEP) [facility] Screen Free [place] LC, Quant 07/01/16 07/01/16 07/02/16 17:54 21:12 07:07 WBC RBC Hgb Hct MCHC RDW Plt Count Neutrophils # Neutrophils # (Manual) Lymphocytes # Nucleated RBCs ESR Sodium 147 H 154 H Potassium Chloride 118 H 123 H* Carbon Dioxide 16 L 20 L BUN 91 H* 72 H Creatinine Glucose 141 H 108 H POC Glucose (mg/dL) 134 H Calcium 7.8 L Phosphorus TIBC Ferritin AST 124 H ALT Alkaline Phosphatase 162 H Lactate Dehydrogenase Total Creatine Kinase CK-MB (CK-2) Total Protein 5.3 L Albumin 2.5 L Albumin (PEP) [facility] Screen Free [place] LC, Quant 07/02/16 07:07 WBC 2.7 L RBC 3.29 L Hgb 9.8 L Hct 30.5 L MCHC RDW 18.0 H Plt Count 48 L* Neutrophils # Neutrophils # (Manual) Lymphocytes # 0.6 L Nucleated RBCs ESR Sodium Potassium Chloride Carbon Dioxide BUN Creatinine Glucose POC Glucose (mg/dL) Calcium Phosphorus TIBC Ferritin AST ALT Alkaline Phosphatase Lactate Dehydrogenase Total Creatine Kinase CK-MB (CK-2) Total Protein Albumin Albumin (PEP) [facility] Screen Free [place] LC, Quant Assessment and Plan (1) Metabolic encephalopathy Status: Acute Code(s): G93.41 - METABOLIC ENCEPHALOPATHY (2) Pleural effusion Status: Acute Code(s): J90 - PLEURAL EFFUSION, NOT ELSEWHERE CLASSIFIED (3) Acute kidney injury Status: Acute Code(s): N17.9 - ACUTE KIDNEY FAILURE, UNSPECIFIED (4) History of colon cancer Status: Acute Code(s): Z85.038 - PERSONAL HISTORY OF MALIGNANT NEOPLASM OF LARGE INTESTINE Plan: This patient is a 85-year-old right-handed white male who was initially admitted to the hospital for treatment of acute respiratory failure secondary to a large left-sided pleural effusion. Patient was treated for this condition and underwent a thoracentesis. Pulmonary medicine is following this up closely. Cytologies indicating possible atypical cells. Patient underwent ultrasound of the liver yesterday which also reveals multiple lesions. Patient is being evaluated for possible metastatic disease. Neurology was consult today due to altered mental status. His neurological examination today is nonfocal. He does have evidence of mild confusion. He underwent computed tomography scan of the brain yesterday which revealed no acute changes. He is scheduled to have MRI of the brain done later this evening. His neurological examination is nonfocal at this time. His uncle history is suggestive of a diffuse metabolic encephalopathy. We will await the results of his MRI of the brain to rule out any metastatic lesions. Hematology oncology is going to discuss his overall condition in detail with family members tomorrow for further assessment. Family may be considering comfort care measures for this patient. His overall prognosis at this time remains very guarded. Time with Patient: Greater than 30
--- NOTE | 2016-07-02 20:06 | PN ---
Patient is seen for followup for acute kidney injury. Patient's serum creatinine has improved from 1.7 on 06/30/2016 to 1.0 mg/dL now. His sodium, however, has increased to 154. According to nursing staff, he has not been eating or drinking much. On examination, blood pressure is 112/57, heart rate 99 per minute. He is afebrile. EXAMINATION OF THE HEART: S1 and S2. EXAMINATION OF THE LUNGS: Decreased breath sounds in the bases. ABDOMEN: Soft, nontender. Examination of the lower extremities shows no significant edema. Labs show sodium 154, potassium 4.5; BUN 72, serum creatinine 1.04. ASSESSMENT: 1. Acute kidney injury, prerenal, currently improved. 2. Hypernatremia. Will start D5W. 3. History of colon cancer. 4. Mediastinal and hilar lymphadenopathy; not a candidate for diagnostic bronchoscopy. PLAN: Maintain patient on D5W, as he does not have significant oral intake. Repeat labs in a.m.
--- NOTE | 2016-07-02 22:33 | MR ---
EXAMINATION TYPE: MR brain wo con DATE OF EXAM: 07/02/2016 7:35 PM COMPARISON: CT 07/01/2016 HISTORY: 85-year-old male with altered mental status TECHNIQUE: Multiplanar, multisequence images of the brain and brainstem were acquired without IV con trast. Fast brain protocol was utilized. Diffusion weighted imaging is performed. FINDINGS: No evidence for acute infarction, hemorrhage, mass, mass effect, midline shift, herniation, effacemen t of basal cisterns, or extra-axial fluid collection. There is moderate to severe generalized atrophy and secondary mild ventriculomegaly. T2/FLAIR weighted sequences show patchy and confluent moderate right white matter change in both cere bral hemispheres. Major intracranial flow voids appear grossly intact allowing for fast brain protocol. Midline structures demonstrate normal morphology. The craniocervical junction is normal. The visualized sinuses are clear and the globes are intact. T2 hyperintense lesion involving the lef t frontal vertex probably prominent venous hinds or calvarial hemangioma. IMPRESSION: 1. No acute intracranial abnormality seen. 2. Moderate to severe generalized atrophy and secondary mild ventriculomegaly. 3. Patchy and confluent bright white matter change in both cerebral hemispheres likely due to moderat e to severe burden of chronic small vessel ischemic disease.
[2016-07-03] MEDS: IPRATROPIUM-ALBUTEROL 3 ML NEB INHALATION SCH ×4 (07:22→20:33)
[2016-07-03] MEDS: FAMOTIDINE 20 MG TAB PO SCH ×2 (08:44→21:23)
[2016-07-03] MEDS: DOCUSATE 100 MG CAP PO SCH ×2 (08:44→21:16)
[2016-07-03] MEDS: ATENOLOL 50 MG TAB PO SCH (08:44)
[2016-07-03] MEDS: predniSONE 20 MG TAB PO SCH (08:45)
[2016-07-03] MEDS: FOLIC ACID 1 MG TAB PO SCH (08:45)
[2016-07-03] MEDS: ISOSORBIDE MONONITRATE ER 30 MG TAB.ER.24H PO SCH (08:45)
[2016-07-03] MEDS: PREGABALIN 50 MG CAP PO SCH ×2 (08:45→21:16)
[2016-07-03 09:10] LABS: INR 1.1 (<1.1); Prothrombin Time 10.9 sec (9.0-12.0)
[2016-07-03 09:11] LABS: Anisocytosis Slight; Basophils % (A) 0 %; CH 28.8; Eosinophils # (A) 0.1 k/uL (0-0.7); Eosinophils % (A) 1 %; HCT 26.7 % (39.0-53.0); HDW 3.15; Hypochromasia Moderate; Luc # (Auto) 0.03; Luc % (Auto) 1; Lymphocytes # (A) 0.7 k/uL (1.0-4.8); Lymphocytes % (A) 19 %; MCH 29.2 pg (25.0-35.0); MCHC 31.2 g/dL (31.0-37.0); MCV 93.7 fL (80.0-100.0); Monocytes # (A) 0.1 k/uL (0-1.0); Monocytes % (A) 4 %; Neutrophils # (A) 2.6 k/uL (1.3-7.7); Neutrophils % (A) 75 %; RBC 2.85 m/uL (4.30-5.90); WBC 3.5 k/uL (3.8-10.6); WBC (Perox) 3.63
[2016-07-03 09:23] LABS: Anion Gap 10 mmol/L; Blood Urea Nitrogen 52 mg/dL (9-20); Calcium 8.3 mg/dL (8.4-10.2); Carbon Dioxide 18 mmol/L (22-30); Glucose 184 mg/dL (74-99); Non-African American GFR(MDRD) >60 (>60 ml/min/1.73 sqM); Potassium 3.9 mmol/L (3.5-5.1); Sodium 149 mmol/L (137-145)
[2016-07-03 09:24] LABS: Chloride 121 mmol/L (98-107)
[2016-07-03 09:44] LABS: HGB 8.3 gm/dL (13.0-17.5)
--- NOTE | 2016-07-03 12:31 | P.PN ---
Subjective The pt remains very weak. He is progressively becoming more lethargic. He is moving hsi bowels and abdominal distension has improved. Respiratory status is stable, with persistent , significant SOB on exertion Objective - Vital Signs Vital signs: Vital Signs Temp 98.0 F 07/03/16 08:25 Pulse 83 07/03/16 08:25 Resp 20 07/03/16 08:25 BP 163/72 07/03/16 08:25 Pulse Ox 100 07/03/16 08:25 Intake & Output 07/02/16 07/03/16 07/03/16 18:59 06:59 18:59 Intake Total 50 Output Total 4 Balance -4 50 Weight 61.5 kg Intake: Oral 50 Output: Stool 4 Other: Voiding Method Diaper Diaper Diaper # Voids 1 1 - Constitutional General appearance: Present: no acute distress - EENT Eyes: Present: PERRLA ENT: Present: hearing grossly normal, normal oropharynx - Respiratory Respiratory: bilateral: diminished - Cardiovascular Rhythm: regular Heart sounds: normal: S1, S2 - Gastrointestinal General gastrointestinal: Present: soft - Integumentary Integumentary: Present: normal - Neurologic Neurologic Comment(s): Very lethargic. Arousable, but drifts off to sleep intermittently Neurologic: Present: CNII-XII intact - Musculoskeletal Musculoskeletal: Present: generalized weakness - Psychiatric Psychiatric Comment(s): Mildly confused - Labs CBC & Chem 7: 07/03/16 08:46 07/03/16 08:52 Labs: Abnormal Lab Results - Last 24 Hours (Table) 07/03/16 07/03/16 Range/Units 08:46 08:52 WBC 3.5 L (3.8-10.6) k/uL RBC 2.85 L (4.30-5.90) m/uL Hgb 8.3 L D (13.0-17.5) gm/dL Hct 26.7 L (39.0-53.0) % RDW 18.0 H (11.5-15.5) % Plt Count 46 L* (150-450) k/uL Lymphocytes # 0.7 L (1.0-4.8) k/uL Sodium 149 H (137-145) mmol/L Chloride 121 H* (98-107) mmol/L Carbon Dioxide 18 L (22-30) mmol/L BUN 52 H (9-20) mg/dL Glucose 184 H (74-99) mg/dL Calcium 8.3 L (8.4-10.2) mg/dL Assessment and Plan (1) Pleural effusion Narrative/Plan: Clinically there does not appear to be significant recurrence. He remains very SOB, however Status: Acute (2) History of colon cancer Status: Acute (3) Bicytopenia Narrative/Plan: This has been progressive with plt now < 50K. The pt is now pancytopenic. No obvious bleeding noted Status: Acute (4) Lymphadenopathy Status: Acute (5) Metastatic cancer Narrative/Plan: At this time, we do not have a tissue diagnosis and thus a known primary. However, a metastatic cancer, aggressive in behaviour , is more likely , given the clinical picture of progressive cytopenias, increasing liver enzymes, more obvious liver mets on imaging, and his general decline. The family had questions re a liver biopsy. This could provide a diagnosis, but in my opinion, this would be of academic interest only, as the pt is not a candidate for any aggressive therapy at this time. Treatment in any case, would most likely have been palliative in intent. In addition, the liver biopsy would carry increased risk of bleeding due to low plt , and diffuse liver involvement. For similiar reasons, it had been decided not to pursue a tissue diagnosis with a bronchoscopy, at out previous meeting. Therefore, currently, I would be not recommend a liver biopsy, as it would not change manangement. In addition, given his decline, it is unlikely that he would be able to perform PT and benefit from rehab. Thus comfort care was discussed with the family also At this time, they seem to be in agreement overall to not pursue the biopsy, as well to consider comfort care. They will make a final decision shortly. If they are in agreement with comfort care, a hospice consult will be placed Status: Acute
--- NOTE | 2016-07-03 13:20 | PN ---
Patient is seen for followup for acute kidney injury and hypernatremia. He was started on D5W yesterday for hypernatremia. His sodium has improved. Renal function has significantly improved with creatinine now at 0.86 from 1.72 on 06/30/2016. Family is present at bedside and they have decided to proceed with hospice care. On examination, blood pressure is 163/72, heart rate 83 per minute. He is afebrile. EXAMINATION OF THE HEART: S1 and S2. EXAMINATION OF THE LUNGS: Decreased breath sounds at the bases. ABDOMEN: Soft, nontender. Examination of the lower extremities shows trace edema bilaterally. 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 Labs shows sodium 149, potassium 3.9, serum creatinine 0.86. Hemoglobin at 8.3 g/dL. ASSESSMENT: 1. Acute kidney injury, prerenal, currently improved. 2. Hypernatremia, improved with D5W. 3. Anemia, multifactorial. 4. History of colon cancer with metastasis. PLAN: Continue D5W. Continue to encourage increased oral intake.
--- NOTE | 2016-07-03 19:00 | P.PN ---
Subjective This patient is a 85 year old male being evaluated for possible encephalopathy. Patient was seen in neurology consultation yesterday and was noted to be lethargic. He continues to be lethargic even today. He was sent for MRI of the brain yesterday the results of which were noted today. MRI indicates no acute intracranial abnormality. There was moderate to severe generalized atrophy with mild ventriculomegaly. White matter ischemic changes were noted. The patient remains very lethargic. The patient was seen today by the oncologist Dr. Comer with family members. His impression is that the patient does not have a tissue diagnosis and thus unknown primary source for possible metastatic disease. His clinical decline suggest an aggressive cancer with metastatic lesions to the liver. Dr. Comer had a long discussion with the family and they are not going to pursue a liver biopsy at this time given the patient' s age and risk of bleeding. The family is going to consider comfort care measures and possible hospice consult. The patient remains very lethargic. He did have a routine EEG today which was reviewed and is consistent with a moderate to severe degree of encephalopathy. There was no seizure focus noted. All of these results were discussed today with family members at bedside. This patient's overall prognosis remains very guarded. Objective - Vital Signs Vital signs: Vital Signs Temp 97.5 F L 07/03/16 15:35 Pulse 81 07/03/16 15:35 Resp 20 07/03/16 15:35 BP 172/75 07/03/16 15:35 Pulse Ox 96 07/03/16 15:35 Intake & Output 07/02/16 07/03/16 07/03/16 18:59 06:59 18:59 Intake Total 50 Output Total 4 Balance -4 50 Weight 61.5 kg 61.5 kg Intake: Oral 50 Output: Stool 4 Other: Voiding Method Diaper Diaper Diaper # Voids 1 1 - Exam Physical examination: PHYSICAL EXAMINATION: Patient is resting comfortably in bed. VITAL SIGNS: Blood pressure is [172/75]. Heart rate is [81]. Respiration is [20] . Temperature is [97.5]. HEENT: Head is atraumatic, neck is supple, there were no carotid bruits. CHEST: Lungs are clear to auscultation and percussion. CARDIAC: S1, S2 normal rate and rhythm. There is no murmur. ABDOMEN: Soft and nontender. Bowel sounds are present. EXTREMITIES: There is no pedal edema. Peripheral pulses are present. Neurological examination: Patient remains stuporous. He arouses to sternal rub but does not follow commands. He remains encephalopathic. - Labs CBC & Chem 7: 07/03/16 08:46 07/03/16 08:52 Labs: Abnormal Lab Results - Last 24 Hours (Table) 07/03/16 07/03/16 Range/Units 08:46 08:52 WBC 3.5 L (3.8-10.6) k/uL RBC 2.85 L (4.30-5.90) m/uL Hgb 8.3 L D (13.0-17.5) gm/dL Hct 26.7 L (39.0-53.0) % RDW 18.0 H (11.5-15.5) % Plt Count 46 L* (150-450) k/uL Lymphocytes # 0.7 L (1.0-4.8) k/uL Sodium 149 H (137-145) mmol/L Chloride 121 H* (98-107) mmol/L Carbon Dioxide 18 L (22-30) mmol/L BUN 52 H (9-20) mg/dL Glucose 184 H (74-99) mg/dL Calcium 8.3 L (8.4-10.2) mg/dL Assessment and Plan (1) Metabolic encephalopathy Status: Acute Code(s): G93.41 - METABOLIC ENCEPHALOPATHY (2) Pleural effusion Status: Acute Code(s): J90 - PLEURAL EFFUSION, NOT ELSEWHERE CLASSIFIED (3) Acute kidney injury Status: Acute Code(s): N17.9 - ACUTE KIDNEY FAILURE, UNSPECIFIED (4) History of colon cancer Status: Acute Code(s): Z85.038 - PERSONAL HISTORY OF MALIGNANT NEOPLASM OF LARGE INTESTINE Plan: This patient is a 85-year-old male who was seen in neurology consultation yesterday for altered mental status and lethargy. He underwent an MRI of the brain yesterday the results of which are noted above. The patient likely has some aggressive underlying cancer with metastatic lesions to the liver. Primary still is unknown as per the findings of Dr. Comer from oncology. He likely has metastatic lesions to the liver. Dr. Comer had a long discussion today with the family members. They're going to consider comfort care measures for this patient given his elderly age and risk of proceeding with any further aggressive therapy. We did review the results of his MRI and EEG today with the family in detail. His overall prognosis at this time remains very guarded. We will continue to monitor this patient's progress closely during this admission.
[2016-07-04 07:39] LABS: Anisocytosis Slight; CH 29.1; CHCM 32.1; HCT 25.4 % (39.0-53.0); HDW 3.31; HGB 8.2 gm/dL (13.0-17.5); Hypochromasia Slight; Immature Gran Flag Moderate; MCH 29.3 pg (25.0-35.0); MCHC 32.1 g/dL (31.0-37.0); MCV 91.2 fL (80.0-100.0); Mean Platelet Volume 8.2; RBC 2.79 m/uL (4.30-5.90); WBC 6.1 k/uL (3.8-10.6); WBC (Perox) 5.93
[2016-07-04] MEDS: DOCUSATE 100 MG CAP PO SCH ×3 (07:56→22:03)
[2016-07-04] MEDS: ATENOLOL 50 MG TAB PO SCH (07:56)
[2016-07-04] MEDS: FAMOTIDINE 20 MG TAB PO SCH ×2 (07:57→22:03)
[2016-07-04] MEDS: ISOSORBIDE MONONITRATE ER 30 MG TAB.ER.24H PO SCH (07:57)
[2016-07-04] MEDS: predniSONE 20 MG TAB PO SCH (07:57)
[2016-07-04] MEDS: PREGABALIN 50 MG CAP PO SCH ×2 (07:57→22:03)
[2016-07-04] MEDS: FOLIC ACID 1 MG TAB PO SCH (07:57)
[2016-07-04 08:08] LABS: Add Differential Manual Differential
[2016-07-04 08:10] LABS: Manual Review Performed; Nucleated Red Blood Cells 0 /100 WBC (0-0); Total Cells Counted 100
[2016-07-04 08:11] LABS: Hypersegmented Neutrophils Present
--- NOTE | 2016-07-04 08:16 | EEG ---
DATE OF SERVICE: 07/03/[address] Villa. INTERPRETING PHYSICIAN: Dr. Cassy Salvador. INDICATIONS FOR EXAMINATION: This patient is an 85-year-old male admitted for altered mental status and confusion. Patient with possible metastatic disease to the liver. AGE: 85Y EEG FINDINGS: A routine 21-channel, awake digital EEG recording was accomplished utilizing the 10 to 20 international system with bipolar and referential montages. The background activity in the most alert resting state consists of a low amplitude poorly developed and poorly sustained 4 to 5 Hz activity over the posterior head regions. This posterior rhythm attenuates minimally to eye opening. There is a small amount of low amplitude 18 to 20 Hz beta activity seen maximally over the anterior head regions. Muscle and movement artifact was observed on a few occasions during the tracing. Hyperventilation was not performed. Photic stimulation at flash frequencies of 2 to 30 Hz produced a minimal occipital driving response. No epileptiform discharges were seen. IMPRESSION: This EEG gives evidence of a severe widespread diffuse disturbance in cerebral function. The EEG failed to reveal any focal, lateralized or epileptiform abnormalities. If clinically indicated, a follow-up EEG is recommended. Clinical correlation is recommended.
[2016-07-04] MEDS: IPRATROPIUM-ALBUTEROL 3 ML NEB INHALATION SCH ×4 (09:44→19:29)
--- NOTE | 2016-07-04 12:58 | P.DS ---
Providers Date of admission: 06/20/16 15:46 Expected date of discharge: 07/04/16 Attending physician: Rochelle Villa Consults: 06/20/16 15:53 Consult Physician Routine Consulting Provider: Francis Estrada Consult Reason/Comments: pl effusion Do you want consulting provider notified?: Yes 06/20/16 15:54 Consult Physician Routine Consulting Provider: Saurav Comer Consult Reason/Comments: malignancy Do you want consulting provider notified?: Yes 06/30/16 12:53 Consult Physician Routine Consulting Provider: Armen Fabian Consult Reason/Comments: renal failure Do you want consulting provider notified?: Yes 07/02/16 09:55 Consult Physician Routine Consulting Provider: Cassy Salvador Consult Reason/Comments: altered mental status Do you want consulting provider notified?: Yes Primary care physician: Stated None Hospital Course: Final Diagnoses: 1. [Left sided pleural effusion, status post thoracentesis, the patient with retroperitoneal lymphadenopathy]. 2. [History of colon CA]. 3. [Acute renal failure with prerenal azotemia secondary to severe intravascular depletion, worsening]. 4. [Hyperkalemia secondary to renal failure and BERNIE inhibitor]. 5. [Acute hypoxic respiratory failure secondary to left-sided pleural effusion, improved post thoracentesis]. 6. [Generalized deconditioning]. 7. [Hypertension]. 8. Hyperlipidemia. 9. Mediastinal and hilar lymphadenopathy, rule out malignancy. Not a candidate for diagnostic bronchoscopy per pulmonary 10. Metastatic cancer ,Multiple vague liver lesions, Liver metastasis per liver ultrasound. 11. Hyperchloremic 12. Hypernatremia 13. Bicytopenia 14. No code, no CPR, no intubation Hospital course:This 85-year-old gentleman admitted with acute respiratory failure secondary to large left-sided pleural effusion status post thoracentesis and multiple other medical issues. Evaluated by pulmonary, oncology, nephrology, and neurology. Pleural cytology atypical cells nondiagnostic of malignancy Liver ultrasound reporting liver metastasis. Liver biopsy unable to be performed secondary to thrombocytopenia. Family met with Dr. Comer , Prognosis poor given his impression of aggressive cancer with metastatic lesions to the liver. Comfort care/hospice recommended. Patient is being discharged to [facility] with poor prognosis. Family will discuss/meet with hospice at the [facility]. Patient Condition at Discharge: Stable Plan - Discharge Summary New Discharge Prescriptions: traMADol HCl [Ultram] 50 mg PO Q6H PRN #20 tab PRN Reason: Moderate Pain Discharge Medication List Atenolol [Tenormin] 50 mg PO DAILY 06/20/16 [History] Folic Acid 1 mg PO DAILY 06/20/16 [History] Isosorbide Mononitrate ER [Imdur] 30 mg PO DAILY 06/20/16 [History] Omeprazole [PriLOSEC] 20 mg PO DAILY 06/20/16 [History] Pregabalin [Lyrica] 50 mg PO DAILY 06/20/16 [History] Docusate [Colace] 200 mg PO BID cap 07/04/16 [Rx] Ipratropium-Albuterol Nebulize [Duoneb 0.5 mg-3 mg/3 ml Soln] 3 ml INHALATION RT -QID ampul.neb 07/04/16 [Rx] Melatonin 3 mg PO HS PRN #0 tablet 07/04/16 [Rx] Polyethylene Glycol 3350 [Miralax] 17 gm PO DAILY PRN #0 powd.pack 07/04/16 [Rx] SILVER sulfADIAZINE CREAM [Silvadene Cream] 1 applic TOPICAL BID applic [Rx] traMADol HCl [Ultram] 50 mg PO Q6H PRN #20 tab 07/04/16 [Rx] Follow up Appointment(s)/Referral(s): Saurav Comer MD [STAFF PHYSICIAN] - 1 Week Alcon Bedolla MD [STAFF PHYSICIAN] - 3 Days Activity/Diet/Wound Care/Special Instructions: Family will discuss option of hospice at [facility] Methotrexate as per Dr. Comer regarding his discussion with family Discharge Disposition: TRANSFER TO SNF/ECF
--- NOTE | 2016-07-04 15:34 | P.PN ---
Subjective This patient is a 85 year old male being evaluated for possible encephalopathy. Patient was seen in neurology consultation yesterday and was noted to be lethargic. He continues to be lethargic even today. He was sent for MRI of the brain yesterday the results of which were noted today. MRI indicates no acute intracranial abnormality. There was moderate to severe generalized atrophy with mild ventriculomegaly. White matter ischemic changes were noted. The patient remains very lethargic. The patient was seen today by the oncologist Dr. Comer with family members. His impression is that the patient does not have a tissue diagnosis and thus unknown primary source for possible metastatic disease. His clinical decline suggest an aggressive cancer with metastatic lesions to the liver. Dr. Cmoer had a long discussion with the family and they are not going to pursue a liver biopsy at this time given the patient' s age and risk of bleeding. The family is going to consider comfort care measures and possible hospice consult. The patient remains very lethargic. He did have a routine EEG today which was reviewed and is consistent with a moderate to severe degree of encephalopathy. There was no seizure focus noted. All of these results were discussed today with family members at bedside. The family had a discussion with Dr. Comer yesterday. Plan is to move forward with comfort care measures and hospice evaluation. Patient is going to be discharged to [facility] the [facility] with a poor prognosis. Due to the advanced and aggressive nature of his cancer Dr. Comer feels there is no further treatments that can be provided for this patient at this time. Family is aware of his poor prognosis. Plans are being made to have him discharged to [facility] the [facility] possibly today if a bed is available. This patient's overall prognosis remains very guarded. Objective - Vital Signs Vital signs: Vital Signs Temp 97.7 F 07/04/16 07:00 Pulse 82 07/04/16 08:00 Resp 18 07/04/16 08:00 BP 157/65 07/04/16 07:00 Pulse Ox 96 07/04/16 07:00 Intake & Output 07/03/16 07/04/16 07/04/16 18:59 06:59 18:59 Intake Total 1100 325 Output Total 150 Balance 1100 175 Weight 61.5 kg 61 kg Intake: Intake, IV Titration 900 Amount Dextrose 5% in Water 1, 900 000 ml @ 75 mls/hr IV . [id number] ONE Rx#:[id number] Oral 200 325 Output: Urine 150 Other: Voiding Method Diaper Urinal Urinal Diaper Diaper Incontinent Incontinent # Voids 1 1 3 - Exam Physical examination: PHYSICAL EXAMINATION: Patient is resting comfortably in bed. VITAL SIGNS: Blood pressure is [157/65]. Heart rate is [82]. Respiration is [20] . Temperature is [97.7]. HEENT: Head is atraumatic, neck is supple, there were no carotid bruits. CHEST: Lungs are clear to auscultation and percussion. CARDIAC: S1, S2 normal rate and rhythm. There is no murmur. ABDOMEN: Soft and nontender. Bowel sounds are present. EXTREMITIES: There is no pedal edema. Peripheral pulses are present. Neurological examination: Patient remains stuporous. He arouses to sternal rub but does not follow commands. He remains encephalopathic. - Labs CBC & Chem 7: 07/04/16 06:55 07/03/16 08:52 Labs: Abnormal Lab Results - Last 24 Hours (Table) 07/04/16 Range/Units 06:55 RBC 2.79 L (4.30-5.90) m/uL Hgb 8.2 L (13.0-17.5) gm/dL Hct 25.4 L (39.0-53.0) % RDW 18.0 H (11.5-15.5) % Plt Count 38 L* (150-450) k/uL Lymphocytes # (Manual) 0.7 L (1.0-4.8) k/uL Assessment and Plan (1) Metabolic encephalopathy Status: Acute Code(s): G93.41 - METABOLIC ENCEPHALOPATHY (2) Pleural effusion Status: Acute Code(s): J90 - PLEURAL EFFUSION, NOT ELSEWHERE CLASSIFIED (3) Acute kidney injury Status: Acute Code(s): N17.9 - ACUTE KIDNEY FAILURE, UNSPECIFIED (4) History of colon cancer Status: Acute Code(s): Z85.038 - PERSONAL HISTORY OF MALIGNANT NEOPLASM OF LARGE INTESTINE Plan: This patient is a 85-year-old male initially admitted with acute respiratory failure with a large left-sided pleural effusion. Patient underwent thoracentesis and cytology revealed atypical cells. Ultrasound of the liver revealed what appeared to be metastatic lesions to the liver. Due to the aggressive nature of his probable cancer discussion was arranged with the family members and the patient. Dr. Comer had a long discussion with the family yesterday and he has been cleared for discharge to the [facility] the [facility] for comfort care measures and possible hospice consultation. Dr. Comer feels his prognosis is very poor given the aggressive nature of his underlying cancer with metastatic lesions to the liver. MRI of the brain failed to reveal any evidence of metastatic lesions to the brain. Neurologically he remains encephalopathic and weak. We will continue close neurological follow-up for this patient as needed. His overall long-term prognosis at this time remains very guarded.
--- NOTE | 2016-07-04 16:33 | P.PN ---
Subjective Date of service 07/03/2016 Progress note dictated for Dr. Aguirre Interval history: This 85-year-old gentleman admitted with acute respiratory failure secondary to large left-sided pleural effusion status post thoracentesis and multiple other medical issues. Electrolytes and Renal function improving. MRI reporting no acute intracranial abnormality moderate to severe generalized atrophy and secondary mild ventriculomegaly, patchy and confluent moderate right white matter change in both cerebral hemispheres, chronic small vessel ischemic disease. Evaluated by neurology with workup in progress, recommendations noted. Family met with oncology this morning, recommendations are for comfort care with hospice. Platelets 46. Family discussing potential liver biopsy. Yesterday interventional radiologist canceled the biopsy due to low platelets, even with platelets given prior to the procedure secondary to risk for bleeding. Objective - Vital Signs Vital signs: Vital Signs Temp 98.0 F 07/03/16 08:25 Pulse 83 07/03/16 08:25 Resp 20 07/03/16 08:25 BP 163/72 07/03/16 08:25 Pulse Ox 100 07/03/16 08:25 Intake & Output 07/02/16 07/03/16 07/03/16 18:59 06:59 18:59 Intake Total 50 Output Total 4 Balance -4 50 Weight 61.5 kg Intake: Oral 50 Output: Stool 4 Other: Voiding Method Diaper Diaper Diaper # Voids 1 1 - Exam PHYSICAL EXAM: VITAL SIGNS: As above GENERAL: [Sitting up in bed, tired appearing HEENT: [Pupils equal conjunctiva normal.] NECK: [Supple, no JVD] RESPIRATORY EFFORT:[Normal] LUNGS: [Essentially clear, bilateral bases diminished, no crackles wheezes or rhonchi] CARDIOVASCULAR[regular S1 and S2, no murmurs rubs or gallops, no edema] GI: [Abdomen soft, nontender, positive bowel sounds.] PSYCH: [Alert and oriented -1-2, pleasantly confused NEURO: Gross neurological examination did not reveal any focal deficits, moves all 4 extremities, strength and sensation grossly intact - Labs CBC & Chem 7: 07/04/16 06:55 07/03/16 08:52 Labs: Abnormal Lab Results - Last 24 Hours (Table) 07/03/16 07/03/16 Range/Units 08:46 08:52 WBC 3.5 L (3.8-10.6) k/uL RBC 2.85 L (4.30-5.90) m/uL Hgb 8.3 L D (13.0-17.5) gm/dL Hct 26.7 L (39.0-53.0) % RDW 18.0 H (11.5-15.5) % Plt Count 46 L* (150-450) k/uL Lymphocytes # 0.7 L (1.0-4.8) k/uL Sodium 149 H (137-145) mmol/L Chloride 121 H* (98-107) mmol/L Carbon Dioxide 18 L (22-30) mmol/L BUN 52 H (9-20) mg/dL Glucose 184 H (74-99) mg/dL Calcium 8.3 L (8.4-10.2) mg/dL Assessment and Plan Plan: 1. [Left sided pleural effusion, status post thoracentesis, the patient with retroperitoneal lymphadenopathy]. 2. [History of colon CA]. 3. [Acute renal failure with prerenal azotemia secondary to severe intravascular depletion,. 4. [Hyperkalemia secondary to renal failure and BERNIE inhibitor]. 5. [Acute hypoxic respiratory failure secondary to left-sided pleural effusion, improved post thoracentesis]. 6. [Generalized deconditioning]. 7. [Hypertension]. 8. Hyperlipidemia. 9. Mediastinal and hilar lymphadenopathy, rule out malignancy. Not a candidate for diagnostic bronchoscopy per pulmonary 10. Multiple vague liver lesions, Liver metastasis per liver ultrasound. 11. Hyperchloremic 12. Hypernatremia 13. No Code, No CPR, No Intubation Plan: Continue on current medication regime ,monitoring and symptomatic treatment. Family at bedside, updated on plan of care, re-discussed comfort care/hospice as previously discussed by Dr. wade. Discharge planning in progress for [facility] with hospice. The impression and plan of care has been dictated as directed. .: I performed a H&P examination of this patient and discussed the same with the dictator. I agree with the dictator's note. Any additional findings/opinions/ etc. will be noted.
[2016-07-04] MEDS: HYDROcodone/APAP 5-325MG 1 EACH TAB PO PRN (22:11)
[2016-07-05 07:54] LABS: Anisocytosis Slight; Basophils % (A) 0 %; CH 29.2; CHCM 31.5; Eosinophils # (A) 0.1 k/uL (0-0.7); Eosinophils % (A) 1 %; HCT 25.9 % (39.0-53.0); HGB 8.2 gm/dL (13.0-17.5); Hypochromasia Slight; Luc # (Auto) 0.07; Luc % (Auto) 1; Lymphocytes # (A) 0.7 k/uL (1.0-4.8); Lymphocytes % (A) 12 %; MCH 29.5 pg (25.0-35.0); MCHC 31.5 g/dL (31.0-37.0); MCV 93.4 fL (80.0-100.0); Mean Platelet Volume 7.4; Monocytes # (A) 0.2 k/uL (0-1.0); Monocytes % (A) 4 %; Neutrophils # (A) 4.4 k/uL (1.3-7.7); Neutrophils % (A) 82 %; RBC 2.77 m/uL (4.30-5.90); RDW 18.1 % (11.5-15.5); WBC 5.3 k/uL (3.8-10.6); WBC (Perox) 5.64
[2016-07-05] MEDS: DOCUSATE 100 MG CAP PO SCH (08:01)
[2016-07-05] MEDS: ISOSORBIDE MONONITRATE ER 30 MG TAB.ER.24H PO SCH (08:01)
[2016-07-05] MEDS: FAMOTIDINE 20 MG TAB PO SCH (08:01)
[2016-07-05] MEDS: FOLIC ACID 1 MG TAB PO SCH (08:01)
[2016-07-05] MEDS: ATENOLOL 50 MG TAB PO SCH (08:01)
[2016-07-05] MEDS: PREGABALIN 50 MG CAP PO SCH (08:01)
[2016-07-05] MEDS: predniSONE 20 MG TAB PO SCH (08:01)
[2016-07-05] MEDS: IPRATROPIUM-ALBUTEROL 3 ML NEB INHALATION SCH (09:33)
[2016-07-05 09:55] VITALS: BP 165/74; PULSE 102; RESP 18; TEMP 97.6
--- NOTE | 2016-07-05 12:52 | DS ---
DATE OF ADMISSION: 06/20/2016 DATE OF DISCHARGE: 07/05/2016 The patient is admitted to the hospital here with right side pleural effusion. The patient was made hospice because of a possibility of metastatic colon cancer. Please refer to my discharge summary from a nurse practitioner yesterday for further details. Patient ended up staying in the hospital because she is a transfer to [facility]. They are able to accept the patient today. Patient is seen and examined on the day of discharge. For further details and rest of details, please refer to my nurse practitioner dictation from yesterday.
== END 2016-07-05 10:48 | DRG 435 ==
LOC: 6SEL 15:46 → 5ONC 06-25 21:31
PROVIDERS: ADMIT Internal Medicine; ATTEND Internal Medicine
PROC: 0W9B3ZX Drainage of Left Pleural Cavity, Percutaneous Approach, Diagnostic (ICD-10-PCS; principal; 2016-06-23)
DX: C78.7 Secondary malignant neoplasm of liver and intrahepatic bile duct (principal); J96.01 Acute respiratory failure with hypoxia; G93.41 Metabolic encephalopathy; N17.9 Acute kidney failure, unspecified; J91.0 Malignant pleural effusion; D61.818 Other pancytopenia; C77.5 Secondary and unspecified malignant neoplasm of intrapelvic lymph nodes; C18.9 Malignant neoplasm of colon, unspecified; E87.0 Hyperosmolality and hypernatremia; E87.2 Acidosis; C77.1 Secondary and unspecified malignant neoplasm of intrathoracic lymph nodes; E87.8 Other disorders of electrolyte and fluid balance, not elsewhere classified; I25.10 Atherosclerotic heart disease of native coronary artery without angina pectoris; D69.6 Thrombocytopenia, unspecified; Z51.5 Encounter for palliative care; Z66 Do not resuscitate; I10 Essential (primary) hypertension; E78.5 Hyperlipidemia, unspecified; E87.5 Hyperkalemia; E86.9 Volume depletion, unspecified; M19.90 Unspecified osteoarthritis, unspecified site; T50.2X5A Adverse effect of carbonic-anhydrase inhibitors, benzothiadiazides and other diuretics, initial encounter; T46.4X5A Adverse effect of angiotensin-converting-enzyme inhibitors, initial encounter; R10.30 Lower abdominal pain, unspecified; R14.0 Abdominal distension (gaseous); G93.89 Other specified disorders of brain; R32 Unspecified urinary incontinence; I67.9 Cerebrovascular disease, unspecified; R74.8 Abnormal levels of other serum enzymes; K59.00 Constipation, unspecified; D72.829 Elevated white blood cell count, unspecified; R53.1 Weakness; N40.0 Benign prostatic hyperplasia without lower urinary tract symptoms; R26.9 Unspecified abnormalities of gait and mobility; H91.90 Unspecified hearing loss, unspecified ear; H54.7 Unspecified visual loss; R63.4 Abnormal weight loss; R29.703 NIHSS score 3; Z71.3 Dietary counseling and surveillance; Z88.0 Allergy status to penicillin; Z88.8 Allergy status to other drugs, medicaments and biological substances; Z90.49 Acquired absence of other specified parts of digestive tract; Z85.828 Personal history of other malignant neoplasm of skin; Z87.891 Personal history of nicotine dependence; Z79.899 Other long term (current) drug therapy; Z98.42 Cataract extraction status, left eye; Z98.41 Cataract extraction status, right eye
CPT/HCPCS: 70450; 70551; 71010; 71020; 71250; 74177; 76604; 76705; 80048; 80053; 81003; 82550; 82553; 82607; 82728; 83540; 83550; 83615; 83735; 83883; 84100; 84165; 84484; 85025; 85027; 85045; 85049; 85610; 85652; 85730; 86038; 86039; 86334; 86431; 87086; 87205; 87324; 88108; 88305; 88341; 88342; 89050; 94640; 94760; 95819